=== PATIENT | female | born 1980 ===

== ENCOUNTER 2020-08-30 12:55 | Outpatient (REF) | payer OTHER, SELFPAY ==
[2020-09-05 17:38] LABS: HPV mRNA E6/E7 Detected (Not Detected)
[2020-09-11 10:18] LABS: HPV 16 RNA NOT DETECTED
== END 2020-08-30 12:56 | disposition home or self-care (01) ==
LOC: HO.LAB 12:55
PROVIDERS: Visit Provider Advanced Practice Midwife
DX: Z34.90 Encounter for supervision of normal pregnancy, unspecified, unspecified trimester (principal); R10.32 Left lower quadrant pain; Z20.2 Contact with and (suspected) exposure to infections with a predominantly sexual mode of transmission
CPT/HCPCS: 36415; 81025; 87491; 87591; 87624; 87625; 88141; 88142

== ENCOUNTER 2020-09-02 13:36 | Outpatient (REF) | payer OTHER, SELFPAY ==
--- NOTE | 2020-09-02 13:40 | US_ITS ---
EXAMINATION: LIMITED OB ULTRASOUND CLINICAL INFORMATION: Check size and dates COMPARISON: None TECHNIQUE: Transabdominal first trimester OB ultrasound FINDINGS: The uterus is normal in size and shape. There is an intrauterine gestational sac. [place]-rump length measures 5.9 cm suggesting gestational age of 12 weeks 3 days with estimated date of delivery of 03/14/2021. heart rate is 158 bpm. There is no yolk sac is seen. The right ovary is not seen. The left ovary is normal-appearing and measures 2.4 x 1.5 x 2.1 cm. There is no fluid in the pelvis. US/US OB limited IMPRESSION: Single viable intrauterine . From today's measurements, gestational age is estimated at 12 weeks 3 days with estimated date of delivery of 03/14/2021.
== END 2020-09-02 13:37 | disposition home or self-care (01) ==
LOC: HO.US 13:36
PROVIDERS: Visit Provider Advanced Practice Midwife
DX: Z34.90 Encounter for supervision of normal pregnancy, unspecified, unspecified trimester (principal)
CPT/HCPCS: 76815; 99212

== ENCOUNTER 2020-09-05 09:52 | Day surgery (SDC) | payer OTHER, SELFPAY ==
--- NOTE | 2020-09-04 09:25 | P.CONAN_ITS ---
Documented by User: Bianca Irizarry 09/04/20 09:28 HPI - Anesthesia Eval Consult details Narrative: 40yo F for D&C [facility] Past Medical History Medical History Gestational diabetes Family History Family History Mother Liver cancer Surgical History Surgical History Hx of appendectomy Hx of cholecystectomy Social History Social History Alcohol intake: never Smoking Status: Never smoker Use of substances other than those prescribed or required for medical reasons: No Advance Directives: No Advance Directives Information Provided: Yes Gender identity: female Meds Allergies Allergy/AdvReac Type Severity Reaction Status Date / Time No Known Allergies Allergy Verified 09/02/20 14:16 [No Known Allergies*] Exam Exam Date and Time: September 04, 2020 0925 Airway Adult Head Mouth w/Numbe Teeth: 1. Missing 2. Missing 3. Missing 4. Missing 5. Missing Assessment and Plan Assessment Anesthesia Assessment: Chart Reviewed Documented by User: José Batres MD 09/05/20 11:48 [facility] Past Medical History Medical History Gestational diabetes Family History Family History Mother Liver cancer Surgical History Surgical History Hx of appendectomy Hx of cholecystectomy Social History Social History Alcohol intake: never Smoking Status: Never smoker Use of substances other than those prescribed or required for medical reasons: No Advance Directives: No Advance Directives Information Provided: Yes Gender identity: female Meds Allergies Allergy/AdvReac Type Severity Reaction Status Date / Time No Known Allergies Allergy Verified 09/02/20 14:16 [No Known Allergies*] Exam Airway Mallampati Class: II TM Dist: >3cm Neck ROM: Full Adult Head Mouth w/Numbe Teeth: 1. Missing 2. Missing 3. Missing 4. Missing 5. Missing Loose/Missing/Broken Teeth: Yes Heart: RRR Lungs: nonlabored Assessment and Plan Assessment Anesthesia Assessment: Anesthesia Plan Discussed and Chart Reviewed Final Anesthetic Review NPO: Yes ASA Class: II Final Preanesthetic Review: No Changes in Pt Med Stat, Meds/Allgs Chart Reviewed, Consent Obtained/Reviewed and Anes Risks/Benef Reviewed Patient Risk: Low Procedure Risk: Low Anesthetic Plan Anesthetic Plan: GA Disposition: Standard PACU
[2020-09-05 10:05] VITALS: BP 123/64; PULSE 100; RESP 16; TEMP 37.2; O2SAT 98
[2020-09-05 10:14] VITALS: BMI 27.1
[2020-09-05] MEDS: Lactated Ringers 1,000 ML 100 ML IVCONT (10:35)
--- NOTE | 2020-09-05 11:38 | MHC.SHP ---
Pre-Procedural Eval Section A The patient is an INPATIENT: No Changes since office visit: No Cold of Flu in the past 2 weeks, No New Medical Problems, No Changes in Medication and No Patient answered all questions The History & Physical has been completed within 30 days and I have reviewed it.: Yes Section B Chief Complaint: unwanted Allergies: Allergies Allergy/AdvReac Type Severity Reaction Status Date / Time No Known Allergies Allergy Verified 09/02/20 14:16 [No Known Allergies*] Plan I have reviewed the history and physical and performed a pertinent physical examination on my patient. No changes have occurred unless specified.
--- NOTE | 2020-09-05 11:58 | HO.ANESPROP2 ---
[facility] Past Medical History Medical History Gestational diabetes Family History Family History Mother Liver cancer Surgical History Surgical History Hx of appendectomy Hx of cholecystectomy Social History Social History Alcohol intake: never Smoking Status: Never smoker Use of substances other than those prescribed or required for medical reasons: No Advance Directives: No Advance Directives Information Provided: Yes Gender identity: female Meds Allergies Allergy/AdvReac Type Severity Reaction Status Date / Time No Known Allergies Allergy Verified 09/02/20 14:16 [No Known Allergies*] Exam Exam Date and Time: September 05, 2020 1158 Height,Weight and Vital Signs: Height 5 ft 3 in Weight 69.4 kg Last Vital Signs Temp 98.9 F 09/05/20 10:05 Pulse 100 09/05/20 10:05 Resp 16 09/05/20 10:05 BP 123/64 09/05/20 10:05 Pulse Ox 98 09/05/20 10:05 Airway Mallampati Class: II TM Dist: >3cm Neck ROM: Full Assessment and Plan Assessment Anesthesia Assessment: Anesthesia Plan Discussed Final Anesthetic Review NPO: Yes ASA Class: II Final Preanesthetic Review: No Changes in Pt Med Stat, Meds/Allgs Chart Reviewed, Consent Obtained/Reviewed and Anes Risks/Benef Reviewed Patient Risk: Low Procedure Risk: Low Assessment/Block/Sedation in SS: Assess/Block/Sedation-SS Anesthetic Plan Anesthetic Plan: MAC: Disposition: Standard PACU
--- NOTE | 2020-09-05 12:24 | W.PM.OPN ---
Operative Note Operative Note Date of Service: 09/05/20 Narrative: Ms. Holliday is a 40 year old with SIUP at 12 6/7 weeks by wk . She presents today for suction dilation and curettage for termination. Surgical Risks: The patient was informed of the risks and benefits of suction dilation and curettage. Risks included but were not limited to bleeding, infection, injury to the vulva, vagina, or cervix, and uterine perforation with possible need for further surgery. The patient expressed understanding of the risks involved, all questions were answered, and the patient consented to the procedure. The patient was taken to the operating room where a time out was confirmed to confirm correct patient and correct procedure. Adequate IV sedation was established. The patient was then positioned on the operating table in the dorsal lithotomy position with her legs supported using stirrups. All pressure points were padded and a warm blanket was placed to maintain control of core body temperature. The patient was then prepped and draped in the usual sterile fashion. A bimanual exam was performed and the uterus was found to be approximately 13 cm size, anteverted. A bivalve speculum was then inserted into the vagina. The anterior lip of the cervix was visualized and grasped using a single tooth tenaculum. The cervix was adequately dilated using Carter dilators for the introduction of the size 14 suction curette. The suction curette was then introduced and advanced to the fundus and suction was applied. The suction curette was rotated in a clockwise fashion as it was slowly withdrawn. Suction was turned off before the curette was removed through the cervix. A second pass with the curette was made with no further tissue noted and minimal blood. Suction was turned off before the curette was removed. A size 8 suction curette was then advanced to the fundus and suction applied. The curette was rotated in a clockwise fashion as it was slowly withdrawn. No further return of tissue or blood was noted and suction was turned off before the curette was then removed. A sharp curette was then introduced and sharp curettinging was performed starting at the 12 o?clock position and rotating a total of 360 degrees in order to confirm the uterine crie was present on all surfaces. Following the curetting, good hemostasis was noted. The products of conception were then examined to confirm two uppers, two lowers, spinal cord, cranium, intestines, and placenta were all identified. POC were sent to pathology. The single-tooth tenaculum was removed from the anterior lip of the cervix and hemostasis was also noted at the tenaculum puncture sites. The speculum was then removed from the vagina. At the end of the procedure, all needle, sponge, and instrument counts were noted to be correct x2. The patient was transferred to the recovery room in stable condition.
[2020-09-05 12:30] VITALS: BP 107/65; PULSE 87; RESP 16; TEMP 36.6; O2SAT 98
[2020-09-05 12:35] VITALS: BP 111/70; PULSE 90; RESP 16; O2SAT 100
[2020-09-05 12:40] VITALS: BP 117/55; PULSE 81; RESP 16; O2SAT 100
[2020-09-05 12:45] VITALS: BP 117/51; PULSE 81; RESP 20; O2SAT 100
[2020-09-05 13:00] VITALS: BP 115/55; PULSE 82; RESP 20; O2SAT 100
--- NOTE | 2020-09-05 13:48 | HO.POSTANES ---
Post Anesthesia Evaluation Post Anesthesia Evaluation Vital Signs: Vital Signs Temp Pulse Resp BP Pulse Ox 09/05/20 13:00 97.9 F 82 20 115/55 L 100 09/05/20 12:45 81 20 117/51 L 100 09/05/20 12:40 81 16 117/55 L 100 09/05/20 12:35 90 16 111/70 100 09/05/20 12:30 97.9 F 87 16 107/65 98 09/05/20 10:05 98.9 F 100 16 123/64 98 Anesthesia: Monitored Mental Status: Awake Pain Control: Satisfactory Nausea/Vomiting: None Hydration: Adequate Anesthesia-Related Issues: No Anes. Related Issues
== END 2020-09-05 14:25 | disposition home or self-care (01) ==
LOC: HO.SSS 09:54
PROVIDERS: Visit Provider Obstetrics & Gynecology
PROC: (CPT 59841; principal; 2020-09-05 11:20)
DX: Z33.2 Encounter for elective termination of pregnancy (principal); Z64.0 Problems related to unwanted pregnancy; Z90.49 Acquired absence of other specified parts of digestive tract
CPT/HCPCS: 59841; 88305; J2250; J2405; J3010

== ENCOUNTER → 2020-09-18 11:44 | Outpatient (BNVA) | payer OTHER, SELFPAY | PROVIDERS: Visit Provider Obstetrics & Gynecology ==

== ENCOUNTER → 2020-10-07 13:13 | Outpatient (BNVA) | payer OTHER, SELFPAY | PROVIDERS: Visit Provider Advanced Practice Midwife | DX: Z30.42 Encounter for surveillance of injectable contraceptive (principal) | CPT/HCPCS: 96372 ==

== ENCOUNTER 2020-11-04 14:00 | Outpatient (REF) | payer OTHER, SELFPAY | END 2020-11-04 14:01 | disposition home or self-care (01) | LOC: HO.LAB 14:00 | PROVIDERS: Visit Provider Obstetrics & Gynecology | DX: N87.0 Mild cervical dysplasia (principal) | CPT/HCPCS: 57454; 81025; 88305 ==

== ENCOUNTER → 2020-11-26 13:48 | Outpatient (BNVA) | payer OTHER, SELFPAY | PROVIDERS: Visit Provider Obstetrics & Gynecology ==

== ENCOUNTER → 2021-02-19 14:55 | Outpatient (BNVA) | payer OTHER, SELFPAY | PROVIDERS: Visit Provider Advanced Practice Midwife | DX: Z30.42 Encounter for surveillance of injectable contraceptive (principal) | CPT/HCPCS: 81025; 96372; 99212 ==

== ENCOUNTER → 2021-03-20 15:12 | Outpatient (BNVA) | payer OTHER, SELFPAY | PROVIDERS: Visit Provider Advanced Practice Midwife ==

== ENCOUNTER → 2021-05-16 13:08 | Outpatient (BNVA) | payer OTHER, SELFPAY | PROVIDERS: Visit Provider Advanced Practice Midwife | DX: Z30.42 Encounter for surveillance of injectable contraceptive (principal) | CPT/HCPCS: 96372; 99211 ==

== ENCOUNTER → 2021-08-07 12:35 | Outpatient (BNVA) | payer OTHER, SELFPAY | PROVIDERS: Visit Provider Advanced Practice Midwife | DX: Z30.42 Encounter for surveillance of injectable contraceptive (principal) | CPT/HCPCS: 96372; 99211 ==

== ENCOUNTER → 2021-10-31 09:10 | Outpatient (BNVA) | payer OTHER, SELFPAY | PROVIDERS: Visit Provider Advanced Practice Midwife | DX: Z30.42 Encounter for surveillance of injectable contraceptive (principal) | CPT/HCPCS: 96372; 99211 ==

== ENCOUNTER 2021-11-07 10:08 | Outpatient (REF) | payer OTHER, SELFPAY ==
[2021-11-07 17:54] LABS: CT PCR NOT DETECTED (Not Detect.); NG PCR NOT DETECTED (Not Detect.)
[2021-11-14 07:22] LABS: HPV 16 RNA NOT DETECTED (NOT DETECTED); HPV mRNA E6/E7 rflx Detected (Not Detected)
== END 2021-11-07 10:09 | disposition home or self-care (01) ==
LOC: HO.LAB 10:08
PROVIDERS: Visit Provider Advanced Practice Midwife
DX: Z01.411 Encounter for gynecological examination (general) (routine) with abnormal findings (principal); Z11.51 Encounter for screening for human papillomavirus (HPV); Z11.3 Encounter for screening for infections with a predominantly sexual mode of transmission; N87.0 Mild cervical dysplasia
CPT/HCPCS: 87491; 87591; 87624; 87625; 88142

== ENCOUNTER → 2022-01-29 15:03 | Outpatient (BNVA) | payer OTHER, SELFPAY | PROVIDERS: Visit Provider Advanced Practice Midwife | DX: Z30.42 Encounter for surveillance of injectable contraceptive (principal) | CPT/HCPCS: 96372; 99211 ==

== ENCOUNTER 2022-02-17 15:28 | Outpatient (REF) | payer OTHER, SELFPAY | END 2022-02-17 15:29 | disposition home or self-care (01) | LOC: HO.LAB 15:28 | PROVIDERS: Visit Provider Obstetrics & Gynecology | DX: R87.610 Atypical squamous cells of undetermined significance on cytologic smear of cervix (ASC-US) (principal); R87.810 Cervical high risk human papillomavirus (HPV) DNA test positive | CPT/HCPCS: 57454; 88305; 88342; 88360 ==

== ENCOUNTER → 2022-04-27 12:51 | Outpatient (BNVA) | payer OTHER, SELFPAY | PROVIDERS: Visit Provider Advanced Practice Midwife | DX: Z30.42 Encounter for surveillance of injectable contraceptive (principal) | CPT/HCPCS: 96372; 99211 ==

== ENCOUNTER → 2022-06-15 13:40 | Outpatient (BNVA) | payer OTHER, SELFPAY | PROVIDERS: Visit Provider Obstetrics & Gynecology | DX: Z71.2 Person consulting for explanation of examination or test findings (principal) | CPT/HCPCS: 99212 ==

== ENCOUNTER 2022-07-10 11:39 | Day surgery (SDC) | payer OTHER, SELFPAY ==
[2022-07-07 10:11] VITALS: BMI 31.6
--- NOTE | 2022-07-10 12:32 | MHC.SHP ---
Pre-Procedural Eval Section A Date of Service: 07/10/22 The patient is an INPATIENT: No Changes since office visit: No Cold of Flu in the past 2 weeks, No New Medical Problems, No Changes in Medication and No Patient answered all questions The History & Physical has been completed within 30 days and I have reviewed it.: Yes Section B Chief Complaint: Persistent RIDDHI 1, no endocervical tissues on ECC Allergies: Allergies Allergy/AdvReac Type Severity Reaction Status Date / Time No Known Allergies Allergy Verified 07/07/22 10:11 [No Known Allergies*] Plan Diagnosis/Plan: Unchanged I have reviewed the history and physical and performed a pertinent physical examination on my patient. No changes have occurred unless specified.
--- NOTE | 2022-07-10 12:34 | P.CONAN_ITS ---
[facility] Active Problems Active Problems: All Active Problems (Updated 06/15/22 @ 14:16 by Seth Pagan MD) ASCUS with positive high risk HPV cervical (Acute) ASCUS of cervix with negative high risk HPV (Acute) RIDDHI I (cervical intraepithelial neoplasia I) (Acute) ASCUS with positive high risk HPV (Acute) Depot contraception (Acute) Family History Family History Mother Liver cancer Family history of problems with anesthesia: No Surgical History Surgical History Hx of appendectomy Hx of cholecystectomy History of Problems with Anesthesia: No Social History Social History (Updated 07/07/22 @ 10:17 by Jelly Hernandez RN) Household Members Other:: daughter Are you a primary acute care clinical nurse specialist to a significant other at home: No Do you presently have visiting nurse or other home services: No Alcohol intake: never Patient Tobacco Use Status: Never used Tobacco Use of substances other than those prescribed or required for medical reasons: No Have you been hit, kicked, punched, or otherwise hurt by someone within the past year? If so, by whom?: No Are you DNR?: No Advance Directives: No Advance Directives Information Provided: Yes Advance Directives on File: No Recently lost weight without trying: No Nutrition Risks: No Nutritional Risk Patient : No FDLMP: unknown : No Poor oral hygiene: No (partial upper) Gender identity: Female Meds Allergies Allergy/AdvReac Type Severity Reaction Status Date / Time No Known Allergies Allergy Verified 07/07/22 10:11 [No Known Allergies*] Active Medications: Current Medications Lactated Ringer's (Lr) 1,000 mls @ 100 mls/hr IVCONT .Q10H OLIVIER Exam Exam Date and Time: July 10, 2022 1234 Height,Weight and Vital Signs: Height 5 ft 3 in Weight 81 kg Airway Mallampati Class: II TM Dist: >3cm Neck ROM: Full Partial: Upper Heart: rrr Lungs: cta Assessment and Plan Assessment Anesthesia Assessment: Anesthesia Plan Discussed and Chart Reviewed Final Anesthetic Review Family History of Problems with Anesthesia: No History of Problems with Anesthesia: No NPO: Yes ASA Class: I Final Preanesthetic Review: No Changes in Pt Med Stat, Meds/Allgs Chart Reviewed and Consent Obtained/Reviewed Patient Risk: Intermediate Procedure Risk: Intermediate Anesthetic Plan Anesthetic Plan: GA Disposition: Standard PACU
[2022-07-10 12:40] VITALS: BP 115/69; PULSE 91; RESP 18; TEMP 37.1; O2SAT 98; BMI 27.9
[2022-07-10 12:58] VITALS: BMI 27.9
[2022-07-10 13:04] LABS: Amphetamine Screen Urine Not Detected (Not Detect); Barbiturates, Urine Not Detected (Not Detect); Benzodiazepines Screen Urine Not Detected (Not Detect); Cannabinoid Screen Urine Not Detected (Not Detect); Cocaine Screen Urine Not Detected (Not Detect); Fentanyl, urine Not Detected (Not Detect); Opiate Screen Urine Not Detected (Not Detect); Phencyclidine Screen Urine Not Detected (Not Detect)
[2022-07-10] MEDS: Lactated Ringers 1,000 ML 100 ML IVCONT (13:15)
[2022-07-10 13:55] LABS: UPreg QC Valid YES; Urine Pregnancy NEGATIVE (NEGATIVE)
--- NOTE | 2022-07-10 14:19 | PM.OP ---
Brief Operative Note Date of Service: 07/10/22 Pre-op diagnosis: Persistent RIDDHI 1 and no tissues on endocervical curettage Post-op diagnosis: same Procedure: LEEP cone with post cone endocervical curettage Surgeon: Seth Pagan MD Anesthesia: GLMA Was an Rubber Compounder Supervisor used for this Procedure?: No Estimated blood loss (mL): 0 Pathology: other (Cervical cone, top-hat, Post cone ECC) Condition: stable Disposition: other (Home)
--- NOTE | 2022-07-10 14:20 | P.OP_ITS ---
Operative Note Operative Note Date of Service: 07/10/22 Narrative: Pre op diagnosis: Persistent RIDDHI 1 with no endocervical tissues on ECCOperation: Colposcopy, Loop electrical excision procedure cone, top hat endocervical excision, post cone ECC Postop diagnosis: the same Quantitative blood loss: Minimal cc Surgeon: Seth Pagan MD, FACOG Opto Mechanical Engineer: None Pathology: Cervical cone, top-hat endo cervical excision, endo cervical curettage Complications: none Anesthesia: MAC and Para cervical block Procedure: The patient was put in a dorsal lithotomy position, scrubbed and draped in the usual sterile fashion. A speculum was inserted inside the patient's vagina. The cervix is assessed using the colposcope with acetic acid , the lesions were seen, and at least 1 cm of the squamocolumnar junction was observed. 20 x 5 mm size loop was selected based upon the diameter of the lesion. Lugol solution was used to outline the lesions and area of the transformation zone order to be removed 10 cc of xylocaine with epinephrine were injected submucosally into the surface of the cervix (ectocervix) at the 3, 6, 9, and 12 o'clock positions. The electrosurgical generator is set at 40 delgado on blend 1. The loop is carefully passed simultaneously around and under the transformation zone, in order to ensure excising it making sure the lesion is at least 5 mm far from the specimen margins . The loop was allowed to glide through the cervix from one side to the other, allowing the cutting current to divide the tissue. Since ECC did not contain any endocervical tissues endo cervical disease could be beyond the reach of the loop, additional tissue was excised from this area with a smaller-diameter loop , endo cervical top-hat excision was performed An endo cervical curettage is performed following completion of excision, and hemostasis is obtained with a Ball electrode or regular tip cautery. At the end, Monsel's solution was applied to the cone bed. The patient tolerated the procedure well and, all instruments were taken out of the patient vaginal cavity, and the patient was transferred to the PACU in stable condition.
[2022-07-10 14:31] VITALS: BP 106/74; PULSE 89; RESP 14; TEMP 37.1; O2SAT 98
[2022-07-10 14:36] VITALS: BP 129/84; PULSE 97; RESP 16; O2SAT 98
[2022-07-10 14:41] VITALS: BP 130/86; PULSE 81; RESP 16; O2SAT 96
[2022-07-10 14:46] VITALS: BP 141/84; PULSE 79; RESP 16; O2SAT 96
[2022-07-10 15:01] VITALS: BP 135/84; PULSE 80; RESP 16; TEMP 37.2; O2SAT 96
== END 2022-07-10 15:26 | disposition home or self-care (01) ==
PROVIDERS: Nurse Practitioner; PCP Obstetrics & Gynecology; Visit Provider Obstetrics & Gynecology
PROC: 0UBC7ZZ Excision of Cervix, Via Natural or Artificial Opening (ICD-10-PCS; CPT 57522; principal; 2022-07-10 13:10)
DX: N87.0 Mild cervical dysplasia (principal); Z90.49 Acquired absence of other specified parts of digestive tract; Z79.1 Long term (current) use of non-steroidal anti-inflammatories (NSAID); Z79.899 Other long term (current) drug therapy
CPT/HCPCS: 57461; 80307; 81025; 88305; 88307; J1100; J2405; J3010

== ENCOUNTER → 2022-07-21 15:23 | Outpatient (BNVA) | payer OTHER, SELFPAY | PROVIDERS: PCP Obstetrics & Gynecology; Visit Provider Advanced Practice Midwife | DX: Z30.42 Encounter for surveillance of injectable contraceptive (principal) | CPT/HCPCS: 96372; 99211 ==

== ENCOUNTER → 2022-10-07 13:02 | Outpatient (BNVA) | payer OTHER, SELFPAY | PROVIDERS: Visit Provider Obstetrics & Gynecology | DX: N87.0 Mild cervical dysplasia (principal) | CPT/HCPCS: 99212 ==

== ENCOUNTER → 2022-10-19 08:55 | Outpatient (BNVA) | payer OTHER, SELFPAY | PROVIDERS: Visit Provider Advanced Practice Midwife | DX: Z30.42 Encounter for surveillance of injectable contraceptive (principal) | CPT/HCPCS: 96372; 99211 ==

== ENCOUNTER → 2023-01-11 08:59 | Outpatient (BNVA) | payer BC, MEDICAID, SELFPAY | PROVIDERS: Visit Provider Advanced Practice Midwife | DX: Z30.42 Encounter for surveillance of injectable contraceptive (principal) | CPT/HCPCS: 96372 ==

== ENCOUNTER 2023-02-01 08:51 | Emergency (ER) | payer BC, MEDICAID, SELFPAY ==
--- NOTE | ~2023-02-01 | CT_ITS ---
EXAMINATION: CT HEAD WITHOUT CONTRAST CLINICAL INFORMATION: Fall, struck head, on blood thinners COMPARISON: None available. TECHNIQUE: Contiguous axial imaging was performed from the skull base to vertex without intravenous administration of contrast. This CT examination was performed using dose optimization techniques as appropriate, variously including the following: *Automated exposure control *Adjustment of mA and/or kV according to patient size (this includes techniques or standardized protocols for targeted exams where dose is matched to indication/reason for exam; i.e. extremities or head) *Use of iterative reconstruction technique DLP: 618 mGy-cm FINDINGS: No evidence for acute bleed or mass effect. Cisterns are unremarkable. No intraventricular blood seen. There is no evidence for extra-axial collection. [place]/white matter differentiation is maintained. The mastoids appear well aerated. Skull base unremarkable. No appreciable calvarial disruption. CT/CT head/brain wo IV con IMPRESSION: No evidence for acute process.
[2023-02-01 09:14] VITALS: BP 131/72; PULSE 78; TEMP 36.4; O2SAT 98; BMI 25.4
--- NOTE | 2023-02-01 09:30 | ED.GENADULT ---
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 She describes the pain as over her left eye and around her left ear. Also reports receiving news of 1-year-old nephew drowning on Wednesday, so increased stress since then. Reports headache was gradual onset, denies worst headache of life. Denies syncope. Denies any falls or other trauma. Denies blurred vision, double vision, or other visual changes. Reports left ear pain is exacerbated by loud noises. Denies chest pain or dyspnea. Denies any recent tick bites, reports pruritic rash to bilateral forearms. She states that her forearm rash is poison nolan which is activated every year by pollen in the air. Used Tylenol/ibuprofen without relief. MD complaint: headache, left arm tingling Onset (ago): day(s) Location: head and upper extremity Severity scale (1-10): 8 Quality: dull Pain Consistency: constant Relieving factors: none Exacerbating factors: none Associated symptoms: denies other symptoms Treatments prior to arrival: NSAID Related Data Previous Rx's Medication Instructions Recorded acetaminophen 325 mg capsule 650 mg PO Q8H #120 caps 09/04/20 ibuprofen 800 mg tablet 800 mg PO Q8H #60 tabs 09/04/20 medroxyprogesterone 150 mg/mL 150 mg IM Q12W #1 mL 01/05/23 intramuscular suspension doxycycline hyclate 100 mg capsule 100 mg PO BID #28 caps 02/01/23 prednisone 20 mg tablet 60 mg PO DAILY 7 days #21 tabs 02/01/23 valacyclovir 1 gram tablet 1,000 mg PO TID 7 days #21 tabs 02/01/23 Allergies Allergy/AdvReac Type Severity Reaction Status Date / Time No Known Allergies Allergy Verified 07/07/22 10:11 [No Known Allergies*] Review of Systems Review of Systems: As per HPI. Yes all other systems are reviewed and are negative ENT: Reports Normal hearing present Neurologic: Reports Normal hearing present and Denies Abnormal speech present [facility] Past Medical History Surgical History Hx of appendectomy Hx of cholecystectomy Family History Family History Mother Liver cancer Social History Social History Household Members Other:: daughter Are you a primary career manager to a significant other at home: No Do you presently have visiting nurse or other home services: No Alcohol intake: current Alcohol intake frequency: holidays/special occasions only Patient Tobacco Use Status: Never used Tobacco Smoked in Last 30 Days: No Use of substances other than those prescribed or required for medical reasons: No Advance Directives: No Advance Directives Information Provided: No Gender identity: Female Physical Exam ED Vital Signs: Vital Signs - 24 hr 02/01/23 09:14 02/01/23 09:42 02/01/23 12:21 Temperature 97.6 F 98.1 F Pulse Rate 78 78 81 Respiratory Rate 18 Blood Pressure 131/72 122/50 L 118/50 L Pulse Oximetry 98 97 100 Oxygen Delivery Method Room Air Room Air Room Air BMI result Body Mass Index 25.4 Vital signs have been reviewed and appear to be correct. Blood pressure normal. Heart rate normal. Respiratory rate normal. Temperature normal. Oxygen saturation normal. Const General: cooperative, healthy appearing, no acute distress, alert and awake Orientation/consciousness: patient oriented x3 Limitations: no limitations [facility] Head: Yes normal to inspection, Yes No palpable skull fracture present, Yes normocephalic, Yes atraumatic and No Temporal artery tenderness present Ears: hearing grossly normal bilaterally, TM's normal bilaterally, EAC's normal, external ear abnormal pain with movement of external ear on the left, mastoid abnormal (left mastoid tenderness) and no periauricular adenopathy General nose exam: Normal external nose present, Normal nares present and Normal septum present Face and sinus: Yes normal facial exam and Yes sinuses nontender Mouth: Normal oral and palatal mucosa present, tongue normal, oropharynx normal and moist mucous membranes Teeth and gingiva: dentition normal Throat: Yes posterior oropharynx normal, Yes tonsils normal and Yes uvula midline Eyes General: appearance normal, both eyes and all related structures Visual Cottrell: normal visual cottrell by confrontation Pupils: Equal, round and reactive pupils present EOM: EOMs intact bilaterally Neck Neck: Yes normal visual inspection, Yes full ROM and Yes supple Chest Chest palpation & inspection: normal inspection of the chest and normal palpation of entire chest wall Resp Effort & Inspection: normal respiratory effort and able to speak in complete sentences Auscultation: clear to auscultation bilaterally Cardio Rate: regular rate Rhythm: regular rhythm Heart sounds: S1 normal heart sound present and S2 normal heart sound present GI Inspection: Yes normal to inspection Palpation (GI): Soft to palpation and nontender Auscultation: normoactive bowel sounds General: Yes no CVA tenderness Back/Spine/Pelvis Back: no CVA tenderness Cervical Spine: No cervical muscular tenderness, No cervical spasm and No Cervical spine tenderness Skin Other: No erythema migrans noted General skin exam: elasticity normal and turgor normal Rashes: rashes noted papules bilateral mid forearm size (2-3mm) and color red; nontender Neuro General: patient oriented x3, tone normal, moves all extremities and Normal light touch and pain sensation Cranial nerves: Yes Facial sensation intact/muscles of mastication intact, Yes Intact sense of smell present, Yes Equal, round and reactive pupils present, Yes Normal accommodation reflex present, Yes Bilaterally intact EOM present, Yes Nystagmus not present, No Normal facial strength present (slight left facial droop with smile; unable to raise left eyebrow), Yes Midline tongue present, Yes Normal gag reflex present, Yes Symmetric palate elevation present, Yes Normal hearing present, Yes Ability to bilaterally rotate head present, Yes Ability to bilaterally elevate shoulders present and Yes Individual cranial nerve findings present VII: abnormal Cognition (Neuro): normal cognition Speech: No Abnormal speech present Motor exam (neuro): 5/5 motor strength present throughout, Pronator motor function not present, Normal motor muscle tone present throughout and Motor abnormalities not present Sensory Exam: Normal double simultaneous stimulation for sensation Extrem General: Yes normal to inspection, Yes full ROM and Yes capillary refill normal Psych Appearance: grossly normal and well kempt Mental Status: mental status grossly normal Speech and movement: Normal speech and movement present Affect: normal affect Attitude: cooperative NIH Stroke Scale Internal: Initial- Upon Arrival Time: 10:00 Level of Consciousness: Alert Level of Consciousness Questions: Answers both questions correctly Level of Consciousness Commands: Performs both tasks correctly Best Gaze: Normal Visual: No visual loss Facial Palsy: Minor paralyis Motor Arm (Right): No drift Motor Arm (Left): No drift Motor Leg (Right): No drift Motor Leg (Left): No drift Limb Ataxia: Absent Sensory: Normal Best Language: No aphasia Dysarthia: Normal Extinction and Inattention: No abnormality Score: 1 Course Course Course Narrative: 11:40 Patient denies relief of headache from medications administered. CT head negative for acute ICH, will order ketorolac. 12:29 Case discussed with and patient evaluated by Dr. Hannah, who feels symptoms are consistent with [place] Palsy. Patient stable for discharge home at this time. Will prescribe prednisone as well as doxycycline while tick panel is pending. Given recent onset of symptoms will also treat with valcyclovir. Instructed patient to follow up with her PCP this week. All results discussed and questions answered. Return precautions discussed at bedside. Patient verbalized understanding of and agreement with plan. Medications Administered Discontinued Medications Generic Name Dose Route Start Last Admin Trade Name Suryaq PRN Reason Stop Dose Admin Diphenhydramine HCl 25 mg 02/01/23 10:16 02/01/23 10:41 Diphenhydramine Hcl 50 Mg/Ml Vial IVPUSH 02/01/23 10:17 25 mg ONCE ONE Administration Sodium Chloride 1,000 mls @ 999 mls/hr 02/01/23 10:30 02/01/23 10:44 Ns IV 02/01/23 11:30 999 mls/hr .Q1H1M OLIVIER Administration Ketorolac Tromethamine 15 mg 02/01/23 11:34 02/01/23 11:46 Ketorolac Tromethamine 15 Mg/Ml Vial IVPUSH 02/01/23 11:35 15 mg ONCE ONE Administration Metoclopramide HCl 10 mg 02/01/23 10:16 02/01/23 10:42 Metoclopramide Hcl 10 Mg/2 Ml Vial IVPUSH 02/01/23 10:17 10 mg ONCE ONE Administration Medical Decision Making Medical Decision Making [facility] Narrative: Patient is a 42-year-old female with history of cervical neoplasia s/p LEEP in October of this year, cholecystectomy, appendectomy presenting to the emergency department with complaint of left sided headache, left ear pain, as well as tingling to left arm since Wednesday. On exam patient is awake, A+Ox3, VS WNL, NIHSS of 1, noted to have slight left facial droop with smile, tongue is midline, left mastoid tenderness, EACs and TMs normal bilaterally, PERRL, EOMs intact, normal shoulder shrug, no pronator drift, all extremities 5/5 equal strength. Concern for CVA/ICH, complex migraine, [place] palsy, mastoiditis. Less likely temporal arteritis. Will obtain EKG and troponin given left arm tingling. Unlikely acute glaucoma, carotid artery dissection, encephalitis, meningitis, pseudotumor cerebrii, giant cell arteritis. Plan: EKG, labs including troponin, ESR/CRP, tick borne panels, CT head. Please refer to course for remaining clinical decision making. Differential Diagnosis Differential Diagnoses: The differential diagnosis associated with the presentation includes As above. Admission/Observation Consideration of admission/observation: Escalation of care including admission/observation considered With left facial paralysis and headache considered admission on initial assessment. Consult Healthcare Provider Management of the patient was discussed with: Mental Health Unit Lead Psychologist (Dr. Hannah) Lab Data MDM Lab Attestation statement: I reviewed the patient's lab results. 02/01/23 10:09 02/01/23 10:09 Labs: Lab Results 02/01/23 02/01/23 02/01/23 Range/Units 10:09 10:09 10:09 WBC 6.7 (4.8-10.8) X10*3/uL RBC 4.51 (4.20-5.50) X10*6/uL Hgb 12.5 (12.0-16.0) g/dl Hct 39.1 (37.0-47.0) % MCV 86.7 (80.0-98.0) fL MCH 27.7 (27.0-33.0) pg MCHC 32.0 (31.0-35.0) g/dl RDW 13.9 (11.0-16.0) % Plt Count 396 (160-400) X10*3/uL MPV 9.1 L (9.4-12.3) fL Immature Gran % (Auto) 0.4 (0.0-0.4) % Neut % (Auto) 57.3 (45-73) % Lymph % (Auto) 33.1 (20-40) % Crosby % (Auto) 6.1 (2-11) % Eos % (Auto) 2.4 (0-4) % Baso % (Auto) 0.7 (0-2) % Lymph # (Auto) 2.2 (1.2-4.9) X10*3/uL Crosby # (Auto) 0.4 (0.1-1.2) X10*3/uL Eos # (Auto) 0.2 (0.0-0.4) X10*3/uL Baso # (Auto) 0.1 (0.0-0.2) X10*3/uL Abs Immat Gran (auto) 0.03 (0.00-0.03) X10*3/uL Absolute Neuts (auto) 3.9 (2.0-8.3) x10*3/uL Absolute Nucleated RBC 0.000 (0.0-0.012) X10*3/uL Nucleated RBC % (auto) 0.0 (0.0-0.2) /100WBC ESR 19 (0-20) MM/HR Sodium 139 (135-145) mmol/L Potassium 4.1 (3.3-5.1) mmol/L Chloride 108 (96-108) mmol/L Carbon Dioxide 23 (22-29) mmol/L Anion Gap 12 (12-20) BUN 9 (9-16) mg/dL Creatinine 0.74 (0.5-1.4) mg/dL Estim Creat Clear Calc 80.3 Estimated GFR > 60 Random Glucose 101 (60-115) mg/dL Calcium 9.4 (8.4-10.2) mg/dL Total Bilirubin 0.6 (0.0-1.0) mg/dL AST 21 (5-31) U/L ALT 19 (0-31) U/L Alkaline Phosphatase 59 (39-117) U/L Troponin I High Sens (<3.5-17.0) ng/L C-Reactive Protein 0.45 (< or = 0.50) mg/dL Total Protein 8.0 (6.5-8.0) g/dL Albumin 4.2 (3.5-5.0) g/dL Beta HCG, Quant mIU/mL 02/01/23 02/01/23 Range/Units 10:09 10:09 WBC (4.8-10.8) X10*3/uL RBC (4.20-5.50) X10*6/uL Hgb (12.0-16.0) g/dl Hct (37.0-47.0) % MCV (80.0-98.0) fL MCH (27.0-33.0) pg MCHC (31.0-35.0) g/dl RDW (11.0-16.0) % Plt Count (160-400) X10*3/uL MPV (9.4-12.3) fL Immature Gran % (Auto) (0.0-0.4) % Neut % (Auto) (45-73) % Lymph % (Auto) (20-40) % Crosby % (Auto) (2-11) % Eos % (Auto) (0-4) % Baso % (Auto) (0-2) % Lymph # (Auto) (1.2-4.9) X10*3/uL Crosby # (Auto) (0.1-1.2) X10*3/uL Eos # (Auto) (0.0-0.4) X10*3/uL Baso # (Auto) (0.0-0.2) X10*3/uL Abs Immat Gran (auto) (0.00-0.03) X10*3/uL Absolute Neuts (auto) (2.0-8.3) x10*3/uL Absolute Nucleated RBC (0.0-0.012) X10*3/uL Nucleated RBC % (auto) (0.0-0.2) /100WBC ESR (0-20) MM/HR Sodium (135-145) mmol/L Potassium (3.3-5.1) mmol/L Chloride (96-108) mmol/L Carbon Dioxide (22-29) mmol/L Anion Gap (12-20) BUN (9-16) mg/dL Creatinine (0.5-1.4) mg/dL Estim Creat Clear Calc Estimated GFR Random Glucose (60-115) mg/dL Calcium (8.4-10.2) mg/dL Total Bilirubin (0.0-1.0) mg/dL AST (5-31) U/L ALT (0-31) U/L Alkaline Phosphatase (39-117) U/L Troponin I High Sens < 2.7 (<3.5-17.0) ng/L C-Reactive Protein (< or = 0.50) mg/dL Total Protein (6.5-8.0) g/dL Albumin (3.5-5.0) g/dL Beta HCG, Quant < 2 mIU/mL Independent Interpretation I performed an independent interpretation of an: EKG and CT Scan Interpretation: EKG: normal sinus rhythm, rate 70bpm, normal SD and QT intervals, no evidence of STEMI I independently reviewed the CT scan and agree with the radiologist's interpretation. Radiology Impression Discussion of test interpretation with radiology: I have reviewed the radiologist's reading. Radiologist Impression: FINDINGS: No evidence for acute bleed or mass effect. Cisterns are unremarkable. No intraventricular blood seen. There is no evidence for extra-axial collection. [place]/white matter differentiation is maintained. The mastoids appear well aerated. Skull base unremarkable. No appreciable calvarial disruption. ? CT/CT head/brain wo IV con IMPRESSION: No evidence for acute process. External Record Review External record reviewed: Inpatient record, Office record and Outpatient record Prescription Management I considered prescription management with: Antiviral, Antibiotic and Other Discharge Plan Discharge Clinical Impression: Facial paralysis/[place] palsy Patient Disposition: Home, Self-Care Instructions: [place] Palsy (ED) Additional Instructions: Hoy lo evaluaron en el departamento de emergencias por dolor de lalitha, par?lisis facial y hormigueo en el brazo rai. [place] evaluaci?n, incluida la tomograf?a computarizada de [place] cerebro, no mostr? ariel?n hallazgo sheba. Est? pendiente el an?lisis de rubens que eval?a stacie posible infecci?n transmitida por garrapatas. Le est?n recetando doxiciclina, que es un antibi?enedina que trata las enfermedades transmitidas por garrapatas. Tambi?n le est?n recetando prednisona, que es un esteroide, y valciclovir, que es un antiviral para tratar [place] par?lisis de [place]. Por favor, payal un seguimiento con [place] proveedor de atenci?n primaria dentro de dos d?as. Regrese a la mateo de emergencias si empeora el dolor de lalitha, debilidad nueva o empeoramiento del entumecimiento u hormigueo en el brazo, confusi?n nueva, cambios en el habla o cualquier otro s?ntoma preocupante. No tome PADMAJA (ibuprofeno, naproxeno) mientras franci prednisona. Prescriptions: New prednisone 20 mg tablet 60 mg PO DAILY 7 Days Qty: 21 0RF doxycycline hyclate 100 mg capsule 100 mg PO BID Qty: 28 0RF valacyclovir 1 gram tablet 1,000 mg PO TID 7 Days Qty: 21 0RF No Action medroxyprogesterone 150 mg/mL suspension 150 mg IM Q12W Qty: 1 0RF ibuprofen 800 mg tablet 800 mg PO Q8H Qty: 60 1RF acetaminophen 325 mg capsule 650 mg PO Q8H Qty: 120 1RF Rx Instructions: Take four hours after ibuprofen and continue alternating
[2023-02-01 09:42] VITALS: BP 122/50; PULSE 78; RESP 18; TEMP 36.7; O2SAT 97
--- NOTE | 2023-02-01 09:52 | ECG_ITS ---
Test Reason : chest pressure Blood Pressure : / mmHG Vent. Rate : 070 BPM Atrial Rate : 070 BPM P-R Int : 170 ms QRS Dur : 072 ms QT Int : 374 ms P-R-T Axes : 018 005 013 degrees QTc Int : 403 ms Normal sinus rhythm Normal ECG No previous ECGs available Referred By: Connie Pardo Electronically Signed By:JEAN DONNELLY
[2023-02-01 10:14] LABS: MANUAL DIFF FLAG NO
[2023-02-01 10:18] LABS: Basophils Absolute Auto 0.1 X10*3/uL (0.0-0.2); Basophils Percent Auto 0.7 % (0-2); Eosinophils Absolute Auto 0.2 X10*3/uL (0.0-0.4); Eosinophils Percent Auto 2.4 % (0-4); Hematocrit 39.1 % (37.0-47.0); Hemoglobin 12.5 g/dl (12.0-16.0); Imm Gran Abs Auto 0.03 X10*3/uL (0.00-0.03); Imm Gran Pct Auto 0.4 % (0.0-0.4); Lymphocytes Absolute Auto 2.2 X10*3/uL (1.2-4.9); Lymphocytes Percent Auto 33.1 % (20-40); Mean Corpuscular Hemoglobin 27.7 pg (27.0-33.0); Mean Corpuscular Volume 86.7 fL (80.0-98.0); Mean Platelet Volume 9.1 fL (9.4-12.3); Monocytes Absolute Auto 0.4 X10*3/uL (0.1-1.2); Monocytes Percent Auto 6.1 % (2-11); Neutrophils Absolute Auto 3.9 x10*3/uL (2.0-8.3); Neutrophils Percent Auto 57.3 % (45-73); Platelet Count 396 X10*3/uL (160-400); Red Blood Count 4.51 X10*6/uL (4.20-5.50); Red Cell Distribution Width 13.9 % (11.0-16.0); White Blood Count 6.7 X10*3/uL (4.8-10.8)
[2023-02-01 10:37] LABS: Alanine Aminotransferase 19 U/L (0-31); Albumin Level 4.2 g/dL (3.5-5.0); Alkaline Phosphatase 59 U/L (39-117); Anion Gap 12 (12-20); Aspartate Amino Transferase 21 U/L (5-31); Bilirubin Total 0.6 mg/dL (0.0-1.0); Blood Urea Nitrogen 9 mg/dL (9-16); C Reactive Protein 0.45 mg/dL (< or = 0.50); Calcium 9.4 mg/dL (8.4-10.2); Carbon Dioxide 23 mmol/L (22-29); Chloride 108 mmol/L (96-108); Creatinine Clr Calc Pharmacy 80.3; Estimated Glomerular Filt Rate > 60; Glucose Random 101 mg/dL (60-115); Potassium 4.1 mmol/L (3.3-5.1); Sodium 139 mmol/L (135-145)
[2023-02-01] MEDS: diphenhydrAMINE HCL 50 MG/ML VIAL 25 MG IVPUSH (10:41)
[2023-02-01] MEDS: Metoclopramide HCl 10 MG/2 ML VIAL IVPUSH (10:42)
[2023-02-01] MEDS: 0.9 % Sodium Chloride 1,000 ML 999 ML IV (10:44)
[2023-02-01 10:55] LABS: HCG Quantitative < 2 mIU/mL; Troponin-I High Sensitivity < 2.7 ng/L (<3.5-17.0)
[2023-02-01 11:00] LABS: Erythrocyte Sedimentation Rate 19 MM/HR (0-20)
[2023-02-01] MEDS: Ketorolac Tromethamine 15 MG/ML VIAL IVPUSH (11:46)
[2023-02-01 12:21] VITALS: BP 118/50; PULSE 81; O2SAT 100
[2023-02-01 12:45] LABS: Appearance Urine Clear; Color Urine Yellow; Glucose Urine UA Negative (Negative); Leukocyte Esterase Urine Trace (Negative); Nitrite Urine Negative (Negative); Specific Gravity - Urine <= 1.005 (1.005-1.025); UMIC TRIGGER UACC YES; Urine Blood Trace (Negative); Urine Ketones Negative (Negative); Urine Protein Negative (Neg-Trace)
[2023-02-01 12:47] LABS: Bacteria Urine None Seen (None Seen); Hyaline Casts Urine 0-2 /LPF (0-2); RBC Urine 0-2 /HPF (0-2); Squamous Epithelial Cell Urine 0-2 /HPF (0-2); WBC Urine 0-5 /HPF (0-5)
--- NOTE | 2023-02-01 13:14 | PC.NURSE ---
Alert and oriented. Reviewed discharge instructions with patent who verbalized understanding
[2023-02-03 02:14] LABS: Lyme Abs Screen <0.90 index
[2023-02-05 22:09] LABS: Babesia IgG <1:64 titer (<1:64); Babesia IgM <1:20 titer (<1:20)
[2023-02-05 23:09] LABS: Rocky Mtn. Spot. Fever IgG Ab Not Detected (Not Detected); Rocky Mtn.Spot. Fever IgM Ab Not Detected (Not Detected)
[2023-02-11 09:44] LABS: A. Phagocytophilum Ab IgG <1:64 (<1:64); A. Phagocytophilum Ab IgM <1:20 (<1:20); E. Chaffeensis Ab IgG <1:64 (<1:64); E. Chaffeensis Ab IgM <1:20 (<1:20)
== END 2023-02-01 13:14 | disposition home or self-care (01) ==
PROVIDERS: Registered Nurse Emergency; Emergency Provider Emergency Medicine; PCP Nurse Practitioner Family
DX: G51.0 Bell's palsy (principal); R51.9 Headache, unspecified; R29.701 NIHSS score 1
CPT/HCPCS: 36415; 70450; 80053; 81001; 84484; 84702; 85025; 85652; 86140; 86617; 86618; 86666; 86753; 86757; 93005; 96374; 96375; 99284; 99285; J1200; J1885; J2765

== ENCOUNTER 2023-04-05 13:02 | Outpatient (AMB) | payer BC, MEDICAID, SELFPAY ==
--- NOTE | 2023-04-05 13:05 | MHC.PC.OV ---
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 Pt have 5 years without seeing a PCP. Pt is requesting a PE. Cable Tender Required: Yes Cable Tender Language: Power Distributor Name: [id number] Information Interpreted: non-clinical & clinical Accompanied by: Son Allergies No Known Allergies [No Known Allergies*] Allergy (Verified 04/05/23 13:28) Medication List - Last Reconciled 04/05/23 by ANTOINE Calvillo No Known Home Meds Tobacco use date assessed: 04/05/23 Dental Screening Dental Screen Date: 04/05/23 Did you have a dental visit in the last 12 months?: Yes Did you have a dental problem in the last 6 months where you did not have access to dental care?: No Was dental information given to patient?: Patient has dentist HPI HPI Comments History of Present Illness Details 42-year-old female new patient presents today for physical exam.PMH significant for RIDDHI 1 s/p LEEP procedure. Denies CP,palpitations,sob and syncope. At the End of this appointment patient reported was in ER for tick bite, treated with doxy and prednisone. Patient advised to follow up in 2 weeks for ER follow up. Follows with OBGYN. Mamogram: Ordered Eye exam: Recommended every couple of years UTD on TDAP, flu shot recommended in May. PFSH Surgical History Hx of appendectomy Hx of cholecystectomy Family History Mother Liver cancer Social History (Updated 04/05/23 @ 13:31 by ANTOINE Calvillo) Household Members Other:: daughter Housing: House Are you a primary manager home healthcare to a significant other at home: No Do you presently have visiting nurse or other home services: No Alcohol intake: current Alcohol intake frequency: holidays/special occasions only Patient Tobacco Use Status: Never used Tobacco e-Cigarette/Vaping Use: Never Used service: No Current occupational status: employed Current occupation: [employer] Gender identity: Female Cognitive needs: No Hearing needs: No Vision needs: No Female Reproductive History Menstrual Age of Menarche: 12 Questionnaire PHQ-9 Over the last 2 weeks, how often have you been bothered by any of the following problems? 1. Little interest or pleasure in doing things: not at all 2. Feeling down, depressed, or hopeless: not at all 3. Trouble falling or staying asleep, or sleeping too much: not at all 4. Feeling tired or having little energy: not at all 5. Poor appetite or overeating: not at all 6. Feeling bad about yourself - or that you are a failure or have let yourself or your family down: not at all 7. Trouble concentrating on things, such as reading the newspaper or watching television: not at all 8. Moving or speaking so slowly that other people could have noticed. Or the opposite - being so fidgety or restless that you have been moving around a lot more than usual: not at all 9. Thoughts that you would be better off or of hurting yourself in some way: not at all Total score: 0 Depression Screening Interpretation: Negative 57460 - PHQ-9 Billing: Yes Source: Developed by Drs. Juan Lomeli, Justine Plasencia, Oziel Mason and colleagues, with an educational gadiel from [employer]. Thrive Questionnaire Date Thrive assessed: 04/05/23 I am a: Patient What is your living situation today?: I have a steady place to live Within the past 12 months, did the food you bought not last and you didn't have the money to get more?: Never true Within the past 12 months, did you worry whether your food would run out before you got money to buy more?: Never true Do you have trouble paying for medicines?: No Do you have trouble getting transportation to medical appointments?: No Do you have trouble paying your heating and electricity bill?: No Do you have trouble taking care of your child, family member or friend?: No Do you have trouble with day-to-day activities such as bathing, preparing meals, shopping, managing finances, etc.?: No Are you currently unemployed and looking for a job?: No Are you interested in more education?: No Please select the resources that you would like help with: None Currently or been in a relationship where the following occur: no concerns reported AUDIT C Alcohol Use Questionnaire (AUDIT-C) 1. How often do you have a drink containing alcohol?: Monthly or less 2. How many drinks containing alcohol do you have on a typical day when you are drinking?: 1 or 2 3. How often do you have six or more drinks on one occasion?: Never Total Score: 1 REJI-7 AMB Questionnaire REJI-7 Date REJI - 7 assessed: 04/05/23 Feeling nervous, anxious, or on edge: 0 = Not at all Not being able to stop or control worryin = Not at all Worrying too much about different things: 0 = Not at all Trouble relaxin = Not at all Being so restless that it is hard to sit still: 0 = Not at all Becoming easily annoyed or irritable: 0 = Not at all Feeling afraid as if something awful might happen: 0 = Not at all Total REJI-7 score (0-4 normal; 5-9 mild; 10-14 moderate; 15-21 severe): 0 Source: Developed by Drs. Juan Lomeli, Justine Plasencia, Oziel Mason and colleagues, with an educational gadiel from [employer]. REJI-7 Assessment Billing REJI-7 Assessment Tool: REJI-7 Assessment [id number] Review of Systems Const Denies chills, Denies fatigue, Denies fever(s) and Denies poor appetite Eyes Denies no additional complaints ENT Reports Normal hearing present Card Denies chest pain, Denies syncope, Denies rapid heart rate and Denies dyspnea Resp Denies cough and Denies dyspnea GI Denies change in stool character, Denies constipation, Denies diarrhea, Denies nausea and Denies vomiting Denies urinary frequency, Denies dysuria and Denies urinary urgency Neuro Reports Normal hearing present, Denies confusion and Denies syncope Psych Denies confusion Endo Denies fatigue Physical exam (Primary Care) Vital Signs: Last Vital Signs Pulse 93 04/05/23 13:14 BP 100/64 04/05/23 13:14 Pulse Ox 9 L 04/05/23 13:14 Oxygen Delivery Method Room Air 04/05/23 13:14 BMI result Body Mass Index 37.9 Tobacco/Smoking Status: Tobacco use Status Tobacco use date assessed 04/05/23 04/05/23 13:24 Patient Tobacco Use Status Never used Tobacco 04/05/23 13:31 e-Cigarette/Vaping Use Never Used 04/05/23 13:31 PHQ-9: PHQ-9 Score PHQ-9: Total score 0 04/05/23 13:41 Depression Screening Interpretation: Negative Thrive Assessment: Date of Thrive Assessment Date Thrive assessed 04/05/23 04/05/23 13:24 Currently or been in a relationship where the following occur: no concerns reported Const General: No confusion Orientation/consciousness: No confusion HENMT Head: Yes normocephalic and Yes atraumatic Ears: external ears normal and TM's normal bilaterally General nose exam: Normal external nose present and Normal nasal mucous membranes and turbinates present Face and sinus: Yes normal facial exam and Yes sinuses nontender Mouth: moist mucous membranes Throat: Yes tonsils normal Eyes Conjunctivae: conjunctivae normal Sclerae: sclerae normal Pupils: Equal, round and reactive pupils present and Pupils normal by confrontation EOM: EOMs intact bilaterally Direct Ophthalmoscopy: normal light reflex Neck Neck: Yes no lymphadenopathy and Yes supple Thyroid: Thyroid normal Chest Chest palpation & inspection: normal inspection of the chest Resp Effort & Inspection: normal respiratory effort Auscultation: clear to auscultation bilaterally, no crackles, no rhonchi and no wheezes Cardio Rate: regular rate Rhythm: regular rhythm Peripheral pulses: radial pulses present and dorsalis pedis present GI Inspection: Yes normal to inspection Palpation (GI): Soft to palpation, nontender and No hepatosplenomegaly present Auscultation: normoactive bowel sounds Skin General skin exam: no rashes or lesions noted Neuro General: No confusion Cranial nerves: Yes Equal, round and reactive pupils present and Yes Normal hearing present Cognition (Neuro): normal cognition Gait exam (Neuro): Normal gait present Motor exam (neuro): 5/5 motor strength present throughout Deep tendon reflexes (DTR's): Right brachioradialis reflex intensity grade: 2+, Left brachioradialis reflex intensity grade: 2+, Right patellar reflex intensity grade: 2+ and Left patellar reflex intensity grade: 2+ Extrem General: No edema Assessment and Plan Assessment & Plan (1) RIDDHI I (cervical intraepithelial neoplasia I): Comment: Persistent status post LEEP cone with post cone ECC Code(s): N87.0 - Mild cervical dysplasia Plan: Continue to follow with OBGYN (2) Physical exam, annual: Code(s): Z00.00 - Encounter for general adult medical examination without abnormal findings Plan: Follow up in 1 year. Fasting labs ordered. Plan Follow up in 2 weeks for ER follow up. Orders: Orders Comprehensive [place]. Panel Fast Today Z13.1 - Encounter for screening for diabetes mellitus Lipid Panel Today Z13.220 - Encounter for screening for lipoid disorders TSH reflex Free T4 Today Z13.29 - Encounter for screening for other suspected endocrine disorder Complete Blood Count Auto Diff Today Z13.0 - Encounter for screening for diseases of the blood and blood-forming organs and certain disorders involving the immune mechanism MM screening mammo BI Today Z12.31 - Encounter for screening mammogram for malignant neoplasm of breast Coding Level of Care Code New Pt Prev Care 40-64y(42160) Diagnoses RIDDHI I (cervical intraepithelial neoplasia I) N87.0 Physical exam, annual Z00.00 Additional Codes REJI-7 Assessment Billing - REJI-7 Assessment Tool: REJI-7 Assessment 38706 ([id number])
[2023-04-05 13:14] VITALS: BP 100/64; PULSE 93; O2SAT 9; BMI 37.9
== END 2023-04-05 13:45 | disposition home or self-care (01) ==
PROVIDERS: PCP Nurse Practitioner Family; Visit Provider Nurse Practitioner Family
DX: N87.0 Mild cervical dysplasia (principal); Z00.00 Encounter for general adult medical examination without abnormal findings
CPT/HCPCS: 99386

== ENCOUNTER 2023-04-07 15:50 | Outpatient (AMB) | payer BC, MEDICAID, SELFPAY ==
[2023-04-07 16:02] VITALS: BP 112/72; BMI 38.2
--- NOTE | 2023-04-07 16:02 | A.OFFVIS_ITS ---
Intake Vital Signs 04/07/23 16:02 Height 4 ft 10 in Weight 183 lb BMI 38.2 BP 112/72 Intake Visit Reasons: Med review/30 min Intake Note: The patient agreed to use of a medical laboratory technical officer during this encounter. Scribed for SHOAIB Vasquez by Merry New medical laboratory technical officer, on 04/07/2023. Police Investigator Required: Yes Police Investigator Language: Head Of Mobile Name: Nathan [id number] Allergies No Known Allergies [No Known Allergies*] Allergy (Verified 04/07/23 16:03) Is last menstrual period known: No (depo) Post menopausal: No HPI HPI Comments History of Present Illness Details She is presenting for Depo medication review who is over due for care. Currently sexually active. Last pap/annual 11/10/21. Never had a mammogram. She denies any contraindications to control such as: migraines with aura, history of DVT or pulmonary emboli, high blood pressure, liver disease, thrombolic disorders, Lupus, +ARIAN, or smoking. PFSH Surgical History Hx of appendectomy Hx of cholecystectomy Family History Mother Liver cancer Social History Household Members Other:: daughter Housing: House Are you a primary home care nurse to a significant other at home: No Do you presently have visiting nurse or other home services: No Alcohol intake: current Alcohol intake frequency: holidays/special occasions only Patient Tobacco Use Status: Never used Tobacco e-Cigarette/Vaping Use: Never Used service: No Current occupational status: employed Current occupation: [employer] Gender identity: Female Cognitive needs: No Hearing needs: No Vision needs: No Female Reproductive History Menstrual Age of Menarche: 12 control method: progesterone injection Date of last pap smear: 11/10/21 (ASCUS +HPV) History of abnormal pap smear: Yes Physical Exam Vital Signs: Last Vital Signs BP 112/72 04/07/23 16:02 BMI result Body Mass Index 38.2 Const General: cooperative, healthy appearing, comfortable, no acute distress, well developed, alert and awake Other: Assessment & Plan Assessment & Plan (1) control counseling: Code(s): Z30.09 - Encounter for other general counseling and advice on contraception Plan: Discussed: Reviewed use, side effects incl: low bone density, and warnings of Depo Provera. Use of Depo and potential relationship with breast cancer development, and concerns if cancer is hormonal-reactive it can grow aggressively, and the cancer can spread to other organs being difficult to treat and life threatening. Importance of regular mammogram reviewed. Mammogram ordered per PCP-not booked. Our staff to facilitate the booking of this for her today. Breast awareness and periodic self breast exams. Discussed the importance of breast health and surveillance while using Depo. After mammogram results are reviewed, reorder Depo. Use of condoms- and length of time needed for BUM-now and for 7 days after Depo is given. Advised to stop Depo before menopause due to effects to bones. Advised calcium and Vit D along with weight bearing exercise. With Depo use: she was instructed to go to ER if she develops loss of vision, severe headache that does not resolve, chest pain, difficulty breathing, abdominal pain, or pain or tenderness in extremity or new breast lumps. Call the office with any concerns. All of her questions and concerns were addressed to the best of my ability and shared decision making. She is agreeable to plan of care. (2) Surveillance for Depo-Provera contraception: Code(s): Z30.42 - Encounter for surveillance of injectable contraceptive Coding Level of Care Code Est Pt Level 3 (86843) Diagnoses control counseling Z30. Surveillance for Depo-Provera contraception Z30.42
== END 2023-04-07 16:28 | disposition home or self-care (01) ==
PROVIDERS: PCP Nurse Practitioner Family; Visit Provider Advanced Practice Midwife
DX: Z30.09 Encounter for other general counseling and advice on contraception (principal); Z30.42 Encounter for surveillance of injectable contraceptive
CPT/HCPCS: 99213

== ENCOUNTER → 2023-04-07 15:50 | Outpatient (BNVA) | payer BC, MEDICAID, SELFPAY | PROVIDERS: PCP Nurse Practitioner Family; Visit Provider Advanced Practice Midwife ==

== ENCOUNTER 2023-04-19 07:57 | Outpatient (AMB) | payer BC, MEDICAID, SELFPAY ==
[2023-04-19 08:14] VITALS: BP 114/78; PULSE 103; O2SAT 98; BMI 37.8
--- NOTE | 2023-04-19 08:14 | A.OFFPC_ITS ---
Vital Signs 04/19/23 08:14 Height 4 ft 10 in Weight 181 lb BMI 37.8 BP 114/78 Blood Pressure Location Lt brachial Position Sitting Pulse 103 H Pulse Source Pulse Oximeter Pulse Oximetry (%) 98 Oxygen Delivery Method Room Air Intake Visit Reasons: ER follow up Oil Well Directional Surveyor Required: Yes Oil Well Directional Surveyor Name: [id number] Information Interpreted: non-clinical & clinical Allergies No Known Allergies [No Known Allergies*] Allergy (Verified 04/19/23 08:29) Medication List - Last Reconciled 04/19/23 by ANTOINE Calvillo No Known Home Meds Tobacco use date assessed: 04/05/23 Dental Screening Dental Screen Date: 04/19/23 Did you have a dental visit in the last 12 months?: Yes Did you have a dental problem in the last 6 months where you did not have access to dental care?: No Was dental information given to patient?: Patient has dentist HPI HPI Comments History of Present Illness Details 32-year-old female past medical history significant for RIDDHI 1. Patient presents today for ER follow up. Patient presented to [facility] Emergency Room for left-sided headache and left ear pain with tingling on left forearm. Patient also reported forearm rash related to poison nolan that she gets every year. CT head negative. Symptoms most consistent with Harvey's palsy patient was treated with prednisone, and doxycycline while to panel was pending and valacyclovir. Lyme workup negative. EKG NSR. Patient reports symptoms have resolved completely.CN 2-12 intact in office. Patient reports has completed all her prescribed medications. [facility] Medical History (Updated 04/19/23 @ 08:41 by ANTOINE Calvillo) Facial paralysis/Saint Johns palsy Surgical History Hx of cholecystectomy Hx of appendectomy Family History (Updated 04/19/23 @ 08:15 by Vianey Mancera CMA) Mother Liver cancer Social History Household Members Other:: daughter Housing: House Are you a primary home care manager to a significant other at home: No Do you presently have visiting nurse or other home services: No Alcohol intake: current Alcohol intake frequency: holidays/special occasions only Patient Tobacco Use Status: Never used Tobacco e-Cigarette/Vaping Use: Never Used service: No Current occupational status: employed Current occupation: [employer] Gender identity: Female Cognitive needs: No Hearing needs: No Vision needs: No Female Reproductive History Menstrual Age of Menarche: 12 Questionnaire PHQ-9 Over the last 2 weeks, how often have you been bothered by any of the following problems? 1. Little interest or pleasure in doing things: not at all 2. Feeling down, depressed, or hopeless: not at all 3. Trouble falling or staying asleep, or sleeping too much: not at all 4. Feeling tired or having little energy: not at all 5. Poor appetite or overeating: not at all 6. Feeling bad about yourself - or that you are a failure or have let yourself or your family down: not at all 7. Trouble concentrating on things, such as reading the newspaper or watching television: not at all 8. Moving or speaking so slowly that other people could have noticed. Or the opposite - being so fidgety or restless that you have been moving around a lot more than usual: not at all 9. Thoughts that you would be better off or of hurting yourself in some way: not at all Total score: 0 Depression Screening Interpretation: Negative 63005 - PHQ-9 Billing: Yes Source: Developed by Drs. Juan Lomeli, Oziel Hinson and colleagues, with an educational gadiel from [employer]. Thrive Questionnaire Date Thrive assessed: 04/05/23 AUDIT C Alcohol Use Questionnaire (AUDIT-C) 1. How often do you have a drink containing alcohol?: Monthly or less 2. How many drinks containing alcohol do you have on a typical day when you are drinking?: 1 or 2 3. How often do you have six or more drinks on one occasion?: Never Total Score: 1 REJI-7 AMB Questionnaire REJI-7 Date REJI - 7 assessed: 04/05/23 Source: Developed by Drs. Juan Lomeli, Oziel Hinson and colleagues, with an educational gadiel from [employer]. Review of Systems Const Denies chills, Denies fatigue, Denies fever(s) and Denies poor appetite Eyes Denies no additional complaints ENT Reports Normal hearing present Card Denies chest pain, Denies syncope, Denies rapid heart rate and Denies dyspnea Resp Denies cough and Denies dyspnea GI Denies change in stool character, Denies constipation, Denies diarrhea, Denies nausea and Denies vomiting Denies urinary frequency, Denies dysuria and Denies urinary urgency Neuro Reports Normal hearing present, Denies confusion and Denies syncope Psych Denies confusion Endo Denies fatigue Physical exam (Primary Care) Vital Signs: Last Vital Signs Pulse 103 H 04/19/23 08:14 BP 114/78 04/19/23 08:14 Pulse Ox 98 04/19/23 08:14 Oxygen Delivery Method Room Air 04/19/23 08:14 BMI result Body Mass Index 37.8 Tobacco/Smoking Status: Tobacco use Status Tobacco use date assessed 04/05/23 04/19/23 08:20 Patient Tobacco Use Status Never used Tobacco 04/19/23 08:20 e-Cigarette/Vaping Use Never Used 04/19/23 08:20 PHQ-9: PHQ-9 Score PHQ-9: Total score 0 04/19/23 08:20 Depression Screening Interpretation: Negative Thrive Assessment: Date of Thrive Assessment Date Thrive assessed 04/05/23 04/19/23 08:20 Const General: No confusion Orientation/consciousness: No confusion HENMT Head: Yes normocephalic and Yes atraumatic Eyes Conjunctivae: conjunctivae normal Sclerae: sclerae normal Pupils: Equal, round and reactive pupils present and Pupils normal by confrontation EOM: EOMs intact bilaterally Direct Ophthalmoscopy: normal light reflex Chest Chest palpation & inspection: normal inspection of the chest Resp Effort & Inspection: normal respiratory effort Auscultation: clear to auscultation bilaterally, no crackles, no rhonchi and no wheezes Cardio Rate: regular rate Rhythm: regular rhythm Heart sounds: S1 normal heart sound present and S2 normal heart sound present GI Inspection: Yes normal to inspection Neuro General: No confusion Cranial nerves: Yes CN's II-XII intact bilaterally, Yes Equal, round and reactive pupils present and Yes Normal hearing present Cognition (Neuro): normal cognition Gait exam (Neuro): Normal gait present Motor exam (neuro): 5/5 motor strength present throughout Deep tendon reflexes (DTR's): Right brachioradialis reflex intensity grade: 2+, Left brachioradialis reflex intensity grade: 2+, Right patellar reflex intensity grade: 2+ and Left patellar reflex intensity grade: 2+ Extrem General: No edema Assessment and Plan Assessment & Plan (1) 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 Patient was also covered with valcylovir. Symptoms Resolved, CN 2-12 intact. Plan Keeps scheduled physical exam or follow up sooner if needed. Coding Level of Care Code Est Pt Level 3 (71512) Diagnoses Facial paralysis/Saint Johns palsy G51.0
== END 2023-04-19 09:03 | disposition home or self-care (01) ==
PROVIDERS: PCP Nurse Practitioner Family; Visit Provider Nurse Practitioner Family
DX: G51.0 Bell's palsy (principal)
CPT/HCPCS: 99213

== ENCOUNTER 2023-04-29 16:18 | Outpatient (REF) | payer BC, MEDICAID, SELFPAY ==
--- NOTE | ~2023-04-29 | MM_ITS ---
EXAMINATION: MM SCREENING DIGITAL BREAST TOMOSYNTHESIS, BILATERAL CLINICAL INFORMATION: Screening. Asymptomatic. COMPARISON: Mammography: This is a baseline study. TECHNIQUE: Digital breast tomosynthesis is performed in both the craniocaudal and mediolateral oblique views along with computer-aided detection (CAD). Synthesized 2D images are generated from the tomosynthesis. FINDINGS: There are scattered areas of fibroglandular density (ACR BI-RADS breast composition Category b). There are no significant masses, abnormal calcifications, or other abnormalities. MM/MM tomosynthesis screening BI IMPRESSION: No mammographic evidence of malignancy. ASSESSMENT: BI-RADS BI-RADS 1 - Negative RECOMMENDATION: Routine annual mammography screening. 1 year F/U This examination should not preclude the clinical evaluation of a suspicious palpable abnormality. This patient's information was entered into a reminder system with a target due date for their next mammogram.
== END 2023-04-29 16:19 | disposition home or self-care (01) ==
LOC: HO.MAMMO 16:18
PROVIDERS: PCP Nurse Practitioner Family; Visit Provider Nurse Practitioner Family
DX: Z12.31 Encounter for screening mammogram for malignant neoplasm of breast (principal)
CPT/HCPCS: 77063; 77067

== ENCOUNTER → 2023-04-29 16:30 | Outpatient (BNV) | payer BC, MEDICAID, SELFPAY | PROVIDERS: PCP Nurse Practitioner Family; Visit Provider Radiology Diagnostic Radiology | DX: Z12.31 Encounter for screening mammogram for malignant neoplasm of breast (principal) | CPT/HCPCS: 77063; 77067 ==

== ENCOUNTER 2023-05-08 04:12 | Emergency (ER) | payer BC, MEDICAID, SELFPAY ==
[2023-05-08 04:28] VITALS: BP 133/79; PULSE 129; RESP 20; TEMP 37.9; O2SAT 97; BMI 68.6
[2023-05-08] MEDS: Ondansetron ODT 4 MG TAB.RAPDIS TRANSLINGU (04:49)
[2023-05-08 05:07] LABS: COVID-19 Test Negative (Negative); IDNOW Serial# BCCEAD1C
--- NOTE | 2023-05-08 05:20 | ED_ITS ---
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 She ate at the buffet a with her son who is also being evaluated here today but did not eat the same food items but he has similar symptoms. 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 Surgical History Hx of cholecystectomy Hx of appendectomy Family History Family History Mother Liver cancer Social History Social History Household Members Other:: daughter Housing: House Are you a primary child care worker to a significant other at home: No Do you presently have visiting nurse or other home services: No Alcohol intake: current Alcohol intake frequency: holidays/special occasions only Patient Tobacco Use Status: Never used Tobacco Smoked in Last 30 Days: No e-Cigarette/Vaping Use: Never Used Use of substances other than those prescribed or required for medical reasons: No Advance Directives: No Advance Directives Information Provided: Yes Patient : No service: No Current occupational status: employed Current occupation: [employer] Gender identity: Female Cognitive needs: No Hearing needs: No Vision needs: No Physical Exam Vital Signs: Vital Signs: Last Vital Signs Temp 100.2 F 05/08/23 04:28 Pulse 129 H 05/08/23 04:28 Resp 20 05/08/23 04:28 BP 133/79 05/08/23 04:28 Pulse Ox 97 05/08/23 04:28 O2 Del Method Room Air 05/08/23 04:28 BMI result Body Mass Index 68.6 VITAL SIGNS: Reviewed. GENERAL: Well developed, well nourished, in no acute distress. HEAD: Normocephalic/atraumatic EYES: PERRLA, EOMI EARS: Ext canals without abnormality, TMs non-bulging and non-erythematous NOSE: Nares patent bilateral OROPHARYNX: no oral lesions noted, posterior pharynx clear and non-erythematous without noted tonsillar enlargement/erythema/exudates NECK: Supple, no adenopathy LUNGS: Normal breath sounds. No adventitious sounds or accessory muscle use. SpO2<97> CARDIOVASCULAR: Regular rate and rhythm without noted murmurs ABDOMEN: Soft, non-tender, non-distended with bowel sounds. MUSCULOSKELETAL: No tenderness, deformities, or effusions noted on gross inspection. EXTREMITIES: No cyanosis, clubbing or edema. SKIN: Inspection of the skin reveals no rashes NEUROLOGIC: Alert and oriented x 4. Strength and sensation to light touch were grossly intact x 4. Medications Administered Discontinued Medications Generic Name Dose Route Start Last Admin Trade Name Freq PRN Reason Stop Dose Admin Ondansetron HCl 4 mg 05/08/23 04:30 05/08/23 04:49 Ondansetron Odt 4 Mg Tab.Rapdis TRANSLINGU 05/08/23 04:31 4 mg ONCE ONE Administration Medical Decision Making Medical Decision Making [facility] Narrative: 42-year-old female with history and clinical presentation, DDX: Food poison, viral gastroenteritis, COVID-19, urinalysis, . COVID-19 testing is negative, patient received Zofran for the nausea and vomiting and on re-evaluation was able to tolerate oral intake. Urinalysis is negative for UTI and urine is negative. Differential Diagnosis Differential Diagnoses: The differential diagnosis associated with the presentation includes Please see the discussion above Lab Data [facility] Lab Attestation statement: I reviewed the patient's lab results. Please see the discussion above Labs: Lab Results 05/08/23 05/08/23 Range/Units 04:45 05:19 Urine Color Dark Yellow Urine Appearance Cloudy Urine pH 6.0 (5.0-9.0) Ur Specific [place] 1.025 (1.005-1.025) Urine Protein 100 (2+) H (Neg-Trace) mg/dL Urine Glucose (UA) Negative (Negative) mg/dL Urine Ketones 40 (Negative) mg/dL Urine Blood Moderate (2+) H (Negative) Urine Nitrite Negative (Negative) Ur Leukocyte Esterase Trace H (Negative) Urine Test NEGATIVE (NEGATIVE) COVID-19 (LAURYN) Negative (Negative) COVID-19 Clin Com See Note Discharge Plan Discharge Clinical Impression: Viral gastroenteritis Patient Disposition: Home, Self-Care Instructions: Gastroenteritis (ED), Nutrition Tips for Relief of Diarrhea (ED) Additional Instructions: 1. Recomiende Tylenol/ibuprofeno de venta rekha seg?n sea necesario para los yarelis corporales y temperaturas superiores a 100,4. Siga bebiendo tanta agua eric sea posible. 2. Est? recibiendo stacie receta para prevenir las n?useas. 3. Recomiendo volver a hacerse la prueba de COVID-19 el oumar por la noche. Regrese a la mateo de emergencias si los s?ntomas empeoran. 1. Recommend [id number] Tylenol/ibuprofen as needed for body aches, temperatures greater than 100.4 continue to drink as much water as possible. 2. You are receiving a prescription to prevent nausea. 3. I recommend retesting for COVID-19 on Wednesday evening. Return to the ER for any worsening symptoms. Prescriptions: New ondansetron 4 mg tablet,disintegrating 4 mg PO Q8H PRN (Reason: nausea and vomiting) Qty: 10 0RF Referrals: Marly Dan FNP [Primary Care Provider] - Print Language: Norwegian
--- NOTE | 2023-05-08 05:20 | PC.NURSE ---
Pt A&Ox4, reports 9/10 intermittent ABD pain x yesterday with N/V and dizziness. Pt reports last BM was last night normal for self. Pt ambulated to BR independently with steady gait. Urine collected and sent to lab.
[2023-05-08 05:27] LABS: UPreg QC Valid YES; Urine Pregnancy NEGATIVE (NEGATIVE)
[2023-05-08 05:29] LABS: Appearance Urine Cloudy; Color Urine Dark Yellow; Glucose Urine UA Negative (Negative); Leukocyte Esterase Urine Trace (Negative); Nitrite Urine Negative (Negative); Specific Gravity - Urine 1.025 (1.005-1.025); UMIC TRIGGER UACC YES; Urine Blood Moderate (2+) (Negative); Urine Ketones 40 mg/dL (Negative); Urine Protein 100 (2+) mg/dL (Neg-Trace)
--- NOTE | 2023-05-08 05:38 | PC.NURSE ---
PO fluids given with saltine crackers, Pt tolerated well.
[2023-05-08 05:40] LABS: Bacteria Urine Trace (None Seen); Granular Casts Urine Present; Hyaline Casts Urine >20 /LPF (0-2); RBC Urine >20 /HPF (0-2); WBC Urine 0-5 /HPF (0-5)
== END 2023-05-08 05:44 | disposition home or self-care (01) ==
PROVIDERS: Emergency Provider Student in an Organized Health Care Education/Training Program; PCP Nurse Practitioner Family
DX: K52.9 Noninfective gastroenteritis and colitis, unspecified (principal); R11.2 Nausea with vomiting, unspecified; Z20.822 Contact with and (suspected) exposure to COVID-19
CPT/HCPCS: 81001; 81025; 87635; 99283; 99284

== ENCOUNTER 2023-05-12 15:12 | Outpatient (AMB) | payer BC, MEDICAID, SELFPAY ==
[2023-05-12 15:26] VITALS: BMI 44.9
--- NOTE | 2023-05-12 15:26 | AM.OFFVISNUR ---
Intake Vital Signs 05/12/23 15:26 Height 4 ft 6 in Weight 84.425 kg BMI 44.9 Intake Visit Reasons: DEPO Allergies No Known Allergies [No Known Allergies*] Allergy (Verified 05/08/23 05:30) Nursing Note Noemi is here for her DEpo-Provera inj. last inj 01/10/23. Pt denies any unprotected IC and salazar d a negative test in office today. INJ was ok'd by ERICKA Leal. Pt aware to use Back up method x 7 days. Return in 12 weeks for next inj. Office Procedures Depo Questionnaire If YES to any of the following questions, please consult a provider. Date of last injection: 01/11/23 Date of last gynecology exam: 11/09/22 Menstrual pattern since last injection has been: Not Applicable test in office results: Negative Irregular bleeding?: No Breast lumps or other breast changes?: No Changes in weight or appetite?: No Depression or changes in mood?: No Abnormal hair growth or loss?: No Skin problems (rash, acne, discoloration)?: No Pain at the injection site?: No Headaches?: No Nervousness?: No Abdominal pain or cramping?: No Dizziness or nausea?: No Fatigue or weakness?: No Decrease in sexual drive?: No Chest pain or shortness of breath?: No Swelling in arms or legs?: No Form completed by?: Giuseppe Cramer LPN Office Meds Depo-Provera 150 mg/mL intramuscular syringe Performing Provider: Tammie Leal CNM Performing Location: [facility] Administered by: Paty Cramer LPN on 05/12/23 15:31 Dose Route Admin Location Dispensed Lot Number Expiration Date [facility] Managed Services Consultant 150 mg IM Lt. deltoid 1 mL [id number] 06/08/25 48073-947-22 [facility] Results AMB Test Urine AMB Test Urine Negative Last Edit by Paty Cramer LPN on 05/12/23 15:36 Coding Level of Care Code Established Pt Est Pt Level 1 (09885) Patient Type Established History Problem Focused Exam Problem Focused Medical Decision Making Straight Forward Time Spent (min) 20 Assessment & Plan Assessment & Plan Orders: Orders AMB Medroxyprogesterone Injection Patient Supplied Today Z30.42 - Encounter for surveillance of injectable contraceptive
== END 2023-05-12 15:25 | disposition home or self-care (01) ==
LOC: HO.HWS 15:12
PROVIDERS: PCP Nurse Practitioner Family; Visit Provider Advanced Practice Midwife
DX: Z30.42 Encounter for surveillance of injectable contraceptive (principal)

== ENCOUNTER → 2023-05-12 15:12 | Outpatient (BNVA) | payer BC, MEDICAID, SELFPAY | PROVIDERS: PCP Nurse Practitioner Family; Visit Provider Advanced Practice Midwife | DX: Z30.42 Encounter for surveillance of injectable contraceptive (principal) | CPT/HCPCS: 96372; 99211; J1050 ==

== ENCOUNTER 2023-08-10 15:03 | Outpatient (AMB) | payer BC, MEDICAID, SELFPAY ==
[2023-08-10 15:19] VITALS: BMI 43.2
--- NOTE | 2023-08-10 15:19 | AM.OFFVISNUR ---
Intake Vital Signs 08/10/23 15:19 Height 4 ft 6 in Weight 81.363 kg BMI 43.2 Intake Visit Reasons: DEPO Allergies No Known Allergies [No Known Allergies*] Allergy (Verified 05/08/23 05:30) Nursing Note Sravanthi is here today for her scheduled Depo-Provera inj, with medication in sealed bag. Pt denied any problems. Reminded of AG on 08/30/23@14:30. Pt verbs understanding. Office Procedures Depo Questionnaire If YES to any of the following questions, please consult a provider. Date of last injection: 05/12/23 Date of last gynecology exam: 11/07/21 Menstrual pattern since last injection has been: Not Applicable Irregular bleeding?: No Breast lumps or other breast changes?: No Changes in weight or appetite?: No Depression or changes in mood?: No Abnormal hair growth or loss?: No Skin problems (rash, acne, discoloration)?: No Pain at the injection site?: No Headaches?: No Nervousness?: No Abdominal pain or cramping?: No Dizziness or nausea?: No Fatigue or weakness?: No Decrease in sexual drive?: No Chest pain or shortness of breath?: No Swelling in arms or legs?: No Form completed by?: Giuseppe Cramer LPN Office Meds Depo-Provera 150 mg/mL intramuscular syringe Performing Provider: Tammie Leal CNM Performing Location: [facility] Administered by: Paty Cramer LPN on 08/10/23 15:20 Dose Route Admin Location Dispensed Lot Number Expiration Date [facility] Facilities Mechanical Design Engineer 150 mg IM rt. deltoid 1 mL [id number] 09/07/25 43864-842-89 [facility] Coding Level of Care Code Established Pt Est Pt Level 1 (47804) Patient Type Established History Problem Focused Exam Problem Focused Medical Decision Making Straight Forward Time Spent (min) 15 Assessment & Plan Assessment & Plan Orders: Orders AMB Medroxyprogesterone Injection Patient Supplied Today Z30.42 - Encounter for surveillance of injectable contraceptive
== END 2023-08-10 15:17 | disposition home or self-care (01) ==
LOC: HO.HWS 15:03
PROVIDERS: PCP Nurse Practitioner Family; Visit Provider Advanced Practice Midwife
DX: Z30.42 Encounter for surveillance of injectable contraceptive (principal)

== ENCOUNTER → 2023-08-10 15:03 | Outpatient (BNVA) | payer BC, MEDICAID, SELFPAY | PROVIDERS: PCP Nurse Practitioner Family; Visit Provider Advanced Practice Midwife | DX: Z30.42 Encounter for surveillance of injectable contraceptive (principal) | CPT/HCPCS: 96372; 99211; J1050 ==

== ENCOUNTER 2023-08-30 14:23 | Outpatient (REF) | payer BC, MEDICAID, SELFPAY ==
[2023-08-31 02:17] LABS: CT PCR NOT DETECTED (Not Detect.); NG PCR NOT DETECTED (Not Detect.)
[2023-08-31 12:31] LABS: BV Int Neg Control Negative (Negative); BV Int Pos Control Positive (Positive)
[2023-09-03 06:06] LABS: HPV mRNA E6/E7 rflx Not Detected (Not Detected)
== END 2023-08-30 14:24 | disposition home or self-care (01) ==
LOC: HO.LNP 14:23
PROVIDERS: PCP Nurse Practitioner Family; Visit Provider Advanced Practice Midwife
DX: Z01.419 Encounter for gynecological examination (general) (routine) without abnormal findings (principal); Z11.51 Encounter for screening for human papillomavirus (HPV); N87.0 Mild cervical dysplasia; Z20.2 Contact with and (suspected) exposure to infections with a predominantly sexual mode of transmission
CPT/HCPCS: 0353U; 87480; 87510; 87624; 87660; 88142

== ENCOUNTER 2023-08-30 14:23 | Outpatient (AMB) | payer BC, MEDICAID, SELFPAY ==
[2023-08-30 14:33] VITALS: BP 126/80; BMI 35.9
--- NOTE | 2023-08-30 14:33 | MHC.OFFVIS ---
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 She has not having any complaints or anything she is on Depo-Provera and has been so for a couple of years now. She likes it she does think she has gained a little weight with it and also with the Nexplanon she had before but overall she likes it very much and I did discuss with her the possibility of changing and not staying on it for very long period of time because of the concern that it could contribute to non buildup of bone. However she wants to stay on it and she promised she would think about switching in the next year so. She says her next Depo shot is due in October and she gets it up the hospital with the RNs. She has a history of abnormal Pap smears and she had a LEEP in 2021. She has not really worried about STIs but accepts cultures with the exam but declined blood work. 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 Surgical History Hx of cholecystectomy Hx of appendectomy Family History Mother Liver cancer Social History Household Members Other:: daughter Housing: House Are you a primary assurance services manager health care to a significant other at home: No Do you presently have visiting nurse or other home services: No Alcohol intake: current Alcohol intake frequency: holidays/special occasions only Patient Tobacco Use Status: Never used Tobacco e-Cigarette/Vaping Use: Never Used service: No Current occupational status: employed 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 Gender identity: Female Cognitive needs: No Hearing needs: No Vision needs: No Female Reproductive History Menstrual Age of Menarche: 12 Duration of menses: 3-5 days control method: progesterone injection Total pregnancies: 5 Full term: 4 Number of Living Children: 4 Date of last pap smear: 11/10/21 (ASCUS +HPV) History of abnormal pap smear: Yes (2020 ASCUS +HPV, 2014 RIDDHI 1) Date of Mammogram: 04/29/23 Physical Exam Vital Signs: Last Vital Signs BP 126/80 08/30/23 14:33 BMI result Body Mass Index 35.9 Const General: healthy appearing, comfortable, no acute distress, well developed and alert Nutritional Appearance: average body habitus Orientation/consciousness: patient oriented x3 Limitations: no limitations HEENT Head: Yes normocephalic Neck Neck: Yes normal visual inspection Chest Chest palpation & inspection: normal inspection of the chest Breast/axilla inspection: normal inspection of the breasts and normal inspection of the axillae Breast/axilla palpation: normal palpation of the breasts and normal palpation of the axillae Resp Effort & Inspection: normal respiratory effort GI Inspection: Yes normal to inspection, No Abdominal wall edema and No distended Palpation (GI): Soft to palpation and nontender Other: External exam has no lesions tiny cut at vaginal introitus/mucosa patient says she Vagina pink and moist cervix multiparous with appearance of status post LEEP very well healed. Cervix feels short is mobile nontender unable to palpate uterus completely secondary to adipose adnexa nontender patient has somewhat weak tone with Kegel encouraged to do Kegel exercises that she was able to reproduce, several times a day up to a count of 5 or 10 per Kegel. General: Yes bladder normal to palpation External Female Exam: normal external appearance and normal appearance of the urethra Speculum Exam - Vagina: normal appearance of the vagina, normal palpation and normal vaginal discharge Speculum Exam - Cervix: normal appearance of the cervix, normal palpation and nontender Bimanual exam- vagina & uterus: normal bimanual exam, normal palpation, uterine size normal, bladder normal to palpation, consistency normal, normal palpation, uterine mobility normal, uterine shape normal, No Cervical tenderness present, non-tender and no cervical motion tenderness Bimanual Exam- Adnexa, other: normal adnexae, no masses, normal and No adnexal tenderness Neuro General: patient oriented x3 Results Reviewed Results Reviewed: Patient: Sravanthi Holliday MR#: [id number] : 1980 Acct:[id number] Age/Sex: 42 / F ADM Date: 04/29/23 Loc: [facility] Attending Dr: Marly SCHULTZ Ordering Physician: Marly Dan Results: 1Negative Date of Service: 04/29/23 Follow Up: 1 Year From Original Mammogram Procedure(s): MM tomosynthesis screening BI Accession Number(s): [id number] cc: Marly Dan~ EXAMINATION: MM SCREENING DIGITAL BREAST TOMOSYNTHESIS, BILATERAL CLINICAL INFORMATION: Screening. Asymptomatic. COMPARISON: Mammography: This is a baseline study. TECHNIQUE: Digital breast tomosynthesis is performed in both the craniocaudal and mediolateral oblique views along with computer-aided detection (CAD). Synthesized 2D images are generated from the tomosynthesis. FINDINGS: There are scattered areas of fibroglandular density (ACR BI-RADS breast composition Category b). There are no significant masses, abnormal calcifications, or other abnormalities. MM/MM tomosynthesis screening BI IMPRESSION: No mammographic evidence of malignancy. ASSESSMENT: BI-RADS BI-RADS 1 - Negative RECOMMENDATION: Routine annual mammography screening. 1 year F/U This examination should not preclude the clinical evaluation of a suspicious palpable abnormality. This patient's information was entered into a reminder system with a target due date for their next mammogram. Dictated By: Leigh Ann Gottlieb MD Signed By: <Electronically signed by Leigh Ann Gottlieb MD in OV> 05/09/23 2239 DD/ 1645 Name: Sravanthi Christie Age/Sex: 41/F Attending: Seth Pagan MD : 1980 Submitted by: Seth Pagan MD Copies to: MR #: [id number] Status: DEP REF Collected: 02/17/22 Location: [facility] Received: 02/18/22 Diagnosis A. Endocervix, curettage: No tissue present. B. Cervix, 4 o'clock, biopsy: - Mildly inflamed squamous mucosa with reactive changes. - No endocervical epithelium identified. C. Cervix, 7 o'clock, biopsy: - Low-grade squamous intraepithelial lesion (RIDDHI 1). - Endocervical epithelium within normal limits. D. Cervix, 12 o'clock, biopsy: - Low-grade squamous intraepithelial lesion (RIDDHI 1). - Endocervical epithelium within normal limits. COMMENT: The findings are concordant with the patient's recent Pap/cytology specimen ([id number]; ASCUS with positive HPV) - slide reviewed. Clinical History ASCUS with positive risk of HPV Microscopic Description A-D. Microscopic sections reviewed. Immunostains for p16 and Ki-67 support the diagnosis in C. Material Received A: Ecc B: Cx bx at 4 o'clock C: Cx bx at 7 o'clock D: Cx bx at 12 o'clock Gross Description Received in four parts. Part A: Received in formalin labeled ECC are less than 5 cc. of jauregui formalin. Following filtration, no blood, mucus or tissue is retained. Gross description only. Part B: Received in formalin labeled Cx bx 4 o'clock is a 0.6 cm. in greatest dimension, glistening, semitranslucent, rubbery, white-jauregui, wedge-shaped fragment of mucosa, which is submitted in toto in a Patient: Sravanthi Christie Age/Sex: 41/F MR#: [id number] Page 1 of 2 Name: Sravanthi Christie Age/Sex: 41/F Attending: Seth Pagan MD : 1980 Submitted by: Seth Pagan MD Copies to: MR #: [id number] Status: [facility] Collected: 07/10/22 Location: [facility] Received: 07/10/22 Diagnosis A. Cervix, cone excision: - Low-grade squamous intraepithelial lesion (RIDDHI 1). - No endocervical epithelium identified. B. Cervix, top hat, excision: - Low-grade squamous intraepithelial lesion (RIDDHI 1). - Background inflamed cervical transformation zone mucosa. C. Endocervix, post-cone curettage: Superficial strips of endocervical epithelium within normal limits. 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 Microscopic sections reviewed. Material Received A: Cervical cone B: Top hat C: Post cone ECC Gross Description Received in three parts. Part A: Received in formalin labeled Cervical cone is a 1.8 cm. in diameter and up to 0.9 cm. in length, previously incised, C-shaped cervical LEEP biopsy specimen excised to a thickness ranging from 0.3 to 0.6 cm. As stated on the specimen requisition slip and specimen container, a stitch denotes 12 o'clock. A squamocolumnar junction is not identified, rather a glistening, smooth, curry-white exocervical. The margins are inked and the specimen is serially sectioned to reveal slightly gritty, rubbery, curry-white fibrous cut surfaces. The specimen is entirely submitted in a clockwise fashion, beginning at 12 o'clock, in cassettes A1 - A3. Part B: Received in formalin labeled Top hat is a diffusely cauterized, previously incised, C-shaped portion of cervical LEEP biopsy specimen, measuring 1.5 cm. in diameter, up to 0.8 cm. in length and ranging from 0.3 to 0.5 cm. in thickness. No sutures are present to orient the specimen. The convex margin is inked. The mucosa is velvety, jauregui-pink with tenacious clear and cloudy, curry-white mucus. The specimen is serially sectioned to reveal slightly gritty, dense, curry-white fibrous cut surfaces. The Patient: Sravanthi Christie Age/Sex: 41/F MR#: [id number] Page 1 of 2 Assessment & Plan Assessment & Plan (1) ASCUS with positive high risk HPV: (2) RIDDHI I (cervical intraepithelial neoplasia I): Comment: Persistent status post LEEP cone with post cone ECC Code(s): N87.0 - Mild cervical dysplasia (3) ASCUS of cervix with negative high risk HPV: Code(s): R87.610 - Atypical squamous cells of undetermined significance on cytologic smear of cervix (ASC-US) (4) ASCUS with positive high risk HPV cervical: Comment: History of RIDDHI 1 Code(s): R87.610 - Atypical squamous cells of undetermined significance on cytologic smear of cervix (ASC-US); R87.810 - Cervical high risk human papillomavirus (HPV) DNA test positive (5) Depot contraception: Code(s): Z30.42 - Encounter for surveillance of injectable contraceptive (6) Well woman exam with routine gynecological exam: Code(s): Z01.419 - Encounter for gynecological examination (general) (routine) without abnormal findings Plan -----Discussed in this visit the following: healthy balanced diet, regular and consistent exercise, getting recommended health screens, doing the best she can for her particular health concerns, kegel exercises, pap smear screening and followup recommendations, mammography screening and SBE, normal changes in cycles in her life stage--- .----I reviewed available options for Control Methods and their associated side effect profiles. In particular, we discussed the method most of interest to her. She is happy on the Depo and says she has been on it for couple of years, before that she had the Nexplanon. I discussed that these are important years preserving bone and it is probably jaramillo to not be on Depo-Provera for very long period of time and she said she would think about it but for right now she has not interested in IUD. She is happy on the Depo-Provera she does think it is contributing little bit to weight gain as well but she overall likes it she says her next injection is in October. She says she gets lots of exercise walking in her job she in a neighbor can you together to their job in [employer]. Medications: Changed From medroxyprogesterone (Depo-Provera) 150 mg IM [id number] 1 mL 0RF To medroxyprogesterone (Depo-Provera) 150 mg IM Q12W 1 mL 5RF Coding Level of Care Code Est Pt Prev Care 40-64y(77912) Diagnoses ASCUS with positive high risk HPV RIDDHI I (cervical intraepithelial neoplasia I) N87.0 ASCUS of cervix with negative high risk HPV R87.610 ASCUS with positive high risk HPV cervical R87.610; R87.810 Depot contraception Z30.42 Well woman exam with routine gynecological exam Z01.419
== END 2023-08-30 15:16 | disposition home or self-care (01) ==
LOC: HO.HWSM 14:23
PROVIDERS: PCP Nurse Practitioner Family; Visit Provider Advanced Practice Midwife
DX: Z01.419 Encounter for gynecological examination (general) (routine) without abnormal findings (principal); N87.0 Mild cervical dysplasia; R87.610 Atypical squamous cells of undetermined significance on cytologic smear of cervix (ASC-US); R87.810 Cervical high risk human papillomavirus (HPV) DNA test positive; Z30.42 Encounter for surveillance of injectable contraceptive
CPT/HCPCS: 99396

== ENCOUNTER 2023-11-01 10:51 | Outpatient (AMB) | payer BC, MEDICAID, SELFPAY ==
--- NOTE | 2023-11-01 11:16 | AM.OFFVISNUR ---
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 No c/o. Pt tolerated injection well. She will schedule her next injection in 12 weeks. Pt verbalizes understanding and agrees with plan. No further questions. Office Procedures Depo Questionnaire If YES to any of the following questions, please consult a provider. Date of last injection: 08/10/23 Date of last gynecology exam: 08/30/23 Menstrual pattern since last injection has been: Not Applicable Irregular bleeding?: No Breast lumps or other breast changes?: No Changes in weight or appetite?: No Depression or changes in mood?: No Abnormal hair growth or loss?: No Skin problems (rash, acne, discoloration)?: No Pain at the injection site?: No Headaches?: No Nervousness?: No Abdominal pain or cramping?: No Dizziness or nausea?: No Fatigue or weakness?: No Decrease in sexual drive?: No Chest pain or shortness of breath?: No Swelling in arms or legs?: No Form completed by?: Lia Vila RN Office Meds Depo-Provera 150 mg/mL intramuscular syringe Performing Provider: Tammie Leal CNM Performing Location: [facility] – [place] [facility] Administered by: Lia Vila on 11/01/23 11:22 Dose Route Admin Location Dispensed Lot Number Expiration Date [facility] Order Clerk 150 mg IM right deltoid 1 mL [id number] 11/06/25 82945-953-72 [facility] Coding Level of Care Code Established Pt Est Pt Level 1 (21044) Patient Type Established History Problem Focused Medical Decision Making Straight Forward Time Spent (min) 12 Assessment & Plan Assessment & Plan Orders: Orders AMB Medroxyprogesterone Injection Patient Supplied Today Z30.42 - Encounter for surveillance of injectable contraceptive
[2023-11-01 11:17] VITALS: BMI 43.6
== END 2023-11-01 11:07 | disposition home or self-care (01) ==
LOC: HO.HWS 10:51
PROVIDERS: PCP Nurse Practitioner Family; Visit Provider Advanced Practice Midwife
DX: Z30.42 Encounter for surveillance of injectable contraceptive (principal)

== ENCOUNTER → 2023-11-01 10:51 | Outpatient (BNVA) | payer BC, MEDICAID, SELFPAY | PROVIDERS: PCP Nurse Practitioner Family; Visit Provider Advanced Practice Midwife | DX: Z30.42 Encounter for surveillance of injectable contraceptive (principal) | CPT/HCPCS: 96372; 99211; J1050 ==

== ENCOUNTER 2023-12-22 12:15 | Emergency (ER) | payer BC, MEDICAID, SELFPAY ==
--- NOTE | ~2023-12-22 | CT_ITS ---
EXAMINATION: CT HEAD WITHOUT CONTRAST CLINICAL INFORMATION: Headache. COMPARISON: None available. TECHNIQUE: Contiguous axial imaging was performed from the skull base to vertex without intravenous administration of contrast. This CT examination was performed using dose optimization techniques as appropriate, variously including the following: *Automated exposure control *Adjustment of mA and/or kV according to patient size (this includes techniques or standardized protocols for targeted exams where dose is matched to indication/reason for exam; i.e. extremities or head) *Use of iterative reconstruction technique DLP: 624 mGy-cm FINDINGS: The lateral, third and fourth ventricles are normally outlined. The cortical sulci and basal cisterns are normally outlined as well. There is no acute territorial defect, hemorrhage or midline shift. The extra-axial spaces are unremarkable. Calvarium: Intact. Maxillofacial sinuses and mastoids: Clear as visualized. CT/CT head/brain wo IV con IMPRESSION: No acute intracranial pathology.
[2023-12-22 13:03] VITALS: BP 150/79; PULSE 84; RESP 16; TEMP 36.6; O2SAT 97; BMI 38.5
--- NOTE | 2023-12-22 13:03 | ED.GENADULT ---
HPI - General Adult General Chief complaint: Headache Stated complaint: Numbness L side of body Time Seen by Provider: 12/22/23 21:53 Source: patient, RN notes reviewed, old records reviewed and fabrication lead Mode of arrival: ambulatory Limitations: language barrier History of Present Illness HPI narrative: 43-year-old female presents for evaluation of ?headache, dizziness and chest pain. ? Patient reports her symptoms started last night. She states that she 1st started with ?a weird sound my left ear. ? She then developed left-sided headache and chest pain that radiated to her left arm. She states that her symptoms persistent all morning today and she still has a 7/10 headache Patient does endorse a history of anxiety and similar episodes of this in the past Denies any abdominal pain but does endorse nausea without vomiting Denies any cough, shortness of breath No other complaints or concerns at this time Related Data Previous Rx's ?Medication ?Instructions ?Recorded medroxyprogesterone 150 mg/mL 150 mg IM Q12W #1 mL 08/30/23 intramuscular suspension (Depo-Provera) Allergies Allergy/AdvReac Type Severity Reaction Status Date / Time No Known Allergies Allergy Verified 12/22/23 13:04 [No Known Allergies*] Review of Systems Constitutional: Constitutional: Denies body ache(s), Denies chills, Denies fever(s) and Reports headache(s) Eyes: Eyes: Denies blurry vision and Denies exophthalmos ENT: Reports dizziness, Reports otalgia, Reports headache(s) and Denies sore throat Cardiovascular: Cardiovascular: Reports chest pain and Denies dyspnea Respiratory: Respiratory: Denies cough and Denies dyspnea Gastrointestinal: Gastrointestinal: Denies abdominal pain, Reports nausea and Denies vomiting Musculoskeletal: Musculoskeletal: Denies back pain Integumentary/Breasts: Skin/Breast: Denies rash Neurologic: Reports dizziness and Reports headache(s) Psychiatric: Psychiatric: Denies suicidal ideation [facility] Past Medical History 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 Surgical History Hx of cholecystectomy Hx of appendectomy Family History Family History Mother Liver cancer Social History Social History Household Members Other:: daughter Housing: House Are you a primary wound care coordinator to a significant other at home: No Do you presently have visiting nurse or other home services: No Alcohol intake: current Alcohol intake frequency: holidays/special occasions only Patient Tobacco Use Status: Never used Tobacco e-Cigarette/Vaping Use: Never Used Advance Directives: No Advance Directives Information Provided: No service: No Current occupational status: employed Current occupation: [employer] Gender identity: Female Cognitive needs: No Hearing needs: No Vision needs: No Physical Exam ED Vital Signs: Vital Signs - 24 hr 12/22/23 13:03 12/22/23 18:31 Temperature 97.9 F 98.0 F Pulse Rate 84 96 Respiratory Rate 16 18 Blood Pressure 150/79 H 125/71 Pulse Oximetry 97 98 Oxygen Delivery Method Room Air Room Air BMI result Body Mass Index 38.5 Const General: healthy appearing, comfortable, no acute distress, alert and awake Nutritional Appearance: well nourished Orientation/consciousness: patient oriented x3 HENMT Head: Yes normocephalic and Yes atraumatic Ears: TM's normal bilaterally and EAC's normal Eyes Eyelids: Yes eyelids normal Conjunctivae: conjunctivae normal Sclerae: sclerae normal Corneas: corneas normal Pupils: Equal, round and reactive pupils present EOM: EOMs intact bilaterally Neck Neck: Yes full ROM Resp Effort & Inspection: normal respiratory effort, able to speak in complete sentences, no audible wheezes and not labored Auscultation: clear to auscultation bilaterally Cardio Rate: regular rate Rhythm: regular rhythm GI Inspection: No distended Palpation (GI): Soft to palpation, not firm, nontender, no guarding and not rigid Skin General skin exam: elasticity normal Neuro General: patient oriented x3 Cranial nerves: Yes CN's II-XII intact bilaterally, Yes Equal, round and reactive pupils present and Yes Bilaterally intact EOM present Cognition (Neuro): normal cognition Extrem Other: Moving all extremities well without any obvious deformities NIH Stroke Scale Internal: Initial- Upon Arrival Time: 13:11 Level of Consciousness: Alert Level of Consciousness Questions: Answers both questions correctly Level of Consciousness Commands: Performs both tasks correctly Best Gaze: Normal Visual: No visual loss Facial Palsy: Normal Motor Arm (Right): No drift Motor Arm (Left): No drift Motor Leg (Right): No drift Motor Leg (Left): No drift Limb Ataxia: Absent Sensory: Normal Best Language: No aphasia Dysarthia: Normal Extinction and Inattention: No abnormality Score: 0 Course Course Course Narrative: This is a rapid medical exam performed by Mahendra Pardo NP: Additional HPI, ROS, PE not included below will be deferred to primary provider. 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 Also reports dizziness worse with head movement and nausea, hx same in the past. NIHSS 0. PLan: EKG, labs Medications Administered Discontinued Medications Generic Name Dose Route Start Last Admin Trade Name Freq PRN Reason Stop Dose Admin Acetaminophen/Butalbital/Caffeine 1 tab 12/22/23 22:35 12/22/23 22:54 Butalb/Acetamin/Caff 50/325/40 Tablet PO 12/22/23 22:36 1 tab ONCE ONE Administration Medical Decision Making Medical Decision Making [facility] Narrative: 43-year-old female presents for evaluation of left ear pain, headache, chest pain that radiates to her left arm. Her physical exam is reassuring without acute findings. No evidence of otitis media or otitis externa. Neuro exam is reassuring without focal deficits. EKG is normal sinus rhythm without ischemic changes. Patient's labs are reassuring, no leukocytosis or anemia. Platelet count is just above normal limits. There is no left shift. No electrolyte abnormalities. Troponin is less than 2.7. Symptoms are most likely related to anxiety. Her will get a CT scan to rule out other pathology Differential Diagnosis Differential Diagnoses: The differential diagnosis associated with the presentation includes Anxiety Chest pain Chest pressure Intracranial hemorrhage Intracranial mass Otitis media Otitis externa Lab Data [facility] Lab Attestation statement: I reviewed the patient's lab results. See above 12/22/23 13:33 12/22/23 13:35 Labs: Lab Results 12/22/23 12/22/23 Range/Units 13:33 13:35 WBC 9.1 (4.8-10.8) X10*3/uL RBC 4.54 (4.20-5.50) X10*6/uL Hgb 13.1 (12.0-16.0) g/dl Hct 39.3 (37.0-47.0) % MCV 86.6 (80.0-98.0) fL MCH 28.9 (27.0-33.0) pg MCHC 33.3 (31.0-35.0) g/dl RDW 13.5 (11.0-16.0) % Plt Count 418 H (160-400) X10*3/uL MPV 8.9 L (9.4-12.3) fL Immature Gran % (Auto) 0.4 (0.0-0.4) % Neut % (Auto) 57.3 (45-73) % Lymph % (Auto) 31.9 (20-40) % [place] % (Auto) 7.9 (2-11) % Eos % (Auto) 1.9 (0-4) % Baso % (Auto) 0.6 (0-2) % Lymph # (Auto) 2.9 (1.2-4.9) X10*3/uL [place] # (Auto) 0.7 (0.1-1.2) X10*3/uL Eos # (Auto) 0.2 (0.0-0.4) X10*3/uL Baso # (Auto) 0.1 (0.0-0.2) X10*3/uL Abs Immat Gran (auto) 0.04 H (0.00-0.03) X10*3/uL Absolute Neuts (auto) 5.2 (2.0-8.3) x10*3/uL Absolute Nucleated RBC 0.000 (0.0-0.012) X10*3/uL Nucleated RBC % (auto) 0.0 (0.0-0.2) /100WBC Sodium 140 (135-145) mmol/L Potassium 3.8 (3.3-5.1) mmol/L Chloride 107 (96-108) mmol/L Carbon Dioxide 23 (22-29) mmol/L Anion Gap 14 (12-20) BUN 8 L (9-16) mg/dL Creatinine 0.68 (0.5-1.4) mg/dL Estim Creat Clear Calc 98.6 Estimated GFR > 60 Random Glucose 113 (60-115) mg/dL Calcium 9.5 (8.4-10.2) mg/dL Total Bilirubin 0.3 (0.0-1.0) mg/dL AST 21 (5-31) U/L ALT 23 (0-31) U/L Alkaline Phosphatase 64 (39-117) U/L Troponin I High Sens < 2.7 (<3.5-17.0) ng/L Total Protein 8.2 H (6.5-8.0) g/dL Albumin 4.5 (3.5-5.0) g/dL Independent Interpretation I performed an independent interpretation of an: EKG Interpretation: See above, normal sinus rhythm Discharge Plan Discharge Clinical Impression: Headache, Left-sided chest pain Patient Disposition: Home, Self-Care Instructions: Chest Pain (ED), Acute Headache (ED) Additional Instructions: Your workup in the ER today was reassuring. Use ibuprofen/Tylenol as needed for any further headaches or pain Follow-up with your primary doctor Prescriptions: No Action medroxyprogesterone [Depo-Provera] 150 mg/mL suspension 150 mg IM Q12W Qty: 1 5RF Print Language: Welsh
--- NOTE | 2023-12-22 13:06 | ECG_ITS ---
Test Reason : CHEST PAIN Blood Pressure : / mmHG Vent. Rate : 080 BPM Atrial Rate : 080 BPM P-R Int : 152 ms QRS Dur : 076 ms QT Int : 366 ms P-R-T Axes : 000 000 013 degrees QTc Int : 422 ms Normal sinus rhythm Normal ECG When compared with ECG of 01-FEB-2023 10:03, No significant change was found Referred By: Connie Pardo Electronically Signed By:HOMAR MEZA MD
[2023-12-22 13:40] LABS: MANUAL DIFF FLAG NO
[2023-12-22 13:42] LABS: Basophils Absolute Auto 0.1 X10*3/uL (0.0-0.2); Basophils Percent Auto 0.6 % (0-2); Eosinophils Absolute Auto 0.2 X10*3/uL (0.0-0.4); Eosinophils Percent Auto 1.9 % (0-4); Hematocrit 39.3 % (37.0-47.0); Hemoglobin 13.1 g/dl (12.0-16.0); Imm Gran Abs Auto 0.04 X10*3/uL (0.00-0.03); Imm Gran Pct Auto 0.4 % (0.0-0.4); Lymphocytes Absolute Auto 2.9 X10*3/uL (1.2-4.9); Lymphocytes Percent Auto 31.9 % (20-40); Mean Corpuscular HGB Conc 33.3 g/dl (31.0-35.0); Mean Corpuscular Hemoglobin 28.9 pg (27.0-33.0); Mean Corpuscular Volume 86.6 fL (80.0-98.0); Mean Platelet Volume 8.9 fL (9.4-12.3); Monocytes Absolute Auto 0.7 X10*3/uL (0.1-1.2); Monocytes Percent Auto 7.9 % (2-11); Neutrophils Absolute Auto 5.2 x10*3/uL (2.0-8.3); Neutrophils Percent Auto 57.3 % (45-73); Platelet Count 418 X10*3/uL (160-400); Red Blood Count 4.54 X10*6/uL (4.20-5.50); Red Cell Distribution Width 13.5 % (11.0-16.0); White Blood Count 9.1 X10*3/uL (4.8-10.8)
[2023-12-22 13:55] LABS: Alanine Aminotransferase 23 U/L (0-31); Albumin Level 4.5 g/dL (3.5-5.0); Alkaline Phosphatase 64 U/L (39-117); Anion Gap 14 (12-20); Aspartate Amino Transferase 21 U/L (5-31); Bilirubin Total 0.3 mg/dL (0.0-1.0); Blood Urea Nitrogen 8 mg/dL (9-16); Calcium 9.5 mg/dL (8.4-10.2); Carbon Dioxide 23 mmol/L (22-29); Chloride 107 mmol/L (96-108); Creatinine Clr Calc Pharmacy 98.6; Estimated Glomerular Filt Rate > 60; Glucose Random 113 mg/dL (60-115); Potassium 3.8 mmol/L (3.3-5.1); Sodium 140 mmol/L (135-145); Total Protein 8.2 g/dL (6.5-8.0)
[2023-12-22 14:02] LABS: Troponin-I High Sensitivity < 2.7 ng/L (<3.5-17.0)
[2023-12-22 18:31] VITALS: BP 125/71; PULSE 96; RESP 18; TEMP 36.7; O2SAT 98
[2023-12-22] MEDS: Butalb/Acetamin/Caff 50/325/40 TABLET 1 TAB PO (22:54)
--- NOTE | 2023-12-22 23:26 | PC.NURSE ---
this rn assumed care of pt, pt resting in stretcher, no acute distress noted. pt at this time reports small relief of migraine.
[2023-12-22 23:36] VITALS: BP 113/57; PULSE 77; RESP 16; TEMP 36.8; O2SAT 98
[2023-12-23 00:09] VITALS: BP 113/57; PULSE 77; RESP 16; TEMP 36.8; O2SAT 98
== END 2023-12-23 00:10 | disposition home or self-care (01) ==
PROVIDERS: Registered Nurse Emergency; Emergency Provider Internal Medicine
DX: R51.9 Headache, unspecified (principal); R07.9 Chest pain, unspecified; R42 Dizziness and giddiness; H92.02 Otalgia, left ear
CPT/HCPCS: 36415; 70450; 80053; 84484; 85025; 93005; 99284; 99285

== ENCOUNTER → 2023-12-22 13:06 | Outpatient (BNV) | payer BC, MEDICAID, SELFPAY | PROVIDERS: Emergency Provider Internal Medicine; Visit Provider Internal Medicine Cardiovascular Disease | DX: R07.9 Chest pain, unspecified (principal) | CPT/HCPCS: 93010 ==

== ENCOUNTER 2024-01-17 10:50 | Outpatient (AMB) | payer BC, MEDICAID, SELFPAY ==
--- NOTE | 2024-01-17 11:50 | AM.OFFVISNUR ---
Intake Vital Signs 01/17/24 11:51 Height 4 ft 10 in Weight 83.518 kg BMI 38.5 BP 112/64 Blood Pressure Location Rt brachial Position Sitting Intake Visit Reasons: Depo Allergies No Known Allergies [No Known Allergies*] Allergy (Verified 12/22/23 13:04) Nursing Note Sravanthi is here today for her scheduled Depo-Provera inj. She is c/o headaches and had some ''tingling in her arms''. Pt was seen in ED and was told to follow up with her PCP. Pts BP today was 112/64. Pt denies any chest pain or left arm pain. Pt voiced to me and Mel that she wanted her injection today, she is really not sure if headaches are from the Depo-Provera or stress or anxiety. Pt will schedule appt with Tammie Leal to discuss other options of control. Office Procedures Depo Questionnaire If YES to any of the following questions, please consult a provider. Date of last injection: 11/01/23 Date of last gynecology exam: 08/30/23 Menstrual pattern since last injection has been: Not Applicable Irregular bleeding?: No Breast lumps or other breast changes?: No Changes in weight or appetite?: No Depression or changes in mood?: No Abnormal hair growth or loss?: No Skin problems (rash, acne, discoloration)?: No Pain at the injection site?: No Headaches?: Yes Nervousness?: No Abdominal pain or cramping?: No Dizziness or nausea?: No Fatigue or weakness?: No Decrease in sexual drive?: No Chest pain or shortness of breath?: No Swelling in arms or legs?: No Any other problems or concerns?: c/o headaches, was seen in ED, going to foolw up with her PCP. Form completed by?: Giuseppe Cramer LPN Office Meds Depo-Provera 150 mg/mL intramuscular syringe Performing Provider: Tammie Leal CNM Performing Location: [facility] [place] [facility] Administered by: Paty Cramer LPN on 01/17/24 11:52 Dose Route Admin Location Dispensed Lot Number Expiration Date [facility] [employer] 150 mg IM left deltoid 1 mL [id number] 03/07/26 28962-454-87 [facility] Coding Level of Care Code Established Pt Est Pt Level 1 (99092) Patient Type Established History Problem Focused Exam Problem Focused Medical Decision Making Straight Forward Time Spent (min) 25 Assessment & Plan Assessment & Plan Orders: Orders AMB Medroxyprogesterone Injection Patient Supplied Today Z30.42 - Encounter for surveillance of injectable contraceptive Medications: New Depo-Provera (medroxyprogesterone) 150 mg IM ONCE 1 mL 0RF NS Z30.42 - Encounter for surveillance of injectable contraceptive
[2024-01-17 11:51] VITALS: BP 112/64; BMI 38.5
== END 2024-01-17 12:04 | disposition home or self-care (01) ==
LOC: HO.HWS 10:50
PROVIDERS: Visit Provider Advanced Practice Midwife
DX: Z30.42 Encounter for surveillance of injectable contraceptive (principal)

== ENCOUNTER → 2024-01-17 10:50 | Outpatient (BNVA) | payer BC, MEDICAID, SELFPAY | PROVIDERS: Visit Provider Advanced Practice Midwife | DX: Z30.42 Encounter for surveillance of injectable contraceptive (principal) | CPT/HCPCS: 96372; 99211; J1050 ==

== ENCOUNTER 2024-04-17 14:40 | Outpatient (AMB) | payer BC, MEDICAID, SELFPAY ==
[2024-04-17 15:00] VITALS: BMI 39.3
--- NOTE | 2024-04-17 15:00 | AM.OFFVISNUR ---
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 No c/o, no new medical problems, no new medications. Pt tolerated injection well. She will schedule her next injection in 12 weeks. Pt verbalizes understanding and agrees with plan. No further questions. Office Procedures Depo Questionnaire If YES to any of the following questions, please consult a provider. Date of last injection: 01/17/24 Date of last gynecology exam: 08/30/23 Menstrual pattern since last injection has been: Not Applicable Irregular bleeding?: No Breast lumps or other breast changes?: No Changes in weight or appetite?: No Depression or changes in mood?: No Abnormal hair growth or loss?: No Skin problems (rash, acne, discoloration)?: No Pain at the injection site?: No Headaches?: No Nervousness?: No Abdominal pain or cramping?: No Dizziness or nausea?: No Fatigue or weakness?: No Decrease in sexual drive?: No Chest pain or shortness of breath?: No Swelling in arms or legs?: No Form completed by?: Lia Vila RN Office Meds Depo-Provera 150 mg/mL intramuscular syringe Performing Provider: Tammie Leal CNM Performing Location: [facility] [place] [place] [facility] Administered by: Lia Vila on 04/17/24 15:03 Dose Route Admin Location Dispensed Lot Number Expiration Date [facility] [employer] 150 mg IM LGM 1 mL [id number] 08/08/26 74799-673-43 [facility] Assessment & Plan Assessment & Plan (1) Depot contraception: Code(s): Z30.42 - Encounter for surveillance of injectable contraceptive Category: Medical Orders: Orders AMB Medroxyprogesterone Injection Patient Supplied Today Z30.42 - Encounter for surveillance of injectable contraceptive Medications: New Depo-Provera (medroxyprogesterone) 150 mg IM ONCE 1 mL 0RF NS Z30.42 - Encounter for surveillance of injectable contraceptive Patient Instructions: Schedule next Depo injection in 12 weeks.
== END 2024-04-17 16:23 | disposition home or self-care (01) ==
LOC: HO.HWS 14:40
PROVIDERS: Visit Provider Advanced Practice Midwife
DX: Z30.42 Encounter for surveillance of injectable contraceptive (principal)

== ENCOUNTER → 2024-04-17 14:40 | Outpatient (BNVA) | payer BC, MEDICAID, SELFPAY | PROVIDERS: Visit Provider Advanced Practice Midwife | DX: Z30.42 Encounter for surveillance of injectable contraceptive (principal) | CPT/HCPCS: 96372; 99211; J1050 ==

== ENCOUNTER 2024-04-21 13:41 | Outpatient (AMB) | payer BC, MEDICAID, SELFPAY ==
--- NOTE | 2024-04-21 13:48 | MHC.PC.OV ---
Vital Signs 04/21/24 13:51 Height 4 ft 10 in Weight 185 lb 4 oz BMI 38.7 BP 110/72 Blood Pressure Location Lt brachial Position Sitting Pulse 83 Pulse Source Pulse Oximeter Pulse Oximetry (%) 100 Oxygen Delivery Method Room Air Intake Visit Reasons: piedad/ ED follow up March bad head pain Intake Note: Patient is here to follow up on headaches with blurry vision and rash. Vocational Coordinator Required: Yes Vocational Coordinator Language: Coil Former Name: Marysol ([id number]) Information Interpreted: non-clinical & clinical Drawer In Hand: Not Required per policy Accompanied by: Self / Same As Patient Allergies No Known Allergies [No Known Allergies*] Allergy (Verified 04/21/24 14:12) Medication List - Last Reconciled 04/21/24 by Velma Cardenas PA-C medroxyprogesterone (Depo-Provera) 150 mg IM Q12W Tobacco use date assessed: 04/21/24 Dental Screening Dental Screen Date: 04/21/24 Did you have a dental visit in the last 12 months?: Yes Did you have a dental problem in the last 6 months where you did not have access to dental care?: No Was dental information given to patient?: Patient has dentist HPI piedad/ ED follow up March bad head pain HPI Details 43-year-old female with past medical history 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 In review of the notes, patient was seen [place] [facility] [place] 2023 for headache and chest pain. Head CT, EKG, and labs were within normal limits patient was discharged home to use ibuprofen/Tylenol as needed for headaches. sectionizer was used for the duration of this appointment. Patient states she has been dealing with anxiety about her kids as well as being alone and has not been treated with medications in the past. She was previously treated with counseling which she found beneficial but due to her work schedule she was unable to continue. She does also complain of occasional headaches that cause vision changes and nausea that start in the morning and resolve with Tylenol and ibuprofen. The headaches occur every 2-3 weeks and consistently. She also complains of a itchy erythematous rash on the upper extremities in patches and she follows with Dermatology and was given a cream for this. She also mentioned she has occasional heartburn after breakfast. 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 Surgical History Hx of cholecystectomy Hx of appendectomy Family History Mother Liver cancer Social History Household Members Other:: daughter Housing: House Are you a primary long term care social worker to a significant other at home: No Do you presently have visiting nurse or other home services: No Alcohol intake: current Alcohol intake frequency: holidays/special occasions only Patient Tobacco Use Status: Never used Tobacco e-Cigarette/Vaping Use: Never Used Second Hand Smoke Exposure: No service: No Current occupational status: employed Current occupation: [employer] Gender identity: Female Cognitive needs: No Hearing needs: No Vision needs: No Female Reproductive History Menstrual Age of Menarche: 12 Questionnaire PHQ-9 Over the last 2 weeks, how often have you been bothered by any of the following problems? 1. Little interest or pleasure in doing things: not at all 2. Feeling down, depressed, or hopeless: not at all 3. Trouble falling or staying asleep, or sleeping too much: not at all 4. Feeling tired or having little energy: not at all 5. Poor appetite or overeating: not at all 6. Feeling bad about yourself - or that you are a failure or have let yourself or your family down: not at all 7. Trouble concentrating on things, such as reading the newspaper or watching television: not at all 8. Moving or speaking so slowly that other people could have noticed. Or the opposite - being so fidgety or restless that you have been moving around a lot more than usual: not at all 9. Thoughts that you would be better off or of hurting yourself in some way: not at all Total score: 0 Depression Screening Interpretation: Negative Depression Screening Done: Yes Source: Developed by Drs. Juan Lomeli, Justine Plasencia, Oziel Mason and colleagues, with an educational gadiel from [employer]. Thrive Questionnaire Date Thrive assessed: 04/21/24 I am a: Patient What is your living situation today?: I have a steady place to live Within the past 12 months, did the food you bought not last and you didn't have the money to get more?: Never true Within the past 12 months, did you worry whether your food would run out before you got money to buy more?: Never true Do you have trouble paying for medicines?: No Do you have trouble getting transportation to medical appointments?: No Do you have trouble paying your heating and electricity bill?: No Do you have trouble taking care of your child, family member or friend?: No Do you have trouble with day-to-day activities such as bathing, preparing meals, shopping, managing finances, etc.?: No Are you currently unemployed and looking for a job?: No Are you interested in more education?: No Currently or been in a relationship where the following occur: No concerns reported THRIVE Score: 0 AUDIT C Alcohol Use Questionnaire (AUDIT-C) 1. How often do you have a drink containing alcohol?: Monthly or less 2. How many drinks containing alcohol do you have on a typical day when you are drinking?: 1 or 2 Total Score: 1 REJI-7 AMB Questionnaire REJI-7 Date REJI - 7 assessed: 04/21/24 Feeling nervous, anxious, or on edge: 2 = More than half the days Not being able to stop or control worryin = Several days Worrying too much about different things: 1 = Several days Trouble relaxin = Not at all Being so restless that it is hard to sit still: 0 = Not at all Becoming easily annoyed or irritable: 0 = Not at all Feeling afraid as if something awful might happen: 0 = Not at all Total REJI-7 score (0-4 normal; 5-9 mild; 10-14 moderate; 15-21 severe): 4 Source: Developed by Drs. Juan Lomeli, Justine Plasencia, Oziel Mason and colleagues, with an educational gadiel from [employer]. REJI-7 Assessment Billing REJI-7 Assessment Tool: REIJ-7 Assessment 55340 Review of Systems Const Denies body aches, Denies fatigue, Denies fever(s), Denies frequent falls, Reports headache(s) (occasional) and Denies weakness Eyes Reports no additional complaints, Reports blurry vision (with migraines) and Denies change in vision ENT Denies dysphagia, Denies dizziness, Denies facial pain, Reports headache(s) (occasional), Denies nasal congestion and Denies odynophagia Card Denies chest pain, Denies syncope, Denies irregular heart rhythm, Denies leg edema, Denies lightheadedness and Denies dyspnea Resp Denies cough and Denies dyspnea GI Denies constipation, Denies dysphagia, Denies dyspepsia, Denies diarrhea, Reports nausea (with migraine), Denies odynophagia and Denies vomiting Denies urinary frequency, Denies dysuria, Denies urinary hesitancy and Denies urinary urgency Musc Denies back pain and Denies myalgias Skin/Breast Reports system reviewed and no additional complaints, except as documented Neuro Denies dizziness, Denies syncope, Denies frequent falls, Reports headache(s) (occasional) and Denies weakness Psych Reports as per HPI Endo Denies fatigue Physical exam (Primary Care) Vital Signs: Last Vital Signs Pulse 83 04/21/24 13:51 BP 110/72 04/21/24 13:51 Pulse Ox 100 04/21/24 13:51 Oxygen Delivery Method Room Air 04/21/24 13:51 BMI result Body Mass Index 38.7 Tobacco/Smoking Status: Tobacco use Status Tobacco use date assessed 04/21/24 04/21/24 13:55 Patient Tobacco Use Status Never used Tobacco 04/21/24 13:50 e-Cigarette/Vaping Use Never Used 04/21/24 13:50 PHQ-9: PHQ-9 Score PHQ-9: Total score 0 04/21/24 15:09 Depression Screening Interpretation: Negative Thrive Assessment: Date of Thrive Assessment Date Thrive assessed 04/21/24 04/21/24 13:50 Currently or been in a relationship where the following occur: No concerns reported Const General: cooperative, healthy appearing, comfortable and no acute distress Orientation/consciousness: patient oriented x3 HENMT Head: Yes normocephalic Ears: hearing grossly normal bilaterally General nose exam: Normal external nose present Eyes General: appearance normal, both eyes and all related structures Conjunctivae: conjunctivae normal Neck Neck: Yes full ROM and Yes no lymphadenopathy Resp Effort & Inspection: normal respiratory effort Auscultation: clear to auscultation bilaterally, no crackles, no rales, no rhonchi and no wheezes Cardio Rate: regular rate Rhythm: regular rhythm Skin Other: patchy, erythematous, flaky rash on bilateral upper extremities General skin exam: no rashes or lesions noted Neuro General: patient oriented x3 Gait exam (Neuro): Normal gait present Extrem General: Yes normal to inspection, Yes full ROM and No edema Psych Affect: normal affect Attitude: cooperative Insight: Good insight present (Psych) Judgement: Good judgement present (Psych) Assessment and Plan Assessment & Plan (1) Anxiety: Code(s): F41.9 - Anxiety disorder, unspecified Plan: Patient wants something for intermittent anxiety and not submitted take every day. Recommend taking hydroxyzine as needed for increased anxiety. Discussed side effects of this medication with the patient. Will follow up in 2 months to evaluate efficacy. (2) Rash: Code(s): R21 - Rash and other nonspecific skin eruption Plan: Patient has rash on bilateral upper extremities that is being managed by Dermatology and she uses a cream but is unsure of which 1. She is looking for a systems lead that is closer to her home and new referral placed today. (3) RIDDHI I (cervical intraepithelial neoplasia I): Comment: Persistent status post LEEP cone with post cone ECC, 08/30/2023 Pap is negative with negative HPV. Code(s): N87.0 - Mild cervical dysplasia Plan: Continue to follow with gynecology. (4) GERD (gastroesophageal reflux disease): Code(s): K21.9 - Gastro-esophageal reflux disease without esophagitis Plan: Patient complains of occasional reflux and does not identify any triggers. We will try famotidine as needed for symptoms. Avoid trigger foods such as citrus, tomato products, soda, caffeine, spicy foods and other foods that may be irritating to your stomach. Avoid laying flat 3-4 hours after eating and elevate the head of the bed 30 degrees to prevent acid from moving into the esophagus. Follow up in 2 months. Plan This note was constructed using voice recognition software. While every effort has been made to ensure accuracy and community service patrol officer, still areas may have been included sometimes these areas may affect the content or meeting of the given symptoms. Total time spent caring for the patient today was 30 minutes. This includes time spent before the visit reviewing the chart, time spent during the visit, and time spent after the visit and documentation. Orders: Referrals Dermatology Referral R21 - Rash and other nonspecific skin eruption Medications: New hydroxyzine HCl 25 mg PO BID PRN 30 tabs 1RF anxiety famotidine (Acid Supervisor Type Disk Quality Control (famotidine)) 10 mg PO BID PRN 30 tabs 1RF reflux Coding Level of Care Code Est Pt Level 4 (73747) Diagnoses Anxiety F41.9 Rash R21 RIDDHI I (cervical intraepithelial neoplasia I) N87.0 GERD (gastroesophageal reflux disease) K21.9 Additional Codes REJI-7 Assessment Billing - REJI-7 Assessment Tool: REJI-7 Assessment 73716 ([id number])
[2024-04-21 13:51] VITALS: BP 110/72; PULSE 83; O2SAT 100; BMI 38.7
== END 2024-04-21 14:42 | disposition home or self-care (01) ==
DX: F41.9 Anxiety disorder, unspecified (principal); R21 Rash and other nonspecific skin eruption; N87.0 Mild cervical dysplasia; K21.9 Gastro-esophageal reflux disease without esophagitis
CPT/HCPCS: 96127; 99214

== ENCOUNTER 2024-05-29 09:50 | Outpatient (AMB) | payer BC, MEDICAID, SELFPAY ==
[2024-05-29 10:02] VITALS: BP 108/76; PULSE 85; O2SAT 97; BMI 39.9
--- NOTE | 2024-05-29 10:02 | A.OFFPC_ITS ---
Vital Signs 05/29/24 10:02 Height 4 ft 10 in Weight 191 lb 0.2 oz BMI 39.9 BP 108/76 Blood Pressure Location Lt brachial Position Sitting Pulse 85 Pulse Source Pulse Oximeter Pulse Oximetry (%) 97 Oxygen Delivery Method Room Air Intake Visit Reasons: f/u medication/ headaches Allergies hydroxyzine Allergy (Mild, Verified 05/29/24 10:50) Rash Medication List - Last Reconciled 05/29/24 by Velma Cardenas PA-C famotidine (Acid Waste Machine Operator (famotidine)) 10 mg PO BID PRN hydroxyzine HCl 25 mg PO BID PRN medroxyprogesterone (Depo-Provera) 150 mg IM Q12W Tobacco use date assessed: 04/21/24 Dental Screening Dental Screen Date: 04/21/24 HPI f/u medication/ headaches HPI Details 43-year-old Belarusian-speaking female with past medical history of cervical intraepithelial neoplasia and history of Harvey's palsy last seen April 2024 coming in for acute problem. Dredge Mechanic was used for the duration of this appointment. Patient states 2 nights ago she began having nasal congestion, throat itchiness, and intermittent cough. Denies any sick contacts, fevers, sore throat or painful swallowing. She was previously on hydroxyzine for anxiety but had a skin rash from this medication and discontinued at that time. She feels her anxiety is well controlled in denies the need for medication at this time. She continues to have patches of itchy skin and has been using [id number] lotions and has a dermatology appointment in December. 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 Surgical History Hx of cholecystectomy Hx of appendectomy Family History Mother Liver cancer Social History Household Members Other:: daughter Housing: House Are you a primary home health aide caregiver to a significant other at home: No Do you presently have visiting nurse or other home services: No Alcohol intake: current Alcohol intake frequency: holidays/special occasions o nly Patient Tobacco Use Status: Never used Tobacco e-Cigarette/Vaping Use: Never Used Second Hand Smoke Exposure: No service: No Current occupational status: employed Current occupation: [employer] Gender identity: Female Cognitive needs: No Hearing needs: No Vision needs: No Female Reproductive History Menstrual Age of Menarche: 12 Questionnaire Thrive Questionnaire Date Thrive assessed: 04/21/24 REJI-7 AMB Questionnaire REJI-7 Date REJI - 7 assessed: 04/21/24 Source: Developed by Drs. Juan Lomeli, Justine Plasencia, Oziel Mason and colleagues, with an educational gadiel from [employer]. Review of Systems Const Denies body aches, Denies chills, Denies fever(s), Denies headache(s) and Denies poor appetite Eyes Reports no additional complaints ENT Denies dysphagia, Denies dizziness, Denies headache(s), Reports nasal congestion, Reports nasal discharge, Denies odynophagia, Denies sinus pain, Denies sore throat and Denies throat swelling Card Denies chest pain, Denies syncope, Denies edema, Denies irregular heart rhythm, Denies lightheadedness and Denies dyspnea Resp Reports cough, Denies excessive phlegm production and Denies dyspnea GI Denies abdominal pain, Denies constipation, Denies dysphagia, Denies diarrhea, Denies nausea, Denies odynophagia and Denies vomiting Reports no additional complaints Musc Reports no additional complaints and Denies abnormal gait Skin/Breast Reports system reviewed and no additional complaints, except as documented Neuro Denies abnormal gait, Denies dizziness, Denies syncope and Denies headache(s) Psych Reports no additional complaints Aller/Immun Denies throat swelling Physical exam (Primary Care) Vital Signs: Last Vital Signs Pulse 85 05/29/24 10:02 BP 108/76 05/29/24 10:02 Pulse Ox 97 05/29/24 10:02 Oxygen Delivery Method Room Air 05/29/24 10:02 BMI result Body Mass Index 39.9 Tobacco/Smoking Status: Tobacco use Status Tobacco use date assessed 04/21/24 05/29/24 10:04 Patient Tobacco Use Status Never used Tobacco 05/29/24 10:04 e-Cigarette/Vaping Use Never Used 05/29/24 10:04 Thrive Assessment: Date of Thrive Assessment Date Thrive assessed 04/21/24 05/29/24 10:04 Const General: cooperative, healthy appearing, comfortable and no acute distress Orientation/consciousness: patient oriented x3 HENMT Head: Yes normocephalic Ears: hearing grossly normal bilaterally, TM's normal bilaterally and EAC's normal General nose exam: Normal external nose present Face and sinus: Yes normal facial exam and Yes sinuses nontender Mouth: oropharynx normal and moist mucous membranes Throat: Yes posterior oropharynx normal, Yes tonsils normal and Yes uvula midline Eyes General: appearance normal, both eyes and all related structures Conjunctivae: conjunctivae normal Neck Neck: Yes full ROM and Yes no lymphadenopathy Resp Effort & Inspection: normal respiratory effort Auscultation: clear to auscultation bilaterally, no crackles, no rales, no rhonchi and no wheezes Cardio Rate: regular rate Rhythm: regular rhythm Skin Other: Patchy, dry eczematous lesions scattered on the extremities Neuro General: patient oriented x3 Gait exam (Neuro): Normal gait present Extrem General: Yes normal to inspection, Yes full ROM and No edema Psych Affect: normal affect Attitude: cooperative Insight: Good insight present (Psych) Judgement: Good judgement present (Psych) Coding Level of Care Code Est Pt Level 3 (61229) Diagnoses Anxiety F41.9 GERD (gastroesophageal reflux disease) K21.9 Sinus congestion R09.81 Eczema L30.9 Assessment & Plan Assessment & Plan (1) Anxiety: Code(s): F41.9 - Anxiety disorder, unspecified Category: Medical Plan: Patient feels anxiety is well managed at this time and declines any additional medication or counseling referral. (2) GERD (gastroesophageal reflux disease): Code(s): K21.9 - Gastro-esophageal reflux disease without esophagitis Category: Medical Plan: Avoid trigger foods such as citrus, tomato products, soda, caffeine, spicy foods and other foods that may be irritating to your stomach. Avoid laying flat 3-4 hours after eating and elevate the head of the bed 30 degrees to prevent acid from moving into the esophagus. (3) Sinus congestion: Code(s): R09.81 - Nasal congestion Category: Medical Plan: Ordered for viral panel advised patient to use llmo-bdb-okqqkca antihistamines along with cough medicine as needed. (4) Eczema: Code(s): L30.9 - Dermatitis, unspecified Category: Medical Plan: Advised patient to use qyar-[id number] emollients for maintenance therapy and given triamcinolone lotion for severe patches of eczema. Plan This note was constructed using voice recognition software. While every effort has been made to ensure accuracy and director of business systems, still areas may have been included sometimes these areas may affect the content or meeting of the given symptoms. Total time spent caring for the patient today was 30 minutes. This includes time spent before the visit reviewing the chart, time spent during the visit, and time spent after the visit and documentation. Orders: Orders SARS-CoV2/FLU/RSV Today R09.81 - Nasal congestion Medications: New triamcinolone acetonide 0.1% 1 appl topical DAILY 60 mL 0RF Discontinued hydroxyzine HCl Discontinued Reason: Patient no longer taking 25 mg PO BID PRN 30 tabs 1RF anxiety
== END 2024-05-29 10:34 | disposition home or self-care (01) ==
DX: F41.9 Anxiety disorder, unspecified (principal); K21.9 Gastro-esophageal reflux disease without esophagitis; R09.81 Nasal congestion; L30.9 Dermatitis, unspecified

== ENCOUNTER 2024-05-29 09:50 | Outpatient (REF) | payer BC, MEDICAID, SELFPAY ==
[2024-05-29 11:51] LABS: Influenza A PCR NEGATIVE (Negative); Influenza B PCR NEGATIVE (Negative); Resp Syncy Virus RNA Qual PCR NEGATIVE (Negative); SARS COV2 PCR INHOUSE NEGATIVE (Negative)
== END 2024-05-29 09:51 | disposition home or self-care (01) ==
LOC: HO.LAB 09:50
DX: R09.81 Nasal congestion (principal); F41.9 Anxiety disorder, unspecified; K21.9 Gastro-esophageal reflux disease without esophagitis; L30.9 Dermatitis, unspecified
CPT/HCPCS: 0241U

== ENCOUNTER 2024-06-05 14:23 | Outpatient (REF) | payer BC, MEDICAID, SELFPAY ==
--- NOTE | ~2024-06-05 | MM_ITS ---
EXAMINATION: MM SCREENING DIGITAL BREAST TOMOSYNTHESIS, BILATERAL CLINICAL INFORMATION: Screening. Asymptomatic. COMPARISON: Mammography: Comparison is made with available priors TECHNIQUE: Digital breast mammography with tomosynthesis is performed in both the craniocaudal and mediolateral oblique views along with computer-aided detection (CAD). FINDINGS: There are scattered areas of fibroglandular density (ACR BI-RADS breast composition Category b). There are no significant masses, abnormal calcifications, or other abnormalities. MM/MM tomosynthesis screening BI IMPRESSION: No mammographic evidence of malignancy. ASSESSMENT: BI-RADS BI-RADS 1 - Negative RECOMMENDATION: Routine annual mammography screening. 1 year F/U This examination should not preclude the clinical evaluation of a suspicious palpable abnormality. This patient's information was entered into a reminder system with a target due date for their next mammogram. Electronically signed by: Ade Ni DO 06/14/2024 10:28 AM MIKE
== END 2024-06-05 14:24 | disposition home or self-care (01) ==
LOC: HO.MAMMO 14:23
PROVIDERS: Visit Provider Advanced Practice Midwife
DX: Z12.31 Encounter for screening mammogram for malignant neoplasm of breast (principal)
CPT/HCPCS: 77063; 77067

== ENCOUNTER → 2024-06-05 14:30 | Outpatient (BNV) | payer BC, MEDICAID, SELFPAY | PROVIDERS: Visit Provider Internal Medicine | DX: Z12.31 Encounter for screening mammogram for malignant neoplasm of breast (principal) | CPT/HCPCS: 77063; 77067 ==

== ENCOUNTER 2024-06-27 04:42 | Inpatient (IN) | payer BC, MEDICAID, SELFPAY ==
[2024-06-27] VITALS (27 sets, daily range): BP systolic 88–125; BP diastolic 40–73; PULSE 18–140; RESP 15–32; TEMP 36.5–39.7; O2SAT 94–99; BMI 38.5; BMI 42.1; BMI 40.0; BMI 40.5
--- NOTE | 2024-06-27 | ECG_ITS ---
Test Reason : HYPOTENSION Blood Pressure : / mmHG Vent. Rate : 111 BPM Atrial Rate : 111 BPM P-R Int : 180 ms QRS Dur : 068 ms QT Int : 310 ms P-R-T Axes : 025 004 023 degrees QTc Int : 421 ms Sinus tachycardia Otherwise normal ECG When compared with ECG of 22-DEC-2023 13:28, No significant change was found Referred By: Cuco Moreno Electronically Signed By:HOMAR MEZA MD
--- NOTE | ~2024-06-27 | CT_ITS ---
EXAMINATION: CT ABDOMEN AND PELVIS WITH CONTRAST CLINICAL INFORMATION: Abdominal pain. COMPARISON: None available. TECHNIQUE: Multidetector volumetric images were obtained from the superior aspect of the liver through the pubic symphysis following administration 85 mL of Omnipaque 350 intravenous contrast without reported immediate complications. Sagittal and coronal reformatted images were obtained on the technologist's workstation. Oral contrast: No This CT examination was performed using dose optimization techniques as appropriate, variously including the following: *Automated exposure control *Adjustment of mA and/or kV according to patient size (this includes techniques or standardized protocols for targeted exams where dose is matched to indication/reason for exam; i.e. extremities or head) *Use of iterative reconstruction technique DLP: 807 mGy-cm FINDINGS: Limited by patient's breathing motion artifact. LUNG BASES: Pulmonary patchy groundglass, lung bases. LIVER, GALLBLADDER, AND BILIARY TREE: Liver measures 16 cm with decreased enhancement pattern. Main portal vein, hepatic veins and intrahepatic portion of the IVC are patent. No intrahepatic biliary ductal dilatation.. Gallbladder is absent. Common bile duct measures 4 mm. PANCREAS: No focal pancreatic mass. No peripancreatic fluid collection. No main pancreatic ductal dilatation. SPLEEN: 7 cm. No focal mass. ADRENAL GLANDS: No nodular lesions. KIDNEYS AND URETERS: No gross renal mass or hydronephrosis. BLADDER: Fluid-filled. GASTROINTESTINAL TRACT: Abundant stool. No intestinal obstruction pattern. No ascites. No pneumoperitoneum. No pneumatosis intestinalis. No pericecal edema pattern. ABDOMINAL WALL: Small fat-containing umbilical hernia. Diastases in the periumbilical region of the abdominal rectus muscles and protrusion of the intra-abdominal contents. LYMPH NODES: No gross lymphadenopathy. VASCULAR: No aneurysm or dissection, abdominal aorta. PELVIC VISCERA: No gross masses in the adnexa. OSSEOUS STRUCTURES: No acute fracture or gross listhesis in the axial skeleton. No lytic or blastic lesions. Bony pelvis and coxofemoral joints are intact. CT/CT abdomen pelvis w IV con IMPRESSION: Small fat-containing umbilical hernia and diastases abdominal rectus muscles with protrusion of the intra-abdominal contents. Hepatic steatosis. Fleischner guidelines were followed. Electronically signed by: Greg Rothman MD 06/27/2024 09:56 AM [facility]
--- NOTE | ~2024-06-27 | XR_ITS ---
EXAMINATION: XR CHEST CLINICAL INFORMATION: dizziness, sob COMPARISON: None available. TECHNIQUE: 2 views of the chest were obtained. FINDINGS: No significant abnormality is noted involving the heart, lungs, mediastinum, bony thorax or soft tissues. XR/XR chest 2V IMPRESSION: No acute cardiopulmonary disease. Electronically signed by: Wilian Meyer MD 06/27/2024 08:34 AM [facility] [place]
[2024-06-27 05:05] LABS: IDNOW Serial# 6674DD1D; Strep A Nucleic Acid Negative (Negative)
[2024-06-27 05:59] LABS: Influenza A PCR NEGATIVE (Negative); Influenza B PCR NEGATIVE (Negative); Resp Syncy Virus RNA Qual PCR NEGATIVE (Negative); SARS COV2 PCR INHOUSE NEGATIVE (Negative)
[2024-06-27] MEDS: cefTRIAXone sodium 1 GM VIAL IVPUSH (06:30)
[2024-06-27] MEDS: Acetaminophen 325 MG TABLET 650 MG PO ×2 (06:30→22:08)
[2024-06-27] MEDS: 0.9 % Sodium Chloride 2,600 ML 2600 ML IV (06:30)
[2024-06-27 06:34] LABS: Basophils Percent Auto 0.2 % (0-2); Eosinophils Percent Auto 0.1 % (0-4); Hematocrit 37.4 % (37.0-47.0); Hemoglobin 12.7 g/dl (12.0-16.0); Imm Gran Abs Auto 0.08 X10*3/uL (0.00-0.03); Imm Gran Pct Auto 0.4 % (0.0-0.4); Lymphocytes Absolute Auto 1.2 X10*3/uL (1.2-4.9); Lymphocytes Percent Auto 6.4 % (20-40); Mean Corpuscular Hemoglobin 29.1 pg (27.0-33.0); Mean Corpuscular Volume 85.6 fL (80.0-98.0); Monocytes Absolute Auto 0.8 X10*3/uL (0.1-1.2); Monocytes Percent Auto 4.2 % (2-11); Neutrophils Absolute Auto 16.1 x10*3/uL (2.0-8.3); Neutrophils Percent Auto 88.7 % (45-73); Platelet Count 369 X10*3/uL (160-400); Red Blood Count 4.37 X10*6/uL (4.20-5.50); Red Cell Distribution Width 13.4 % (11.0-16.0); White Blood Count 18.2 X10*3/uL (4.8-10.8)
[2024-06-27 06:35] LABS: MANUAL DIFF FLAG NO
--- NOTE | 2024-06-27 06:48 | ED_ITS ---
HPI - General Adult General Chief complaint: Upper Respiratory Symptoms Stated complaint: abd pain, fever Time Seen by Provider: 06/27/24 06:40 Source: patient and brake adjuster (all interactions with this patient were facilitated with an [facility] bear keeper) Mode of arrival: ambulatory Limitations: language barrier (all interactions with this patient were facilitated with an [facility] bear keeper) History of Present Illness ED Provider: Aida Boswell PA-C HPI narrative: Patient is a 43 year old assigned female at with a history of GERD and anxiety presenting to the emergency department today with body aches, a sore throat, and abdominal pain. Patient states that over the last day she has had a sore throat, body aches, and abdominal pain. Patient denies any dizziness, lightheadedness, nausea, vomiting, fever, chills, blurry vision, double vision, loss of vision, chest pain, difficulty breathing, shortness of breath, back pain, night sweats, pain with urination, increased urinary frequency, increased urinary urgency, blood in her urine or stool, syncope or a near syncopal episode, recent trauma or falls, bowel incontinence, bladder incontinence, or any other complaints at this time. Relieving factors: none Exacerbating factors: none Associated symptoms: denies other symptoms Treatments prior to arrival: NSAID and other (Tylenol) Related Data Home Medications ?Medication ?Instructions ?Recorded ?Confirmed triamcinolone acetonide 0.1 % 1 appl topical DAILY PRN Rash 06/27/24 06/27/24 lotion Previous Rx's ?Medication ?Instructions ?Recorded medroxyprogesterone 150 mg/mL 150 mg IM Q12W #1 mL 01/14/24 intramuscular suspension (Depo-Provera) Allergies Allergy/AdvReac Type Severity Reaction Status Date / Time hydroxyzine Allergy Mild Rash Verified 06/27/24 04:45 Review of Systems 2 Constitutional: Constitutional: Reports no additional constitutional complaints, Reports body ache(s), Denies chills, Denies fever(s) and Denies night sweats Eyes: Eyes: Reports no additional eye complaints, Denies blurry vision, Denies change in vision, Denies diplopia, Denies eye discharge, Denies loss of vision and Denies eye pain ENT: Denies dizziness and Reports sore throat Cardiovascular: Cardiovascular: Reports no additional cardiovascular complaints, Denies chest pain, Denies lightheadedness, Denies Loss of Consciousness and Denies dyspnea Respiratory: Respiratory: Reports no additional respiratory complaints and Denies dyspnea Gastrointestinal: Gastrointestinal: Reports no additional gastrointestinal complaints, Reports abdominal pain, Denies melena, Denies hematochezia, Denies change in bowel habits and Denies change in stool character Genitourinary: Genitourinary: Denies hematuria, Denies urinary frequency, Denies dysuria, Denies urinary incontinence, Denies urinary hesitancy and Denies urinary urgency Musculoskeletal: Musculoskeletal: Reports no additional musculoskeletal complaints, Denies numbness and Denies tingling Neurologic: Denies dizziness, Denies loss of vision, Denies numbness and Denies tingling Psychiatric: Psychiatric: Reports no additional psychiatric complaints Endocrine: Endocrine: Reports no additional endocrine complaints Hematologic/Lymphatic: Hematologic/Lymphatic: Reports no additional hematologic/lymphatic complaints Allergic/Immunologic: Allergic/Immunologic: Reports no additional allergic/immunologic complaints PMFSH Past Medical History Attestation statement: The following information was validated with the patient. Source: old records reviewed and nursing notes reviewed Medical History Facial paralysis/Ona palsy Surgical History Hx of cholecystectomy Hx of appendectomy Family History Family History Mother Liver cancer Social History Social History Household Members Other:: daughter Housing: House Are you a primary medical care evaluation specialist to a significant other at home: No Do you presently have visiting nurse or other home services: No Alcohol intake: current Alcohol intake frequency: holidays/special occasions only Patient Tobacco Use Status: Never used Tobacco Smoked in Last 30 Days: No e-Cigarette/Vaping Use: Never Used Second Hand Smoke Exposure: No Use of substances other than those prescribed or required for medical reasons: No Advance Directives: No Advance Directives Information Provided: No Patient : No service: No Current occupational status: employed Current occupation: [employer] Gender identity: Female Cognitive needs: No Hearing needs: No Vision needs: No Physical Exam ED Vital Signs: Vital Signs - 24 hr 06/27/24 04:45 06/27/24 05:50 06/27/24 05:50 Temperature 99.1 F 103.5 F H Pulse Rate 18 L 138 H Respiratory Rate 18 32 H Blood Pressure 122/73 120/63 Pulse Oximetry 96 94 98 Oxygen Delivery Method Room Air Room Air Room Air 06/27/24 06:35 06/27/24 06:43 06/27/24 07:02 Temperature Pulse Rate 124 H 119 H 113 H Respiratory Rate 19 20 32 H Blood Pressure 101/51 L 99/53 L 99/48 L Pulse Oximetry 98 94 94 Oxygen Delivery Method Room Air Room Air Room Air 06/27/24 07:19 06/27/24 07:55 06/27/24 08:27 Temperature 98.7 F Pulse Rate 112 H 111 H 109 H Respiratory Rate 29 H 30 H 18 Blood Pressure 90/40 L 103/59 L 98/53 L Pulse Oximetry 95 95 98 Oxygen Delivery Method Room Air Room Air Room Air 06/27/24 08:51 06/27/24 09:17 06/27/24 09:35 Temperature 98.3 F Pulse Rate 109 H 110 H 114 H Respiratory Rate 15 30 H Blood Pressure 88/48 L 100/53 L 120/62 Pulse Oximetry 96 98 Oxygen Delivery Method Room Air Room Air 06/27/24 09:50 06/27/24 09:50 06/27/24 10:38 Temperature Pulse Rate 103 H 103 H 117 H Respiratory Rate 30 H Blood Pressure 119/72 119/72 89/57 L Pulse Oximetry 99 Oxygen Delivery Method Room Air 06/27/24 10:44 06/27/24 11:58 06/27/24 12:02 Temperature Pulse Rate 108 H 109 H 111 H Respiratory Rate 18 Blood Pressure 89/57 L 118/57 L 118/57 L Pulse Oximetry 98 Oxygen Delivery Method Room Air 06/27/24 12:09 06/27/24 13:41 06/27/24 13:54 Temperature Pulse Rate 113 H 121 H 125 H Respiratory Rate 26 H 21 H 18 Blood Pressure 125/70 94/63 94/63 Pulse Oximetry 97 97 Oxygen Delivery Method Room Air Room Air 06/27/24 14:21 06/27/24 14:27 Temperature 99.9 F Pulse Rate 112 H 120 H Respiratory Rate 22 H Blood Pressure 106/54 L 121/63 Pulse Oximetry 95 Oxygen Delivery Method Room Air BMI result Body Mass Index 40.0 Const General: cooperative, no acute distress, alert and awake Nutritional Appearance: well nourished Orientation/consciousness: patient oriented x3 Limitations: no limitations HENMT Head: Yes normal to inspection and Yes atraumatic Ears: hearing grossly normal bilaterally and external ears normal General nose exam: Normal external nose present, no nasal discharge noted and no epistaxis Face and sinus: Yes normal facial exam, No abrasion and No laceration Mouth: Normal oral and palatal mucosa present, no drooling and no muffled voice Eyes General: appearance normal, both eyes and all related structures Periorbital: periorbital findings normal Eyelids: Yes eyelids normal Conjunctivae: conjunctivae normal Pupils: Equal, round and reactive pupils present EOM: EOMs intact bilaterally Neck Neck: Yes normal visual inspection, Yes full ROM and Yes no lymphadenopathy Chest Chest palpation & inspection: normal inspection of the chest Resp Effort & Inspection: normal respiratory effort and able to speak in complete sentences Cardio Rate: tachycardic Rhythm: regular rhythm GI Inspection: Yes normal to inspection Neuro General: patient oriented x3 and moves all extremities Cranial nerves: Yes Equal, round and reactive pupils present Cognition (Neuro): normal cognition Extrem General: Yes normal to inspection, Yes full ROM and Yes capillary refill normal Psych Appearance: grossly normal Mental Status: mental status grossly normal Affect: normal affect Attitude: cooperative Thought process: Normal thought process present Thought content: Normal thought content present Insight: Good insight present (Psych) Medications Administered Generic Name Dose Route Start Last Admin Trade Name Freq PRN Reason Stop Dose Admin Norepinephrine Bitartrate 8 mg in 250 mls @ 0 mls/hr 06/27/24 09:15 06/27/24 12:02 Levophed IVCONT 0 mcg/kg/min .Q0M OLIVIER 0 mls/hr Titration Protocol Per Protocol Discontinued Medications Generic Name Dose Route Start Last Admin Trade Name Freq PRN Reason Stop Dose Admin Acetaminophen 650 mg 06/27/24 06:18 06/27/24 06:30 Acetaminophen 325 Mg Tablet PO 06/27/24 06:19 650 mg ONCE ONE Administration Ceftriaxone Sodium 1 gm 06/27/24 06:17 06/27/24 06:30 Ceftriaxone Sodium 1 Gm Vial IVPUSH 06/27/24 06:18 1 gm ONCE ONE Administration Sodium Chloride 2,600 mls @ 2,600 mls/hr 06/27/24 06:17 06/27/24 08:26 Ns IV 06/27/24 07:16 Infused .Q1H STA Infusion Lactated Ringer's 1,000 mls @ 999 mls/hr 06/27/24 09:00 06/27/24 09:06 Lr IV 06/27/24 10:00 999 mls/hr .Q1H1M OLIVIER Administration Sodium Chloride 1,000 mls @ 999 mls/hr 06/27/24 12:15 06/27/24 12:12 Ns IV 06/27/24 13:15 999 mls/hr .Q1H1M OLIVIER Administration Iohexol 85 ml 06/27/24 09:30 06/27/24 09:31 Iohexol 350 Mg/Ml 100 Ml Infus..Btl IV 06/27/24 09:31 85 ml ONCE ONE Administration Medical Decision Making Medical Decision Making [facility] Narrative: Patient is a 43 year old assigned female at with a history of GERD and anxiety presenting to the emergency department today with body aches, a sore throat, and abdominal pain. Patient's physical exam showed a tachycardic individual but otherwise unremarkable / non toxic appearing. Patient's blood work showed an elevated WBC count of 18.2 and an initial lactic acid of 2.1 with a repeat of 1.8. Patient's urine showed no acute process. Patient's chest x-ray and abdomen/pelvis CT showed no acute process. Patient's clinical presentation and work up is concerning for sepsis (@0856). Patient was given an IV fluid bolus of 30mg/kg of NS for a total of 2,600ml and a gram of ceftriaxone. Patient had multiple episodes of hypotension while in the department. Patient was started on levophed and given 1 liter of LR. Patient's blood pressure improved and the levophed was stopped. Patient was off the levophed for a few minutes while she finished her liter of LR and she became hypotensive again - requiring the levophed to be restarted. I spoke to the ICU attending who recommended giving another liter of NS and stopping the levophed. Patient was given another liter of NS and the levophed was stopped. Patient's blood pressures have stablized. Pilot Control Operator recommended admission to the hospitalist service. Spoke to the hospitalist team who agreed to admission. I explained my physical exam findings as well as all test results to the patient. I answered all questions asked by the patient. Patient verbalized agreement and understanding with this treatment plan and admission. Differential Diagnosis Differential Diagnoses: The differential diagnosis associated with the presentation includes Sepsis of unknown origin Viral illness Abdominal pain Leukocytosis PNA Hypotension Admission/Observation Consideration of admission/observation: Escalation of care including admission/observation considered Patient admitted to the ICU Consult Healthcare Provider Management of the patient was discussed with: Van Owner Operator (spoke to the can carrier as noted in the MDM Rationale portion of this note) Lab Data [facility] Lab Attestation statement: I reviewed the patient's lab results. My interpretation of these results are in the MDM Rationale portion of this note. 06/27/24 06:27 06/27/24 06:27 Labs: Lab Results 06/27/24 06/27/24 06/27/24 Range/Units 04:53 06:27 08:50 WBC 18.2 H (4.8-10.8) X10*3/uL RBC 4.37 (4.20-5.50) X10*6/uL Hgb 12.7 (12.0-16.0) g/dl Hct 37.4 (37.0-47.0) % MCV 85.6 (80.0-98.0) fL MCH 29.1 (27.0-33.0) pg MCHC 34.0 (31.0-35.0) g/dl RDW 13.4 (11.0-16.0) % Plt Count 369 (160-400) X10*3/uL MPV 9.0 L (9.4-12.3) fL Immature Gran % (Auto) 0.4 (0.0-0.4) % Neut % (Auto) 88.7 H (45-73) % Lymph % (Auto) 6.4 L (20-40) % [place] % (Auto) 4.2 (2-11) % Eos % (Auto) 0.1 (0-4) % Baso % (Auto) 0.2 (0-2) % Lymph # (Auto) 1.2 (1.2-4.9) X10*3/uL [place] # (Auto) 0.8 (0.1-1.2) X10*3/uL Eos # (Auto) 0.0 (0.0-0.4) X10*3/uL Baso # (Auto) 0.0 (0.0-0.2) X10*3/uL Abs Immat Gran (auto) 0.08 H (0.00-0.03) X10*3/uL Absolute Neuts (auto) 16.1 H (2.0-8.3) x10*3/uL Absolute Nucleated RBC 0.000 (0.0-0.012) X10*3/uL Nucleated RBC % (auto) 0.0 (0.0-0.2) /100WBC Sodium 136 (135-145) mmol/L Potassium 3.8 (3.3-5.1) mmol/L Chloride 105 (96-108) mmol/L Carbon Dioxide 20 L (22-29) mmol/L Anion Gap 15 (12-20) BUN 8 L (9-16) mg/dL Creatinine 0.69 (0.5-1.4) mg/dL Estim Creat Clear Calc 101.5 Estimated GFR > 60 Random Glucose 127 H (60-115) mg/dL Lactic Acid 2.1 H* (0.5-2.0) mmol/L Lactic Acid F/U @ 2Hr 1.8 (0.5-2.0) mmol/L Calcium 9.3 (8.4-10.2) mg/dL Total Bilirubin 0.5 (0.0-1.0) mg/dL AST 28 (5-31) U/L ALT 42 H (0-31) U/L Alkaline Phosphatase 60 (39-117) U/L Total Protein 7.6 (6.5-8.0) g/dL Albumin 4.2 (3.5-5.0) g/dL Lipase 13 (8-78) U/L Urine Color Urine Appearance Urine pH (5.0-9.0) Ur Specific Gepp (1.005-1.025) Urine Protein (Neg-Trace) mg/dL Urine Glucose (UA) (Negative) mg/dL Urine Ketones (Negative) mg/dL Urine Blood (Negative) Urine Nitrite (Negative) Ur Leukocyte Esterase (Negative) Urine RBC (0-2) /HPF Urine WBC (0-5) /HPF Ur Squamous Epith Cells (0-2) /HPF Urine Bacteria (None Seen) Hyaline Casts (0-2) /LPF Respiratory Panel [place]uin Adenovirus (Rapid PCR) (Not Detect.) B.pert (TEM-PCR) (Not Detect.) B.parapertussis DNA PCR (Not Detect.) C. pneumoniae DNA (PCR) (Not Detect.) Coronavirus OC43 (PCR) (Not Detect.) Coronavirus HKU1 (PCR) (Not Detect.) Coronavirus 229E (PCR) (Not Detect.) Coronavirus NL63 (PCR) (Not Detect.) Human Metapneumovir PCR (Not Detect.) Influenza A (RT-PCR) (Not Detect.) Influenza Type A (PCR) NEGATIVE (Negative) Influenza B (RT-PCR) (Not Detect.) Influenza Type B (PCR) NEGATIVE (Negative) M. pneumoniae (PCR) (Not Detect.) Parainfluenza 1 (PCR) (Not Detect.) Parainfluenza 2 (PCR) (Not Detect.) Parainfluenza 3 (PCR) (Not Detect.) Parainfluenza 4 (PCR) (Not Detect.) RSV (PCR) (Not Detect.) RSV RNA Qual (PCR) NEGATIVE (Negative) Entero/Rhino (PCR) (Not Detect.) SARS-CoV-2 RNA (RT-PCR) NEGATIVE (Negative) S. pyogenes GrpA BENNY Negative (Negative) 06/27/24 06/27/24 Range/Units 09:21 10:34 WBC (4.8-10.8) X10*3/uL RBC (4.20-5.50) X10*6/uL Hgb (12.0-16.0) g/dl Hct (37.0-47.0) % MCV (80.0-98.0) fL MCH (27.0-33.0) pg MCHC (31.0-35.0) g/dl RDW (11.0-16.0) % Plt Count (160-400) X10*3/uL MPV (9.4-12.3) fL Immature Gran % (Auto) (0.0-0.4) % Neut % (Auto) (45-73) % Lymph % (Auto) (20-40) % [place] % (Auto) (2-11) % Eos % (Auto) (0-4) % Baso % (Auto) (0-2) % Lymph # (Auto) (1.2-4.9) X10*3/uL [place] # (Auto) (0.1-1.2) X10*3/uL Eos # (Auto) (0.0-0.4) X10*3/uL Baso # (Auto) (0.0-0.2) X10*3/uL Abs Immat Gran (auto) (0.00-0.03) X10*3/uL Absolute Neuts (auto) (2.0-8.3) x10*3/uL Absolute Nucleated RBC (0.0-0.012) X10*3/uL Nucleated RBC % (auto) (0.0-0.2) /100WBC Sodium (135-145) mmol/L Potassium (3.3-5.1) mmol/L Chloride (96-108) mmol/L Carbon Dioxide (22-29) mmol/L Anion Gap (12-20) BUN (9-16) mg/dL Creatinine (0.5-1.4) mg/dL Estim Creat Clear Calc Estimated GFR Random Glucose (60-115) mg/dL Lactic Acid (0.5-2.0) mmol/L Lactic Acid F/U @ 2Hr (0.5-2.0) mmol/L Calcium (8.4-10.2) mg/dL Total Bilirubin (0.0-1.0) mg/dL AST (5-31) U/L ALT (0-31) U/L Alkaline Phosphatase (39-117) U/L Total Protein (6.5-8.0) g/dL Albumin (3.5-5.0) g/dL Lipase (8-78) U/L Urine Color Yellow Urine Appearance Clear Urine pH 6.0 (5.0-9.0) Ur Specific Gepp 1.010 (1.005-1.025) Urine Protein Negative (Neg-Trace) mg/dL Urine Glucose (UA) Negative (Negative) mg/dL Urine Ketones Negative (Negative) mg/dL Urine Blood Small (1+) H (Negative) Urine Nitrite Negative (Negative) Ur Leukocyte Esterase Negative (Negative) Urine RBC 3-5 H (0-2) /HPF Urine WBC 0-5 (0-5) /HPF Ur Squamous Epith Cells 3-5 (0-2) /HPF Urine Bacteria None Seen (None Seen) Hyaline Casts 0-2 (0-2) /LPF Respiratory Panel [place] See Note Adenovirus (Rapid PCR) Not Detected (Not Detect.) B.pert (TEM-PCR) Not Detected (Not Detect.) B.parapertussis DNA PCR Not Detected (Not Detect.) C. pneumoniae DNA (PCR) Not Detected (Not Detect.) Coronavirus OC43 (PCR) Not Detected (Not Detect.) Coronavirus HKU1 (PCR) Not Detected (Not Detect.) Coronavirus 229E (PCR) Not Detected (Not Detect.) Coronavirus NL63 (PCR) Not Detected (Not Detect.) Human Metapneumovir PCR Not Detected (Not Detect.) Influenza A (RT-PCR) Not Detected (Not Detect.) Influenza Type A (PCR) (Negative) Influenza B (RT-PCR) Not Detected (Not Detect.) Influenza Type B (PCR) (Negative) M. pneumoniae (PCR) Not Detected (Not Detect.) Parainfluenza 1 (PCR) Not Detected (Not Detect.) Parainfluenza 2 (PCR) Not Detected (Not Detect.) Parainfluenza 3 (PCR) Not Detected (Not Detect.) Parainfluenza 4 (PCR) Not Detected (Not Detect.) RSV (PCR) Not Detected (Not Detect.) RSV RNA Qual (PCR) (Negative) Entero/Rhino (PCR) Detected A (Not Detect.) SARS-CoV-2 RNA (RT-PCR) Not Detected (Negative) S. pyogenes GrpA BENNY (Negative) Independent Interpretation I performed an independent interpretation of an: Plain X-Ray and CT Scan Interpretation: My interpretation is in agreement with the radiologist's impression of these imaging studies. L EXAMINATION: XR CHEST CLINICAL INFORMATION: dizziness, sob COMPARISON: None available. TECHNIQUE: 2 views of the chest were obtained. FINDINGS: No significant abnormality is noted involving the heart, lungs, mediastinum, bony thorax or soft tissues. XR/XR chest 2V IMPRESSION: No acute cardiopulmonary disease. Electronically signed by: Wilian Meyer MD 06/27/2024 08:34 AM EST Dictated By: Wilian Meyer MD Signed By: Electronically signed by Wilian Meyer MD 06/27/24 0834 EXAMINATION: CT ABDOMEN AND PELVIS WITH CONTRAST CLINICAL INFORMATION: Abdominal pain. COMPARISON: None available. TECHNIQUE: Multidetector volumetric images were obtained from the superior aspect of the liver through the pubic symphysis following administration 85 mL of Omnipaque 350 intravenous contrast without reported immediate complications. Sagittal and coronal reformatted images were obtained on the technologist's workstation. Oral contrast: No This CT examination was performed using dose optimization techniques as appropriate, variously including the following: *Automated exposure control *Adjustment of mA and/or kV according to patient size (this includes techniques or standardized protocols for targeted exams where dose is matched to indication/reason for exam; i.e. extremities or head) *Use of iterative reconstruction technique DLP: 807 mGy-cm FINDINGS: Limited by patient's breathing motion artifact. LUNG BASES: Pulmonary patchy groundglass, lung bases. LIVER, GALLBLADDER, AND BILIARY TREE: Liver measures 16 cm with decreased enhancement pattern. Main portal vein, hepatic veins and intrahepatic portion of the IVC are patent. No intrahepatic biliary ductal dilatation.. Gallbladder is absent. Common bile duct measures 4 mm. PANCREAS: No focal pancreatic mass. No peripancreatic fluid collection. No main pancreatic ductal dilatation. SPLEEN: 7 cm. No focal mass. ADRENAL GLANDS: No nodular lesions. KIDNEYS AND URETERS: No gross renal mass or hydronephrosis. BLADDER: Fluid-filled. GASTROINTESTINAL TRACT: Abundant stool. No intestinal obstruction pattern. No ascites. No pneumoperitoneum. No pneumatosis intestinalis. No pericecal edema pattern. ABDOMINAL WALL: Small fat-containing umbilical hernia. Diastases in the periumbilical region of the abdominal rectus muscles and protrusion of the intra-abdominal contents. LYMPH NODES: No gross lymphadenopathy. VASCULAR: No aneurysm or dissection, abdominal aorta. PELVIC VISCERA: No gross masses in the adnexa. OSSEOUS STRUCTURES: No acute fracture or gross listhesis in the axial skeleton. No lytic or blastic lesions. Bony pelvis and coxofemoral joints are intact. CT/CT abdomen pelvis w IV con IMPRESSION: Small fat-containing umbilical hernia and diastases abdominal rectus muscles with protrusion of the intra-abdominal contents. Hepatic steatosis. Fleischner guidelines were followed. Electronically signed by: Greg oRthman MD 06/27/2024 09:56 AM EST Dictated By: Greg Calderon MD Signed By: Electronically signed by Greg Krishna MD 06/27/24 0956 Radiology Impression Discussion of test interpretation with radiology: I have reviewed the radiologist's reading. Critical Care Time Critical Care Time Critical Care Time: Yes Total Critical Care Time: 58 Attestation: I spent 58 minutes of Critical Care Time with this patient. This does not include time spent on separately reported billable procedures. Discharge Plan Discharge Clinical Impression: Abdominal pain, Leukocytosis, Sepsis Patient Disposition: Admitted As Inpatient
[2024-06-27 06:50] LABS: Lactic Acid 2.1 mmol/L (0.5-2.0)
[2024-06-27 06:57] LABS: Alanine Aminotransferase 42 U/L (0-31); Albumin Level 4.2 g/dL (3.5-5.0); Alkaline Phosphatase 60 U/L (39-117); Anion Gap 15 (12-20); Aspartate Amino Transferase 28 U/L (5-31); Bilirubin Total 0.5 mg/dL (0.0-1.0); Blood Urea Nitrogen 8 mg/dL (9-16); Calcium 9.3 mg/dL (8.4-10.2); Carbon Dioxide 20 mmol/L (22-29); Chloride 105 mmol/L (96-108); Creatinine Clr Calc Pharmacy 101.5; Estimated Glomerular Filt Rate > 60; Glucose Random 127 mg/dL (60-115); Lipase 13 U/L (8-78); Potassium 3.8 mmol/L (3.3-5.1); Sodium 136 mmol/L (135-145); Total Protein 7.6 g/dL (6.5-8.0)
--- NOTE | 2024-06-27 07:54 | PC.NURSE ---
placed IVF on pressure bags to complete Sepsis infusion bolus
--- NOTE | 2024-06-27 08:05 | PC.NURSE ---
pt at xray at this time.
[2024-06-27 08:33] LABS: Reflex Lactate? Lactic Acid Added
[2024-06-27] MEDS: Lactated Ringers 1,000 ML 999 ML IV (09:06)
[2024-06-27 09:09] LABS: ~Lactic Acid-LAB USE ONLY 1.8 mmol/L (0.5-2.0)
[2024-06-27] MEDS: Norepinephrine Bitartrate/D5W 8 MG/250 ML PLAST..BAG 8.43 MG IVCONT (09:17)
[2024-06-27 09:27] LABS: Appearance Urine Clear; Color Urine Yellow; Glucose Urine UA Negative (Negative); Leukocyte Esterase Urine Negative (Negative); Nitrite Urine Negative (Negative); UMIC TRIGGER UACC YES; Urine Blood Small (1+) (Negative); Urine Ketones Negative (Negative); Urine Protein Negative (Neg-Trace)
[2024-06-27] MEDS: iohexoL 350 MG/ML 100 ML INFUS..BTL 85 ML IV (09:31)
--- NOTE | 2024-06-27 09:35 | PC.NURSE ---
per Aida mott for Levophed to infuse through a peripheral 18G at this time
[2024-06-27 09:43] LABS: Bacteria Urine None Seen (None Seen); Hyaline Casts Urine 0-2 /LPF (0-2); WBC Urine 0-5 /HPF (0-5)
--- NOTE | 2024-06-27 10:46 | PC.NURSE ---
pt BP low 87/57 - informed Aida CRUMP and plan to restart Levo
--- NOTE | 2024-06-27 11:58 | PC.NURSE ---
ultrasound at bedside. NAD. No ectopy on monitor. skin pwd. unlabored resp
--- NOTE | 2024-06-27 12:02 | PC.NURSE ---
right IV was infultrated with NorEpi. Medside verbal order from cardiology to stop NorEpi and hang 1L NS.
[2024-06-27] MEDS: 0.9 % Sodium Chloride 1,000 ML 999 ML IV (12:12)
--- NOTE | 2024-06-27 13:42 | PHA.MEDREC ---
Pharmacy Consult ? Medication Reconciliation Pharmacy has completed the medication reconciliation. Spoke to patient to confirm med list. Patient states she is no longer taking Famotidine 10 mg. Patient confirmed Medroxyprogesterone 150mg /ML q12 weeks next dose is in July.
--- NOTE | 2024-06-27 13:47 | PHA.MEDREC ---
Addendum entered by Can Tripp 06/27/24 13:49: reviewed Original Note: Pharmacy Consult ? Medication Reconciliation Pharmacy has completed the medication reconciliation. Spoke to patient through filler sifter helper service (Vianey) to confirm med list. Patient states she is no longer taking Famotidine 10 mg. Patient confirmed Medroxyprogesterone 150mg /ML q12 weeks next dose is in July.
[2024-06-27 14:14] LABS: Adenovirus PCR Not Detected (Not Detect.); Bordetella parapertussis PCR Not Detected (Not Detect.); Bordetella pertussis PCR Not Detected (Not Detect.); Chlamydia pneumoniae PCR Not Detected (Not Detect.); Coronavirus 229E PCR Not Detected (Not Detect.); Coronavirus HKU1 PCR Not Detected (Not Detect.); Coronavirus NL63 PCR Not Detected (Not Detect.); Coronavirus OC43 PCR Not Detected (Not Detect.); Human metapneumovirus PCR Not Detected (Not Detect.); Influenza A PCR Not Detected (Not Detect.); Influenza B PCR Not Detected (Not Detect.); Mycoplasma pneumoniae PCR Not Detected (Not Detect.); Parainfluenza 1 PCR Not Detected (Not Detect.); Parainfluenza 2 PCR Not Detected (Not Detect.); Parainfluenza 3 PCR Not Detected (Not Detect.); Parainfluenza 4 PCR Not Detected (Not Detect.); RSV PCR Not Detected (Not Detect.); Rhino/Enterovirus PCR Detected (Not Detect.)
[2024-06-27 14:17] LABS: SARS-CoV-2 PCR Not Detected (Not Detect.)
--- NOTE | 2024-06-27 14:33 | PM.IMHP ---
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 She reports having sore throat and congestion in her nose for two days with decrease oral intake and feeling chills. No chest pain, palpitations, SOB, nausea, vomiting, diarrhea or urinary symptoms. In ED she was found to be hypotensive requiring IVF boluses and LEvophed with fair response. Negative CXR, CT chest and abd, Neg UA. Tested positive for Rhino\Entero virus. Will be admitted for further management and work up. 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 Family History Mother Liver cancer Surgical History Hx of cholecystectomy Hx of appendectomy Social History Household Members Other:: daughter Housing: House Are you a primary healthcare account manager to a significant other at home: No Do you presently have visiting nurse or other home services: No Alcohol intake: current Alcohol intake frequency: holidays/special occasions only Patient Tobacco Use Status: Never used Tobacco Smoked in Last 30 Days: No e-Cigarette/Vaping Use: Never Used Second Hand Smoke Exposure: No Use of substances other than those prescribed or required for medical reasons: No Advance Directives: No Advance Directives Information Provided: No Nutrition Risks: No Nutritional Risk Patient : No service: No Current occupational status: employed Current occupation: [employer] Gender identity: Female Cognitive needs: No Hearing needs: No Vision needs: No Meds Allergies Allergy/AdvReac Type Severity Reaction Status Date / Time hydroxyzine Allergy Mild Rash Verified 06/27/24 04:45 Active Medications: Current Medications Norepinephrine Bitartrate (Levophed) 8 mg in 250 mls @ 0 mls/hr IVCONT .Q0M OLIVIER; Protocol Last Titration: 06/27/24 12:02 Dose: 0 mcg/kg/min, 0 mls/hr Home Medications ?Medication ?Instructions ?Recorded ?Confirmed ?Last Taken ?Type triamcinolone acetonide 0.1 % 1 appl topical DAILY PRN Rash 06/27/24 06/27/24 Unknown History lotion Physical Exam Vital Signs and Narrative: Vital Signs: Last Vital Signs Temp 99.9 F 06/27/24 14:27 Pulse 120 H 06/27/24 14:27 Resp 22 H 06/27/24 14:27 BP 121/63 06/27/24 14:27 Pulse Ox 95 06/27/24 14:27 O2 Del Method Room Air 06/27/24 14:27 BMI result Body Mass Index 40.0 Const: Other: Constitutional : Awake, interactive, not in distress Neck : Normal inspection, Supple, enlarged tonsils with mild tenderness Cardiovascular : RRR, no JVP, no lower extremity edema Respiratory : good bilateral air entry, no crackles, wheezes or rhonchi Gastrointestinal: soft, lax, Normal bowel sounds, Non tender Skin : Warm, Dry Neurological : Alert & oriented x3, No focal deficit Results Labs 06/27/24 06:27 06/27/24 06:27 Labs: Laboratory Results - last 24 hr 06/27/24 06/27/24 06/27/24 04:53 06:27 08:50 MCV 85.6 MCH 29.1 MCHC 34.0 RDW 13.4 Plt Count 369 MPV 9.0 L Immature Gran % (Auto) 0.4 Neut % (Auto) 88.7 H Lymph % (Auto) 6.4 L [place] % (Auto) 4.2 Eos % (Auto) 0.1 Baso % (Auto) 0.2 Lymph # (Auto) 1.2 [place] # (Auto) 0.8 Eos # (Auto) 0.0 Baso # (Auto) 0.0 Abs Immat Gran (auto) 0.08 H Absolute Neuts (auto) 16.1 H Absolute Nucleated RBC 0.000 Nucleated RBC % (auto) 0.0 Anion Gap 15 Estim Creat Clear Calc 101.5 Estimated GFR > 60 Random Glucose 127 H Lactic Acid 2.1 H* Lactic Acid F/U @ 2Hr 1.8 Calcium 9.3 Total Bilirubin 0.5 AST 28 ALT 42 H Alkaline Phosphatase 60 Total Protein 7.6 Albumin 4.2 Lipase 13 Urine Color Urine Appearance Urine pH Ur Specific [place] Urine Protein Urine Glucose (UA) Urine Ketones Urine Blood Urine Nitrite Ur Leukocyte Esterase Urine RBC Urine WBC Ur Squamous Epith Cells Urine Bacteria Hyaline Casts Respiratory Panel [place] Adenovirus (Rapid PCR) B.pert (TEM-PCR) B.parapertussis DNA PCR C. pneumoniae DNA (PCR) Coronavirus OC43 (PCR) Coronavirus HKU1 (PCR) Coronavirus 229E (PCR) Coronavirus NL63 (PCR) Human Metapneumovir PCR Influenza A (RT-PCR) Influenza Type A (PCR) NEGATIVE Influenza B (RT-PCR) Influenza Type B (PCR) NEGATIVE M. pneumoniae (PCR) Parainfluenza 1 (PCR) Parainfluenza 2 (PCR) Parainfluenza 3 (PCR) Parainfluenza 4 (PCR) RSV (PCR) RSV RNA Qual (PCR) NEGATIVE Entero/Rhino (PCR) SARS-CoV-2 RNA (RT-PCR) NEGATIVE S. pyogenes GrpA BENNY Negative 06/27/24 06/27/24 09:21 10:34 MCV MCH MCHC RDW Plt Count MPV Immature Gran % (Auto) Neut % (Auto) Lymph % (Auto) [place] % (Auto) Eos % (Auto) Baso % (Auto) Lymph # (Auto) [place] # (Auto) Eos # (Auto) Baso # (Auto) Abs Immat Gran (auto) Absolute Neuts (auto) Absolute Nucleated RBC Nucleated RBC % (auto) Anion Gap Estim Creat Clear Calc Estimated GFR Random Glucose Lactic Acid Lactic Acid F/U @ 2Hr Calcium Total Bilirubin AST ALT Alkaline Phosphatase Total Protein Albumin Lipase Urine Color Yellow Urine Appearance Clear Urine pH 6.0 Ur Specific [place] 1.010 Urine Protein Negative Urine Glucose (UA) Negative Urine Ketones Negative Urine Blood Small (1+) H Urine Nitrite Negative Ur Leukocyte Esterase Negative Urine RBC 3-5 H Urine WBC 0-5 Ur Squamous Epith Cells 3-5 Urine Bacteria None Seen Hyaline Casts 0-2 Respiratory Panel [place] See Note Adenovirus (Rapid PCR) Not Detected B.pert (TEM-PCR) Not Detected B.parapertussis DNA PCR Not Detected C. pneumoniae DNA (PCR) Not Detected Coronavirus OC43 (PCR) Not Detected Coronavirus HKU1 (PCR) Not Detected Coronavirus 229E (PCR) Not Detected Coronavirus NL63 (PCR) Not Detected Human Metapneumovir PCR Not Detected Influenza A (RT-PCR) Not Detected Influenza Type A (PCR) Influenza B (RT-PCR) Not Detected Influenza Type B (PCR) M. pneumoniae (PCR) Not Detected Parainfluenza 1 (PCR) Not Detected Parainfluenza 2 (PCR) Not Detected Parainfluenza 3 (PCR) Not Detected Parainfluenza 4 (PCR) Not Detected RSV (PCR) Not Detected RSV RNA Qual (PCR) Entero/Rhino (PCR) Detected A SARS-CoV-2 RNA (RT-PCR) Not Detected S. pyogenes GrpA BENNY Imaging Radiologist's Impressions: Impressions Chest X-Ray 06/27/24 08:00 IMPRESSION: No acute cardiopulmonary disease. Electronically signed by: Wilian Meyer MD 06/27/2024 08:34 AM EST RP Abdomen/Pelvis CT 06/27/24 09:25 IMPRESSION: Small fat-containing umbilical hernia and diastases abdominal rectus muscles with protrusion of the intra-abdominal contents. Hepatic steatosis. Fleischner guidelines were followed. 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 Acute viral sepsis complicated with hypotension Hypotension resolved post IVF and Levophed CXR, CT , UA negative for source of infection Resp panel +ve for Rhino\Entero virus continue IVF maintenance Tylenol for pain nasal decongistant received Ceftriaxone, hold on more for now Lactic acidosis secondary to dehydration from viral sepsis resolved with IVF DVT PPx Lovenox The patient will likely need 2 overnight hospital stay pending blood cultures and hypotension resolution Quality Stroke Does the patient have a stroke diagnosis?: No VTE Prior VTE?: No VTE Risk Level:: Medical - moderate - high VTE Device Contraindication: Treatment Not Indicated VTE Drug Contraindication: N/A - Med Ordered
[2024-06-27] MEDS: Enoxaparin Sodium 40 MG/0.4 ML SYRINGE SUBCUT (15:49)
[2024-06-27] MEDS: Lactated Ringers 1,000 ML 100 ML IVCONT (15:49)
[2024-06-27] MEDS: 0.9 % Sodium Chloride Flush 3 ML SYRINGE IVFLUSH ×2 (15:49→20:30)
[2024-06-27] MEDS: Ibuprofen 400 MG TABLET PO (18:08)
[2024-06-27] MEDS: Omeprazole 20 MG CAPSULE.DR PO (18:08)
[2024-06-28] MEDS: Lactated Ringers 1,000 ML 100 ML IVCONT (01:59)
[2024-06-28 04:00] VITALS: BP 99/57; PULSE 86; RESP 18; TEMP 36.3; O2SAT 95
[2024-06-28] MEDS: Omeprazole 20 MG CAPSULE.DR PO (05:38)
[2024-06-28 06:48] LABS: MANUAL DIFF FLAG NO
[2024-06-28 06:59] LABS: Basophils Absolute Auto 0.1 X10*3/uL (0.0-0.2); Basophils Percent Auto 0.4 % (0-2); Eosinophils Absolute Auto 0.1 X10*3/uL (0.0-0.4); Eosinophils Percent Auto 0.7 % (0-4); Hematocrit 34.5 % (37.0-47.0); Hemoglobin 11.4 g/dl (12.0-16.0); Imm Gran Abs Auto 0.07 X10*3/uL (0.00-0.03); Imm Gran Pct Auto 0.6 % (0.0-0.4); Lymphocytes Absolute Auto 1.8 X10*3/uL (1.2-4.9); Lymphocytes Percent Auto 15.2 % (20-40); Mean Corpuscular Hemoglobin 28.7 pg (27.0-33.0); Mean Corpuscular Volume 86.9 fL (80.0-98.0); Mean Platelet Volume 9.7 fL (9.4-12.3); Monocytes Absolute Auto 0.9 X10*3/uL (0.1-1.2); Monocytes Percent Auto 7.6 % (2-11); Neutrophils Absolute Auto 8.9 x10*3/uL (2.0-8.3); Neutrophils Percent Auto 75.5 % (45-73); Platelet Count 312 X10*3/uL (160-400); Red Blood Count 3.97 X10*6/uL (4.20-5.50); Red Cell Distribution Width 13.8 % (11.0-16.0); White Blood Count 11.7 X10*3/uL (4.8-10.8)
[2024-06-28 07:01] LABS: Anion Gap 13 (12-20); Blood Urea Nitrogen 6 mg/dL (9-16); Calcium 8.6 mg/dL (8.4-10.2); Carbon Dioxide 21 mmol/L (22-29); Chloride 110 mmol/L (96-108); Creatinine Clr Calc Pharmacy 124.3; Estimated Glomerular Filt Rate > 60; Glucose Random 102 mg/dL (60-115); Potassium 3.4 mmol/L (3.3-5.1); Sodium 141 mmol/L (135-145)
[2024-06-28 07:39] VITALS: BP 112/64; PULSE 99; RESP 18; TEMP 36.6; O2SAT 99
[2024-06-28] MEDS: Ibuprofen 400 MG TABLET PO (08:27)
--- NOTE | 2024-06-28 08:48 | PM.DS ---
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 She reports having sore throat and congestion in her nose for two days with decrease oral intake and feeling chills. No chest pain, palpitations, SOB, nausea, vomiting, diarrhea or urinary symptoms. In ED she was found to be hypotensive requiring IVF boluses and LEvophed with fair response. Negative CXR, CT chest and abd, Neg UA. Tested positive for Rhino\Entero virus. Will be admitted for further management and work up. hospital course: Patient was admitted for viral sepsis with hypotension due to rhino virus. Resolved with IV fluids. Symptoms significantly improved next day and will be discharged home on symptomatic management. For morbid obesity weight loss is recommended. Time Attestation Discharge Coordination Time (in mins): 33 Quality: Safe Use of Opioids Does Pt have an Active Cancer Diagnosis on the Problem List?: No Quality: Stroke Does the patient have a stroke diagnosis?: No Physical Exam Vital Signs: Vital Signs: Last Vital Signs Temp 97.9 F 06/28/24 07:39 Pulse 99 06/28/24 07:39 Resp 18 06/28/24 07:39 BP 112/64 06/28/24 07:39 Pulse Ox 99 06/28/24 07:39 O2 Del Method Room Air 06/28/24 07:39 BMI result Body Mass Index 40.5 General: AO X 3, no acute distress Resp: CTA bilateral, no accessory muscles used CVS: S1,S2,RRR GI: soft, non tender, non distended Neuro: motor grossly intact, alert Psych: appropriate affect, appropriate insight DS: Data Data Completed and Pending Labs on day of discharge: Laboratory Results - last 24 hr 06/27/24 06/27/24 06/27/24 08:50 09:21 10:34 WBC RBC Hgb Hct MCV MCH MCHC RDW Plt Count MPV Immature Gran % (Auto) Neut % (Auto) Lymph % (Auto) [place] % (Auto) Eos % (Auto) Baso % (Auto) Lymph # (Auto) [place] # (Auto) Eos # (Auto) Baso # (Auto) Abs Immat Gran (auto) Absolute Neuts (auto) Absolute Nucleated RBC Nucleated RBC % (auto) Sodium Potassium Chloride Carbon Dioxide Anion Gap BUN Creatinine Estim Creat Clear Calc Estimated GFR Random Glucose Lactic Acid F/U @ 2Hr 1.8 Calcium Urine Color Yellow Urine Appearance Clear Urine pH 6.0 Ur Specific [place] 1.010 Urine Protein Negative Urine Glucose (UA) Negative Urine Ketones Negative Urine Blood Small (1+) H Urine Nitrite Negative Ur Leukocyte Esterase Negative Urine RBC 3-5 H Urine WBC 0-5 Ur Squamous Epith Cells 3-5 Urine Bacteria None Seen Hyaline Casts 0-2 Respiratory Panel [place] See Note Adenovirus (Rapid PCR) Not Detected B.pert (TEM-PCR) Not Detected B.parapertussis DNA PCR Not Detected C. pneumoniae DNA (PCR) Not Detected Coronavirus OC43 (PCR) Not Detected Coronavirus HKU1 (PCR) Not Detected Coronavirus 229E (PCR) Not Detected Coronavirus NL63 (PCR) Not Detected Human Metapneumovir PCR Not Detected Influenza A (RT-PCR) Not Detected Influenza B (RT-PCR) Not Detected M. pneumoniae (PCR) Not Detected Parainfluenza 1 (PCR) Not Detected Parainfluenza 2 (PCR) Not Detected Parainfluenza 3 (PCR) Not Detected Parainfluenza 4 (PCR) Not Detected RSV (PCR) Not Detected Entero/Rhino (PCR) Detected A SARS-CoV-2 RNA (RT-PCR) Not Detected 06/28/24 05:51 WBC 11.7 H RBC 3.97 L Hgb 11.4 L Hct 34.5 L MCV 86.9 MCH 28.7 MCHC 33.0 RDW 13.8 Plt Count 312 MPV 9.7 Immature Gran % (Auto) 0.6 H Neut % (Auto) 75.5 H Lymph % (Auto) 15.2 L [place] % (Auto) 7.6 Eos % (Auto) 0.7 Baso % (Auto) 0.4 Lymph # (Auto) 1.8 [place] # (Auto) 0.9 Eos # (Auto) 0.1 Baso # (Auto) 0.1 Abs Immat Gran (auto) 0.07 H Absolute Neuts (auto) 8.9 H Absolute Nucleated RBC 0.000 Nucleated RBC % (auto) 0.0 Sodium 141 Potassium 3.4 Chloride 110 H Carbon Dioxide 21 L Anion Gap 13 BUN 6 L Creatinine 0.58 Estim Creat Clear Calc 124.3 Estimated GFR > 60 Random Glucose 102 Lactic Acid F/U @ 2Hr Calcium 8.6 D Urine Color Urine Appearance Urine pH Ur Specific [place] Urine Protein Urine Glucose (UA) Urine Ketones Urine Blood Urine Nitrite Ur Leukocyte Esterase Urine RBC Urine WBC Ur Squamous Epith Cells Urine Bacteria Hyaline Casts Respiratory Panel [place] Adenovirus (Rapid PCR) B.pert (TEM-PCR) B.parapertussis DNA PCR C. pneumoniae DNA (PCR) Coronavirus OC43 (PCR) Coronavirus HKU1 (PCR) Coronavirus 229E (PCR) Coronavirus NL63 (PCR) Human Metapneumovir PCR Influenza A (RT-PCR) Influenza B (RT-PCR) M. pneumoniae (PCR) Parainfluenza 1 (PCR) Parainfluenza 2 (PCR) Parainfluenza 3 (PCR) Parainfluenza 4 (PCR) RSV (PCR) Entero/Rhino (PCR) SARS-CoV-2 RNA (RT-PCR) Preliminary micro results at discharge 06/27/24 06:27 Blood Culture - Preliminary Blood - Venous No growth after 24 hours. 06/27/24 06:27 Blood Culture - Preliminary Blood - Venous No growth after 24 hours. Discharge Plan Discharge Anticipated Discharge Date/Time: 06/28/24 08:46 Patient Disposition: Home, Self-Care Discharge Diagnosis: rhinovirus Referrals: Velma Cardenas PA-C [Primary Care Provider] - 1 Week Discharge Medications: Continued medroxyprogesterone [Depo-Provera] 150 mg/mL suspension 150 mg IM Q12W Qty: 1 5RF Rx Instructions: Next dose Due in July 2024 triamcinolone acetonide 0.1 % lotion 1 appl topical DAILY PRN (Reason: Rash) Discharge Orders: Discharge Order (Routine); Ordered 06/28/24 Ordered By: Byron Resrtepo Diet: Advance to usual diet Activity on Discharge: As tolerated Stand Alone Forms: Patient Portal Discharge page Print Language: Romansh Care Plan Goals: recovery Health Concerns: rhinovirus Plan of Treatment: tylenol, ibuprofen as needed Assessment: see above
--- NOTE | 2024-06-28 08:52 | MHC.CM.PN ---
pt dcd home self care prior to being seen by cm
--- NOTE | 2024-06-28 10:24 | MHC.CM.PN ---
PT DCD HOME SELF CARE PRIOR TO BEING SEEN BY CM
== END 2024-06-28 10:22 | disposition home or self-care (01) | DRG 720 ==
LOC: HO.ED 10:52 → HO.EDOVER 14:36 → HO.S3 16:06
PROVIDERS: Physician Assistant Medical; Admitting Provider Student in an Organized Health Care Education/Training Program; Emergency Provider Emergency Medicine; Visit Provider Internal Medicine
DX: A41.89 Other specified sepsis (principal); E87.20 Acidosis, unspecified; B97.10 Unspecified enterovirus as the cause of diseases classified elsewhere; E86.0 Dehydration; I95.9 Hypotension, unspecified; E66.01 Morbid (severe) obesity due to excess calories; Z71.3 Dietary counseling and surveillance; Z68.41 Body mass index [BMI] 40.0-44.9, adult; Z20.822 Contact with and (suspected) exposure to COVID-19; Z79.899 Other long term (current) drug therapy
CPT/HCPCS: 0241U; 36415; 71046; 74177; 80048; 80053; 81001; 83605; 83690; 85025; 87040; 87633; 87651; 93005; 99285; J0696; J1650; J7120; Q9967

== ENCOUNTER → 2024-06-27 07:53 | Outpatient (BNV) | payer BC, MEDICAID, SELFPAY | PROVIDERS: Emergency Provider Emergency Medicine; Visit Provider Radiology Diagnostic Radiology | DX: K76.0 Fatty (change of) liver, not elsewhere classified (principal); K42.9 Umbilical hernia without obstruction or gangrene; M62.08 Separation of muscle (nontraumatic), other site | CPT/HCPCS: 74177 ==

== ENCOUNTER → 2024-06-27 11:46 | Outpatient (BNV) | payer BC, MEDICAID, SELFPAY | PROVIDERS: Emergency Provider Emergency Medicine; Visit Provider Internal Medicine Cardiovascular Disease | DX: R00.0 Tachycardia, unspecified (principal) | CPT/HCPCS: 93010 ==

== ENCOUNTER → 2024-06-27 14:31 | Outpatient (BNV) | payer BC, MEDICAID, SELFPAY | PROVIDERS: Admitting Provider Student in an Organized Health Care Education/Training Program; Emergency Provider Emergency Medicine; Visit Provider Student in an Organized Health Care Education/Training Program | DX: A41.89 Other specified sepsis (principal); B34.1 Enterovirus infection, unspecified | CPT/HCPCS: 99222; 99239 ==

== ENCOUNTER 2024-07-17 14:47 | Outpatient (AMB) | payer BC, MEDICAID, SELFPAY ==
--- NOTE | 2024-07-17 15:02 | AM.OFFVISNUR ---
Vital Signs 07/17/24 15:03 Height 4 ft 10 in Weight 190 lb BMI 39.7 Intake Visit Reasons: DEPO Allergies hydroxyzine Allergy (Mild, Verified 06/27/24 04:45) Rash Nursing Note chavez is here today for her scheduled Depo-provera inj. She reports some breast pain a few mos ago which has resolved. Today she c/o bilateral nipple discomfort, denies any discharge from her nipples, and has had a NL mammo in the last few months per pt. She has an appointment after her Depo inj and will mention to her PCP. Pt was also advised to call here for any questions or concerns regarding this issue. Office Procedures Depo Questionnaire If YES to any of the following questions, please consult a provider. Date of last injection: 04/17/24 Date of last gynecology exam: 08/30/23 Menstrual pattern since last injection has been: Light (spotting only) Irregular bleeding?: No Breast lumps or other breast changes?: Yes (Pt c/o bilateral nipple discomfort, denies any nipple discharge.) Changes in weight or appetite?: No Depression or changes in mood?: No Abnormal hair growth or loss?: No Skin problems (rash, acne, discoloration)?: No Pain at the injection site?: No Headaches?: No Nervousness?: No Abdominal pain or cramping?: No Dizziness or nausea?: No Fatigue or weakness?: No Decrease in sexual drive?: No Chest pain or shortness of breath?: No Swelling in arms or legs?: No Any other problems or concerns?: few months ago pt had breast doscomfort, now resolved, has some nipple pain Form completed by?: Giuseppe Cramer LPN Office Meds Depo-Provera 150 mg/mL intramuscular syringe Performing Provider: Breann Caraballo CNM [place] [facility] [place] [facility] Administered by: Paty Cramer LPN on 07/17/24 15:04 Dose Route Admin Location Dispensed Lot Number Expiration Date [facility] Model [employer] 150 mg IM lt deltoid 1 mL [id number] 07/08/26 05392-405-07 [facility] Assessment & Plan Assessment & Plan Orders: Orders AMB Medroxyprogesterone Injection Patient Supplied Today Z30.42 - Encounter for surveillance of injectable contraceptive
[2024-07-17 15:03] VITALS: BMI 39.7
== END 2024-07-17 14:58 | disposition home or self-care (01) ==
LOC: HO.HWS 14:47
PROVIDERS: Visit Provider Advanced Practice Midwife
DX: Z30.42 Encounter for surveillance of injectable contraceptive (principal)

== ENCOUNTER → 2024-07-17 14:47 | Outpatient (BNVA) | payer BC, MEDICAID, SELFPAY | PROVIDERS: Visit Provider Advanced Practice Midwife | DX: Z30.42 Encounter for surveillance of injectable contraceptive (principal); Z09 Encounter for follow-up examination after completed treatment for conditions other than malignant neoplasm; N64.4 Mastodynia; Z86.19 Personal history of other infectious and parasitic diseases | CPT/HCPCS: 96372; 99211; J1050 ==

== ENCOUNTER 2024-07-17 15:16 | Outpatient (AMB) | payer BC, MEDICAID, SELFPAY ==
--- NOTE | 2024-07-17 15:20 | A.OFFPC_ITS ---
Vital Signs 07/17/24 15:22 Height 4 ft 10 in Weight 189 lb 8 oz BMI 39.6 BP 110/62 Blood Pressure Location Lt brachial Position Sitting Pulse 100 Pulse Source Pulse Oximeter Pulse Oximetry (%) 97 Oxygen Delivery Method Room Air Intake Visit Reasons: [facility] 06/28 rhinovirus Intake Note: Patient is here for hospital discharge follow up. Patient was discharged from [facility] on 06/28/24. Long Term Care Pharmacist Required: Yes Long Term Care Pharmacist Language: Syriac Information Interpreted: non-clinical & clinical Pony Roll Finisher: Not Required per policy Accompanied by: Self / Same As Patient Allergies hydroxyzine Allergy (Mild, Verified 07/17/24 15:22) Rash Tobacco use date assessed: 07/17/24 Dental Screening Dental Screen Date: 04/21/24 HPI [facility] 06/28 rhinovirus HPI Details 44-year-old female with past medical his tory of Harvey's palsy last seen May 2024 coming in for hospital discharge follow up. In review of the notes, patient presented to [facility] ED 06/27/2024 with abdominal pain and sore throat found to be hypotensive requiring IV bolus and Levophed and tested positive for rhino virus. Patient was admitted for viral sepsis due to rhino virus which resolved with IV fluids and patient was discharged home 06/28/2024. seismic interpreter was used for the duration of the visit [id number]. Patient tells us today she has been feeling much better since discharge from the hospital. She is no longer having any fevers, cough, nausea, vomiting or abdominal pain. She was having a headache and neck pain after discharge but these have resolved. She does mention having a new concern of nipple pain. This pain started 3 months ago and she will typically have pain in the first week of the month that typically resolves by day 8-9 in the month. She denies any drainage or rash around the nipple and recently had mammogram completed 05/2024. The pain began after starting the Depo injection. [facility] Medical History Facial paralysis/Laton palsy Surgical History Hx of cholecystectomy Hx of appendectomy Family History Mother Liver cancer Social History Household Members: Family Household Members Other:: daughter Housing: House Are you a primary health care assistant to a significant other at home: No Do you presently have visiting nurse or other home services: No Alcohol intake: current Alcohol intake frequency: holidays/special occasions only Patient Tobacco Use Status: Never used Tobacco e-Cigarette/Vaping Use: Never Used Second Hand Smoke Exposure: No service: No Current occupational status: employed Current occupation: [employer] Gender identity: Female Cognitive needs: No Hearing needs: No Vision needs: No Female Reproductive History Menstrual Age of Menarche: 12 Questionnaire Thrive Questionnaire Date Thrive assessed: 04/21/24 REJI-7 AMB Questionnaire REJI-7 Date REJI - 7 assessed: 04/21/24 Source: Developed by Drs. Juan Lomeli, Justine Plasencia, Oziel Mason and colleagues, with an educational gadiel from [employer]. Review of Systems Const Denies body aches, Denies chills, Denies fever(s), Denies headache(s) and Denies poor appetite Eyes Reports no additional complaints ENT Denies dysphagia, Denies dizziness, Denies headache(s) and Denies odynophagia Card Denies chest pain, Denies syncope, Denies edema, Denies irregular heart rhythm, Denies lightheadedness and Denies dyspnea Resp Denies cough and Denies dyspnea GI Denies abdominal pain, Denies constipation, Denies dysphagia, Denies diarrhea, Denies nausea, Denies odynophagia and Denies vomiting Reports no additional complaints Musc Reports no additional complaints and Denies abnormal gait Skin/Breast Reports system reviewed and no additional complaints, except as documented Neuro Denies abnormal gait, Denies dizziness, Denies syncope and Denies headache(s) Psych Reports no additional complaints Physical exam (Primary Care) Vital Signs: Last Vital Signs Pulse 100 07/17/24 15:22 BP 110/62 07/17/24 15:22 Pulse Ox 97 07/17/24 15:22 Oxygen Delivery Method Room Air 07/17/24 15:22 BMI result Body Mass Index 39.6 Tobacco/Smoking Status: Tobacco use Status Tobacco use date assessed 07/17/24 07/17/24 15:27 Patient Tobacco Use Status Never used Tobacco 07/17/24 15:21 e-Cigarette/Vaping Use Never Used 07/17/24 15:21 Thrive Assessment: Date of Thrive Assessment Date Thrive assessed 04/21/24 07/17/24 15:21 Const General: cooperative, healthy appearing, comfortable and no acute distress Orientation/consciousness: patient oriented x3 HENMT Head: Yes normocephalic Ears: hearing grossly normal bilaterally General nose exam: Normal external nose present Eyes General: appearance normal, both eyes and all related structures Conjunctivae: conjunctivae normal Neck Neck: Yes full ROM and Yes no lymphadenopathy Chest Other: tenderness to palpation over bilateral nipples. No skin changes, dimpling or nipple discharge. Chest palpation & inspection: normal inspection of the chest Breast/axilla inspection: normal inspection of the breasts and normal inspection of the axillae Breast/axilla palpation: normal palpation of the breasts, normal palpation of the axillae and no axillary lymphadenopathy Resp Effort & Inspection: normal respiratory effort Auscultation: clear to auscultation bilaterally, no crackles, no rales, no rhonchi and no wheezes Cardio Rate: regular rate Rhythm: regular rhythm Skin General skin exam: no rashes or lesions noted Neuro General: patient oriented x3 Gait exam (Neuro): Normal gait present Extrem General: Yes normal to inspection, Yes full ROM and No edema Psych Affect: normal affect Attitude: cooperative Insight: Good insight present (Psych) Judgement: Good judgement present (Psych) Coding Level of Care Code Est Pt Level 4 (89129) Diagnoses Nipple pain N64.4 Viral sepsis A41.89; B97.89 Assessment & Plan Assessment & Plan (1) Nipple pain: Code(s): N64.4 - Mastodynia Category: Medical Plan: Patient having bilateral nipple pain worse in the 1st week of the month that resolved spontaneously and has been going on for the last 3 months since starting the Depo injection. I suspect this is related to hormonal changes related to the Depo injection given the presentation of bilateral nipple pain the spontaneous resolution and predictability of the pain. She also recently had a negative mammogram completed 05/2024. To ensure there is no other underlying cause we will order for bilateral ultrasounds for further evaluation. 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 (2) Viral sepsis: Code(s): A41.89 - Other specified sepsis; B97.89 - Other viral agents as the cause of diseases classified elsewhere Category: Medical Plan: Symptoms have resolved at this time patient denies any concerns and blood pressure has normalized. Continue to monitor for symptoms. Plan This note was constructed using voice recognition software. While every effort has been made to ensure accuracy and hospital food service worker, still areas may have been included sometimes these areas may affect the content or meeting of the given symptoms. Total time spent caring for the patient today was 20 minutes. This includes time spent before the visit reviewing the chart, time spent during the visit, and time spent after the visit and documentation.
[2024-07-17 15:22] VITALS: BP 110/62; PULSE 100; O2SAT 97; BMI 39.6
== END 2024-07-17 16:32 | disposition home or self-care (01) ==
DX: N64.4 Mastodynia (principal); A41.89 Other specified sepsis; B97.89 Other viral agents as the cause of diseases classified elsewhere

== ENCOUNTER 2024-08-28 09:08 | Outpatient (REF) | payer BC, MEDICAID, SELFPAY ==
--- NOTE | ~2024-08-28 | MM_ITS ---
EXAMINATION: MM DIAGNOSTIC DIGITAL BREAST TOMOSYNTHESIS, BILATERAL Limited bilateral ultrasound. CLINICAL INFORMATION: Bilateral nipple pain which comes and goes for 2 months. COMPARISON: Mammography: Comparison is made with relevant prior exams. TECHNIQUE: Digital breast mammography with tomosynthesis is performed in both the craniocaudal and mediolateral oblique views along with computer-aided detection (CAD). Limited bilateral ultrasound. FINDINGS: There are scattered areas of fibroglandular density (ACR BI-RADS breast composition Category b). There are no significant masses, abnormal calcifications, or other abnormalities. Targeted color Doppler ultrasound scanning in the bilateral retroareolar regions demonstrates normal fibroglandular breast tissue. There is no sonographic abnormality. Results are provided to the patient at time of visit by the technologist. MM/MM tomosynthesis diagnostic BI IMPRESSION: No mammographic or sonographic abnormality bilateral breasts to account for the patient's bilateral nipple pain. Recommend clinical evaluation and follow-up. ASSESSMENT: BI-RADS BI-RADS 1 - Negative RECOMMENDATION: 1 year F/U This patient's information was entered into a reminder system with a target due date for their next mammogram. Electronically signed by: Ade Ni DO 08/28/2024 10:15 AM MIKE
== END 2024-08-28 09:09 | disposition home or self-care (01) ==
LOC: HO.MAMMO 09:08
DX: N64.4 Mastodynia (principal); R92.323 Mammographic fibroglandular density, bilateral breasts
CPT/HCPCS: 76642; 77062; 77066

== ENCOUNTER → 2024-08-28 09:15 | Outpatient (BNV) | payer BC, MEDICAID, SELFPAY | PROVIDERS: Visit Provider Internal Medicine | DX: N64.4 Mastodynia (principal); R92.323 Mammographic fibroglandular density, bilateral breasts | CPT/HCPCS: 76642; 77062; 77066 ==

== ENCOUNTER 2024-10-02 13:25 | Outpatient (REF) | payer BC, MEDICAID, SELFPAY ==
[2024-10-03 11:51] LABS: CT PCR NOT DETECTED (Not Detect.); NG PCR NOT DETECTED (Not Detect.)
[2024-10-03 14:58] LABS: Bacterial Vaginosis PCR NEGATIVE (Negative); Candida Group PCR NOT DETECTED (Not Detect); Candida glab krusei PCR NOT DETECTED (Not Detect); Trichomonas vaginalis PCR NOT DETECTED (Not Detect)
== END 2024-10-02 13:26 | disposition home or self-care (01) ==
LOC: HO.LAB 13:25
PROVIDERS: Visit Provider Advanced Practice Midwife
DX: Z01.419 Encounter for gynecological examination (general) (routine) without abnormal findings (principal); N89.8 Other specified noninflammatory disorders of vagina; N87.0 Mild cervical dysplasia; N64.4 Mastodynia; E66.01 Morbid (severe) obesity due to excess calories; Z68.41 Body mass index [BMI] 40.0-44.9, adult; Z20.2 Contact with and (suspected) exposure to infections with a predominantly sexual mode of transmission
CPT/HCPCS: 81515; 87491; 87591

== ENCOUNTER 2024-10-02 13:25 | Outpatient (AMB) | payer BC, MEDICAID, SELFPAY ==
[2024-10-02 13:39] VITALS: BP 110/60; BMI 40.1
--- NOTE | 2024-10-02 13:39 | A.OFFVIS_ITS ---
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 She has been on Depo-Provera for the last of years she does thinks she has gained weight on it. She has talked to her primary care provider and the discussion has come up about another method that would contribute last weight gain. Also she has had pain in her bones she does not have pre diabetes or anything as far she knows but she is working on trying to eat healthier. 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 She is due for her next Depo-Provera on Wednesday and she gets it at the [facility]. She was told she had to wait to see 1 of the other providers to talk about a Mirena if she wanted 1 she is somewhat thinking about it.. She does not get her periods on the Depo before the Depo she had the Nexplanon and she gained weight on that as well. She had the LEEP in 2021 for RIDDHI 1. Pap smear done last year was negative.. She will be traveling to her country to visit family for Holy week in November. PFSH Medical History Facial paralysis/[place] palsy Surgical History Hx of cholecystectomy Hx of appendectomy Family History Mother Liver cancer Social History Household Members: Family Household Members Other:: daughter Housing: House Are you a primary behavioral health care coordinator to a significant other at home: No Do you presently have visiting nurse or other home services: No Alcohol intake: current Alcohol intake frequency: holidays/special occasions only Patient Tobacco Use Status: Never used Tobacco e-Cigarette/Vaping Use: Never Used Second Hand Smoke Exposure: No service: No Current occupational status: employed Current occupation: [employer] Gender identity: Female Cognitive needs: No Hearing needs: No Vision needs: No Female Reproductive History Menstrual Age of Menarche: 12 Duration of menses: 3-5 days control method: progesterone injection Total pregnancies: 4 Full term: 4 Date of last pap smear: 08/31/23 (negative) History of abnormal pap smear: Yes (2021,ASCUS,HPV+) Physical Exam Vital Signs: Last Vital Signs BP 110/60 10/02/24 13:39 BMI result Body Mass Index 40.1 Const General: healthy appearing, comfortable, no acute distress, well developed and alert Nutritional Appearance: average body habitus Orientation/consciousness: patient oriented x3 Limitations: no limitations HEENT Head: Yes normocephalic Neck Neck: Yes normal visual inspection Chest Chest palpation & inspection: normal inspection of the chest Breast/axilla inspection: normal inspection of the breasts and normal inspection of the axillae Breast/axilla palpation: normal palpation of the breasts and normal palpation of the axillae Resp Effort & Inspection: normal respiratory effort GI Inspection: Yes normal to inspection, No Abdominal wall edema and No distended Palpation (GI): Soft to palpation and nontender Other: External exam within normal limits vagina is pink and clear and moist no abnormal discharge at all cervix feels somewhat shortened possibly status post LEEP. Flattened against vaginal apex uterus nonenlarged not easily palpable adnexa nontender nonenlarged fair tone with Kegel. General: Yes bladder normal to palpation External Female Exam: normal external appearance and normal appearance of the urethra Speculum Exam - Vagina: normal appearance of the vagina, normal palpation and normal vaginal discharge Speculum Exam - Cervix: normal appearance of the cervix, normal palpation and nontender Bimanual exam- vagina & uterus: normal bimanual exam, normal palpation, uterine size normal, bladder normal to palpation, consistency normal, normal palpation, uterine mobility normal, uterine shape normal, No Cervical tenderness present, non-tender and no cervical motion tenderness Bimanual Exam- Adnexa, other: normal adnexae, no masses, normal and No adnexal tenderness Neuro General: patient oriented x3 Results Reviewed Results Reviewed: Name: Sravanthi Holliday Age/Sex: 43/F Attending: Breann Caraballo CNM : 1980 Submitted by: Breann Caraballo CNM Copies to: Marly Dan MR #: [id number] Status: DEP REF Collected: 08/30/23 Location: [facility] Received: 08/31/23 Interpretation Satisfactory for evaluation. Mild inflammation. Negative for intraepithelial lesion or malignancy. HPV mRNA E6/E7: NOT DETECTED This assay detects E6/E7 viral messenger RNA (mRNA) from 14 high-risk HPV types (16, 18, 31, 33, 35, 39, 45, 51, 52, 56, 58, 59, 66, 68) HPV testing performed by [facility], [place], [place]. See reference laboratory portion of the EMR for entire report. Clinical Information LMP: No menses, Depo Previous PAP test: 11/10/21, ASCUS HPV+ Material Received ThinPrep-Cervical Copies To Marly Dan [address] [address] Breann Caraballo [address] Werner [address] [place] [id number] Electronically Signed By: ELLI Winkler (ASCP) 09/09/23 0934 The Pap Test is a screening procedure with the inherent possibility of both false negative and false positive results. Results should be interpreted in the context of historic and current clinical findings. Reliability of the Pap Test is enhanced by performing the test on a regular repetitive basis. Patient: Sravanthi Holliday Age/Sex: 43/F MR#: [id number] Page 1 of Name: Sravanthi Christie Age/Sex: 41/F Attending: Seth Pagan MD : 1980 Submitted by: Seth Pagan MD Copies to: MR #: [id number] Status: [place] [facility] [place]lected: 07/10/22 Location: [facility] Received: 07/10/22 Diagnosis A. Cervix, cone excision: - Low-grade squamous intraepithelial lesion (RIDDHI 1). - No endocervical epithelium identified. B. Cervix, top hat, excision: - Low-grade squamous intraepithelial lesion (RIDDHI 1). - Background inflamed cervical transformation zone mucosa. C. Endocervix, post-cone curettage: Superficial strips of endocervical epithelium within normal limits. 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 Microscopic sections reviewed. Material Received A: Cervical cone B: Top hat C: Post cone ECC Gross Description Received in three parts. Part A: Received in formalin labeled Cervical cone is a 1.8 cm. in diameter and up to 0.9 cm. in length, previously incised, C-shaped cervical LEEP biopsy specimen excised to a thickness ranging from 0.3 to 0.6 cm. As stated on the specimen requisition slip and specimen container, a stitch denotes 12 o'clock. A squamocolumnar junction is not identified, rather a glistening, smooth, curry- white exocervical. The margins are inked and the specimen is serially sectioned to reveal slightly gritty, rubbery, curry-white fibrous cut surfaces. The specimen is entirely submitted in a clockwise fashion, beginning at 12 o'clock, in cassettes A1 - A3. Part B: Received in formalin labeled Top hat is a diffusely cauterized, previously incised, C-shaped portion of cervical LEEP biopsy specimen, measuring 1.5 cm. in diameter, up to 0.8 cm. in length and ranging from 0.3 to 0.5 cm. in thickness. No sutures are present to orient the specimen. The convex margin is inked. The mucosa is velvety, jauregui-pink with tenacious clear and cloudy, curry-white mucus. The specimen is serially sectioned to reveal slightly gritty, dense, curry-white fibrous cut surfaces. The Patient: Sravanthi Christie [facility]: 41[id number] MR#: [id number] Page 1 of 2 Surgical Pathology [id number] specimen is entirely submitted in cassettes B1 - B3. Part C: Received in formalin labeled ECC is a 1.2 x 0.9 x 0.4 cm. aggregate of cloudy, curry-jauregui globoid mucus with delicate threads of jauregui tissue. The specimen is submitted in toto in a single cassette labeled C. CEDS NOTE: Some or all of the immunohistochemical tests reported herein may have been developed and their performance characteristics determined by [facility]. They have not been cleared or approved by the U.S. Food and Drug Administration (FDA). However, the FDA has determined that such clearance or approval is not necessary. This laboratory is certified under the Clinical Laboratory Improvement Amendments of 1988 (CLIA) as qualified to perform high complexity clinical laboratory testing. Electronically Signed By: Mitul Howell MD 07/14/22 1529 Patient: Sravanthi Christie Age/Sex: 41/F MR#: [id number] [facility] [address] [place] [address] Mammography Report Signed Patient: Sravanthi Holliday MR#: [id number] : 1980 Acct:[id number] Age/Sex: 44 / F ADM Date: 08/28/24 Loc: [facility] Attending Dr: Velma Cardenas PA-C Ordering Physician: Velma Cardenas PA-C Results: 1Negative Date of Service: 08/28/24 Follow Up: 1 Year From Original Mammogram Procedure(s): MM tomosynthesis diagnostic BI Accession Number(s): [id number] cc: Velma Cardenas PA-C~ EXAMINATION: MM DIAGNOSTIC DIGITAL BREAST TOMOSYNTHESIS, BILATERAL Limited bilateral ultrasound. CLINICAL INFORMATION: Bilateral nipple pain which comes and goes for 2 months. COMPARISON: Mammography: Comparison is made with relevant prior exams. TECHNIQUE: Digital breast mammography with tomosynthesis is performed in both the craniocaudal and mediolateral oblique views along with computer-aided detection (CAD). Limited bilateral ultrasound. FINDINGS: There are scattered areas of fibroglandular density (ACR BI-RADS breast composition Category b). There are no significant masses, abnormal calcifications, or other abnormalities. Targeted color Doppler ultrasound scanning in the bilateral retroareolar regions demonstrates normal fibroglandular breast tissue. There is no sonographic abnormality. Results are provided to the patient at time of visit by the technologist. MM/MM tomosynthesis diagnostic BI IMPRESSION: No mammographic or sonographic abnormality bilateral breasts to account for the patient's bilateral nipple pain. Recommend clinical evaluation and follow-up. ASSESSMENT: BI-RADS BI-RADS 1 - Negative RECOMMENDATION: 1 year F/U This patient's information was entered into a reminder system with a target due date for their next mammogram. 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 Code(s): N87.0 - Mild cervical dysplasia Category: Medical (3) Well woman exam with routine gynecological exam: Code(s): Z01.419 - Encounter for gynecological examination (general) (routine) without abnormal findings Category: Medical (4) control counseling: Code(s): Z30.09 - Encounter for other general counseling and advice on contraception Category: Medical (5) Obesity, morbid, BMI 40.0-49.9: Code(s): E66.01 - Morbid (severe) obesity due to excess calories Category: Medical (6) Breast cancer screening: Code(s): Z12.39 - Encounter for other screening for malignant neoplasm of breast Category: Medical Plan -----Discussed in this visit the following: healthy balanced diet, regular and consistent exercise, getting recommended health screens, doing the best she can for her particular health concerns, kegel exercises, pap smear screening and followup recommendations, mammography screening and SBE, normal changes in cycles in her life stage--- . She is up-to-date with her mammograms having just recently had a mammogram and also a breast ultrasound this past fall which she says wheeze negative. She does follow with her primary care provider around issues with nervousness issues and anxiety and sometimes she gets headaches but if she takes a Tylenol they get much better and go way. She would be interested in a Mirena IU S especially when I shared that they do not bring the same side effect of weight gain as the Nexplanon and Depo-Provera do. Discussed when she is getting her next Depo and it is unlikely that we would be able to insert a Mirena before next Wednesday.. So she is going to get her Depo reinjection Wednesday as scheduled and we will aim for Mirena insertion sometime well be next Depo-Provera is active but try to avoid the time when she would be traveling we will aim for a Wednesday or other day that she is off from work perhaps in very early November and if need be the end of October so that she does not run into the Depo wearing off again. Coding Level of Care Code Est Pt Prev Care 40-64y(76324) Diagnoses Depot contraception Z30.42 RIDDHI I (cervical intraepithelial neoplasia I) N87.0 Well woman exam with routine gynecological exam Z01.419 control counseling Z30.09 Obesity, morbid, BMI 40.0-49.9 E66.01 Breast cancer screening Z12.39
== END 2024-10-02 14:43 | disposition home or self-care (01) ==
PROVIDERS: Visit Provider Advanced Practice Midwife
DX: Z01.419 Encounter for gynecological examination (general) (routine) without abnormal findings (principal); N87.0 Mild cervical dysplasia; E66.01 Morbid (severe) obesity due to excess calories
CPT/HCPCS: 99396; 99459

== ENCOUNTER 2024-10-02 15:11 | Outpatient (REF) | payer BC, MEDICAID, SELFPAY ==
[2024-10-10 10:34] LABS: HPV Genotype 16 Negative (Negative); HPV Genotype 18 Negative (Negative); HPV High Risk Negative (Negative)
== END 2024-10-02 15:12 | disposition home or self-care (01) ==
LOC: HO.LNP 15:11
PROVIDERS: Visit Provider Advanced Practice Midwife
DX: Z01.419 Encounter for gynecological examination (general) (routine) without abnormal findings (principal); Z11.51 Encounter for screening for human papillomavirus (HPV)
CPT/HCPCS: 87626; 88175

== ENCOUNTER 2024-10-09 10:45 | Outpatient (AMB) | payer BC, MEDICAID, SELFPAY ==
[2024-10-09 10:55] VITALS: BMI 39.7
--- NOTE | 2024-10-09 10:55 | AM.OFFVISNUR ---
Vital Signs 10/09/24 10:55 Height 4 ft 10 in Weight 190 lb BMI 39.7 Intake Visit Reasons: depo Allergies hydroxyzine Allergy (Mild, Verified 10/02/24 13:40) Rash Nursing Note Sravanthi is here today for her scheduled Depo-provera inj. She denies any bleeding, or any other concerns. follow up in 12 weeks for next inj. Office Procedures Depo Questionnaire If YES to any of the following questions, please consult a provider. Date of last injection: 07/17/24 Date of last gynecology exam: 10/02/24 Menstrual pattern since last injection has been: Not Applicable Irregular bleeding?: No Breast lumps or other breast changes?: No Changes in weight or appetite?: No Depression or changes in mood?: No Abnormal hair growth or loss?: No Skin problems (rash, acne, discoloration)?: No Pain at the injection site?: No Headaches?: No Nervousness?: No Abdominal pain or cramping?: No Dizziness or nausea?: No Fatigue or weakness?: No Decrease in sexual drive?: No Chest pain or shortness of breath?: No Swelling in arms or legs?: No Any other problems or concerns?: none voiced Form completed by?: Giuseppe Cramer LPN Office Meds Depo-Provera 150 mg/mL intramuscular syringe Performing Provider: Tammie Leal CNM Performing Location: [facility] [place] [facility] Administered by: Paty Cramer LPN on 10/09/24 10:55 Dose Route Admin Location Dispensed Lot Number Expiration Date [facility] [employer] 150 mg IM left deltoid 1 mL [id number] 08/08/26 72208-038-81 [facility] Assessment & Plan Assessment & Plan Orders: Orders AMB Medroxyprogesterone Injection Patient Supplied Today Z30.42 - Encounter for surveillance of injectable contraceptive Medications: New Depo-Provera (medroxyprogesterone) 150 mg IM ONCE 1 mL 0RF NS Z30.42 - Encounter for surveillance of injectable contraceptive Coding Level of Care Code Established Pt Est Pt Level 1 (09942) Patient Type Established History Problem Focused Exam Problem Focused Medical Decision Making Straight Forward Time Spent (min) 20
== END 2024-10-09 11:06 | disposition home or self-care (01) ==
LOC: HO.HWS 10:45
PROVIDERS: Visit Provider Advanced Practice Midwife
DX: Z30.42 Encounter for surveillance of injectable contraceptive (principal)

== ENCOUNTER → 2024-10-09 10:45 | Outpatient (BNVA) | payer BC, MEDICAID, SELFPAY | PROVIDERS: Visit Provider Advanced Practice Midwife | DX: Z30.42 Encounter for surveillance of injectable contraceptive (principal) | CPT/HCPCS: 96372; 99211; J1050 ==

== ENCOUNTER 2024-10-30 09:41 | Outpatient (AMB) | payer BC, MEDICAID, SELFPAY ==
--- NOTE | 2024-10-30 10:23 | MHC.OFFWIV ---
Intake Vital Signs 10/30/24 10:26 Weight 190 lb BP 140/90 H Blood Pressure Location Lt brachial Position Sitting Pulse 84 Pulse Source Pulse Oximeter Pulse Oximetry (%) 98 Oxygen Delivery Method Room Air Intake Visit Reasons: EP Neck pain, head ache Intake Note: Patient here for neck pain, headaches and pain that radiates to the ears and arms. Patient Tobacco Use Status: Never used Tobacco Allergies hydroxyzine Allergy (Mild, Verified 10/30/24 10:26) Rash Do you need a note to return to daycare/school/sports/work: No HPI HPI Comments History of Present Illness Details [place]ian video official court interpreter used for this visit. History - The patient is a 44-year-old female presenting with pain in the neck and arm, dizziness, and sinus pressure. - The onset of symptoms occurred 3 days ago accompanied by mild neck pain, escalating the next day with associated dizziness. - The presence of bilateral arm pain was noted, although the patient denied any recent injury or trauma. - The patient described pressure in her head and dizziness, with the left ear exhibiting fluid accumulation but without associated pain. - The patient consumed Tylenol and ibuprofen for symptom management, achieving only brief symptom relief. - The patient did not report fever, cough, nausea, vomiting, or heightened sensitivity to light or sound, though sinus pressure was significant. Physical Exam General: Cooperative, healthy appearing, comfortable and no acute distress Orientation/consciousness: Patient oriented x3 Limitations: danish speaking Head: Normal to inspection Ears: Hearing grossly normal bilaterally, TMs with fluid L>R Nose: Normal external nose present, Normal nares present and No nasal discharge present Face and sinus: Normal facial exam, tenderness noted, and Yes frontal sinuses tender Mouth: Normal oral and palatal mucosa present and moist mucous membranes Throat: Yes tonsils normal, Yes uvula midline. 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 Surgical History Hx of cholecystectomy Hx of appendectomy Family History Mother Liver cancer Social History Household Members: Family Household Members Other:: daughter Housing: House Are you a primary intensive care specialist to a significant other at home: No Do you presently have visiting nurse or other home services: No Alcohol intake: current Alcohol intake frequency: holidays/special occasions only Patient Tobacco Use Status: Never used Tobacco e-Cigarette/Vaping Use: Never Used Second Hand Smoke Exposure: No service: No Current occupational status: employed Current occupation: [employer] Gender identity: Female Cognitive needs: No Hearing needs: No Vision needs: No Female Reproductive History Menstrual Age of Menarche: 12 Review of Systems Const All systems reviewed & are unremarkable except as noted in HPI and below Physical Exam Vital Signs: Last Vital Signs Pulse 84 10/30/24 10:26 BP 140/90 H 10/30/24 10:26 Pulse Ox 98 10/30/24 10:26 Oxygen Delivery Method Room Air 10/30/24 10:26 Assessment & Plan Assessment & Plan (1) Sinusitis nasal: Code(s): J32.9 - Chronic sinusitis, unspecified Qualifiers: Sinusitis location: frontal Chronicity: acute Recurrence: non-recurrent Qualified Code(s): J01.10 - Acute frontal sinusitis, unspecified Plan: VSS, pt well appearing and PE remarkable for fluid in ears, left sided trap ttp. likely has 2 issues today. The patient presents with symptoms indicative of cervical radiculopathy and acute sinusitis, which will be managed with a short course of systemic corticosteroids to mitigate inflammation. These will address both the cervical nerve inflammation and the sinus condition. I have advised her to take 1000mg of Tylenol for pain management every 8 hours and have prescribed Fluticasone propionate nasal spray for twice-daily use to manage nasal congestion and sinus pressure. The patient has been briefed on potential side effects of the steroid therapy. She understands the management plan and how to correctly apply the nasal spray. I have discussed the viral nature of most sinus infections, confirming no antibiotics were needed at this point. Patient was informed and verbally consented to the use of an ambient scribe for clinic note documentation during this visit (2) Neck pain without injury: Code(s): M54.2 - Cervicalgia Plan: as above Medications: New prednisone 40 mg (2 x 20 mg) PO DAILY 10 tabs 0RF fluticasone propionate 50 mcg/actuation administer into each nostril 1 spray intranasal Q12H 16 grams 0RF Coding Level of Care Code Est Pt Level 4 (89896) Diagnoses Acute non-recurrent frontal sinusitis J01.10 Sinusitis location: frontal Chronicity: acute Recurrence: non-recurrent Neck pain without injury M54.2
[2024-10-30 10:26] VITALS: BP 140/90; PULSE 84; O2SAT 98
== END 2024-10-30 11:18 | disposition home or self-care (01) ==
PROVIDERS: Visit Provider Physician Assistant
DX: J01.10 Acute frontal sinusitis, unspecified (principal); M54.2 Cervicalgia

== ENCOUNTER 2024-11-13 10:17 | Outpatient (AMB) | payer BC, MEDICAID, SELFPAY ==
[2024-11-13 10:58] VITALS: BP 110/78; BMI 40.1
--- NOTE | 2024-11-13 10:58 | MHC.OFFVIS ---
Vital Signs 11/13/24 10:58 Height 4 ft 10 in Weight 192 lb BMI 40.1 BP 110/78 Intake Visit Reasons: IUD/insertion(Mirena) Fitness Technician Services: Fitness Technician Present Information Interpreted: clinical only Electrical Worker: Electrical Worker Present Allergies hydroxyzine Allergy (Mild, Verified 11/13/24 11:00) Rash Medication List - Last Reconciled 11/13/24 by Breann Caraballo CNM fluticasone propionate 50 mcg/actuation 1 spray intranasal Q12H medroxyprogesterone (Depo-Provera) 150 mg IM Q12W prednisone 40 mg (2 x 20 mg) PO DAILY triamcinolone acetonide 0.1% 1 appl topical DAILY PRN Is last menstrual period known: No 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 Surgical History Hx of cholecystectomy Hx of appendectomy Family History Mother Liver cancer Social History Household Members: Family Household Members Other:: daughter Housing: House Are you a primary restorative care technician to a significant other at home: No Do you presently have visiting nurse or other home services: No Alcohol intake: current Alcohol intake frequency: holidays/special occasions only Patient Tobacco Use Status: Never used Tobacco e-Cigarette/Vaping Use: Never Used Second Hand Smoke Exposure: No service: No Current occupational status: employed Current occupation: [employer] Gender identity: Female Cognitive needs: No Hearing needs: No Vision needs: No Female Reproductive History Menstrual Age of Menarche: 12 Duration of menses: 3-5 days control method: progesterone injection Total pregnancies: 4 Full term: 4 Date of last pap smear: 10/03/24 (negative) Physical Exam Vital Signs: Last Vital Signs BP 110/78 11/13/24 10:58 BMI result Body Mass Index 40.1 Other: normal external exam vagina pink clear moist cervix is status post LEEP and is somewhat flattened against vaginal schrader. Dilation needed with dilator for insertion of sound into cervix. Uterus sounded to 6-1/2 cm thereafter somewhat smooth insertion of Mirena IU S but we will verify position of IUD before patient leaves hospital. Uterus midposition slightly difficult to palpate secondary to adipose mobile nontender prior to exam. Office Procedures IUD Insert/Removal Details Details: ---Patient is here for her IUD insertion. Bimanual exam was done. Her uterus is firm, nontender, and appropriate sized, and is nontender, midposition . The cervix was swabbed with Betadine. the cervix was shortened and flattened against the apex of the vagina, and it was scarred from LEEP. Tenaculum was placed on the cervix slowly to minimize cramping. the sound would not easily passed through the cervical os so a dilator was gently used to facilitate entry and through the os. The uterus was sounded slowly and gently she show a measurement of 6.5 cm. The IUD was removed from its package, after checking identifying information and lot dates and expiration dates and and gently inserted into the os, as per the IUD insertion procedure. The strings were then trimmed to 3-4 centimetres. The tenaculum was removed and gentle pressure applied with a swab, until any bleeding subsided from the tenaculum sites. The speculum was gently removed. The patient sat up. I Reviewed what to expect, and what indications would necessitate a call. Pt to call for fever, untoward pain or cramping. I reviewed any appropriate backup method. Pt to return for recheck as scheduled. to confirm position of IUD and fundal placement, I have ordered a stat ultrasound and I will review results with the patient afterwards.. [id number] Insertion Procedure code (CPT) selection complete Office Meds Mirena 21 mcg/24 hr (up to 8 years) 52 mg intrauterine device Performing Provider: Breann Caraballo CNM Performing Location: [facility] [place] [facility] Administered by: Kwadwo Stephenson CMA on 11/13/24 12:05 Dose Route Admin Location Dispensed Lot Number Expiration Date [facility] [employer] 1 device intrauterine 1 ea [id number] 01/05/27 Results AMB Test Urine AMB Test Urine Negative Last Edit by Kwadwo Stephenson CMA on 11/13/24 11:10 Results Reviewed Results Reviewed: Laboratory Last Values [facility]st Clinic Negative 11/13/24 11:09 Assessment & Plan Assessment & Plan (1) RIDDHI I (cervical intraepithelial neoplasia I): Comment: Persistent status post LEEP cone with post cone ECC, 08/30/2023 Pap is negative with negative HPV.; 10/02/2024 Pap is negative with negative HPV. 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 Code(s): Z30.430 - Encounter for insertion of intrauterine contraceptive device Category: Medical Plan Please see the procedure section and the exam section a stat ultrasound has been ordered to confirm placement of the IUD fundally today and the patient has been instructed to speak with me after the ultrasound so that we can confirm went in and was fundally placed. Orders: Orders AMB HCG Urine Test Today Z32.02 - Encounter for test, result negative US pelvic and transvaginal Today N87.0 - Mild cervical dysplasia, Z30.09 - Encounter for other general counseling and advice on contraception, Z30.430 - Encounter for insertion of intrauterine contraceptive device AMB IUD Insertion/Removal - Practice Supplied Today Z30.430 - Encounter for insertion of intrauterine contraceptive device Coding Level of Care Code Est Pt Level 3 (47763) Diagnoses RIDDHI I (cervical intraepithelial neoplasia I) N87.0 control counseling Z30.09 Encounter for IUD insertion Z30.430 CPT Codes Details - CPT: 93212-EKE Insertion ([id number])
== END 2024-11-13 12:16 | disposition home or self-care (01) ==
LOC: HO.HWS 10:18
PROVIDERS: Visit Provider Advanced Practice Midwife
DX: N87.0 Mild cervical dysplasia (principal); Z30.09 Encounter for other general counseling and advice on contraception; Z30.430 Encounter for insertion of intrauterine contraceptive device; Z32.02 Encounter for pregnancy test, result negative
CPT/HCPCS: 58300; 99213

== ENCOUNTER → 2024-11-13 10:17 | Outpatient (BNVA) | payer BC, MEDICAID, SELFPAY | PROVIDERS: Visit Provider Advanced Practice Midwife | DX: Z30.430 Encounter for insertion of intrauterine contraceptive device (principal); Z30.09 Encounter for other general counseling and advice on contraception; N87.0 Mild cervical dysplasia | CPT/HCPCS: 58300; 81025; J7298 ==

== ENCOUNTER 2024-11-13 14:56 | Outpatient (REF) | payer BC, MEDICAID, SELFPAY ==
--- NOTE | ~2024-11-13 | US_ITS ---
EXAMINATION: US PELVIS TRANSABDOMINAL AND TRANSVAGINAL HISTORY: N87.0 - Mild cervical dysplasia COMPARISON: Correlation is made with a CT of the pelvis with contrast dated 06/27/2024. TECHNIQUE: Transabdominal and endovaginal real-time 2D quintanilla-scale ultrasound was performed. FINDINGS: Uterus: The uterus is normal in size, measuring 5.9 x 3.2 x 4.2 cm. Myometrium has a normal echotexture. No fibroids are identified. Endometrium: The endometrial stripe is not well visualized due to the presence of an IUD. Right ovary: The right ovary is not identified. Left ovary: The left ovary measures 1.7 x 1.3 x 2.3 cm. The left ovary is normal in size and echotexture. There is a 1.1 x 0.9 x 1.5 cm cyst. Pelvic fluid: none. US/US pelvic and transvaginal IMPRESSION: The right ovary is not identified. The endometrial stripe is obscured due to the presence of an IUD. Electronically signed by: Juan Nesbitt MD 11/13/2024 03:34 PM EDT
== END 2024-11-13 14:57 | disposition home or self-care (01) ==
LOC: HO.US 14:56
PROVIDERS: Visit Provider Advanced Practice Midwife
DX: N87.0 Mild cervical dysplasia (principal)
CPT/HCPCS: 76830; 76856

== ENCOUNTER → 2024-11-13 15:01 | Outpatient (BNV) | payer BC, MEDICAID, SELFPAY | PROVIDERS: Visit Provider Radiology Diagnostic Radiology | DX: N87.0 Mild cervical dysplasia (principal) | CPT/HCPCS: 76830; 76856 ==

== ENCOUNTER 2025-03-19 14:23 | Outpatient (AMB) | payer BC, MEDICAID, SELFPAY ==
--- NOTE | 2025-03-19 14:28 | MHC.PC.OV ---
Vital Signs 03/19/25 14:29 Height 4 ft 10 in Weight 194 lb 6 oz BMI 40.6 BP 124/76 Blood Pressure Location Lt brachial Position Sitting Pulse 86 Pulse Source Pulse Oximeter Pulse Oximetry (%) 94 Oxygen Delivery Method Room Air Intake Visit Reasons: Body Pain Director [employer] Required: Yes Director [employer] Systems Language: Liberian Accompanied by: Self / Same As Patient Allergies hydroxyzine Allergy (Mild, Verified 03/19/25 15:19) Rash Medication List - Last Reconciled 03/19/25 by Velma Cardenas PA-C fluticasone propionate 50 mcg/actuation 1 spray intranasal Q12H medroxyprogesterone (Depo-Provera) 150 mg IM Q12W prednisone 40 mg (2 x 20 mg) PO DAILY triamcinolone acetonide 0.1% 1 appl topical DAILY PRN Tobacco use date assessed: 03/19/25 Dental Screening Dental Screen Date: 03/19/25 Did you have a dental visit in the last 12 months?: Yes Did you have a dental problem in the last 6 months where you did not have access to dental care?: No Was dental information given to patient?: Patient has dentist HPI Body Pain HPI Details 44-year-old female with past medical history of Harvey's palsy last seen 07/2024 coming in for acute problem. headstart teacher Velia [id number] was used for the duration of this visit. Presenting with pain in the arms and numbness in the hands. The arm pain began two months ago, located on the side of the bone, extending to the back and down the arm. Described as bone pain, worsened by pressure, with weakness when gripping objects. Reports numbness in both hands, especially in the mornings, ongoing for two months. No recent injuries or repetitive motions; a fall occurred 20 years ago. Reports neck and lower back pain radiating to knees, with fatigue, starting a week ago. New onset of fatigue and body aches, without recent changes or fever. 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 Surgical History Hx of cholecystectomy Hx of appendectomy Family History Mother Liver cancer Social History Household Members: Family Household Members Other:: daughter Housing: House Are you a primary emergency care attendant to a significant other at home: No Do you presently have visiting nurse or other home services: No Alcohol intake: current Alcohol intake frequency: holidays/special occasions only Patient Tobacco Use Status: Never used Tobacco e-Cigarette/Vaping Use: Never Used Second Hand Smoke Exposure: No service: No Current occupational status: employed Current occupation: [employer] Gender identity: Female Cognitive needs: No Hearing needs: No Vision needs: No Female Reproductive History Menstrual Age of Menarche: 12 Questionnaire PHQ-9 Over the last 2 weeks, how often have you been bothered by any of the following problems? 1. Little interest or pleasure in doing things: not at all 2. Feeling down, depressed, or hopeless: not at all 3. Trouble falling or staying asleep, or sleeping too much: not at all 4. Feeling tired or having little energy: not at all 5. Poor appetite or overeating: not at all 6. Feeling bad about yourself - or that you are a failure or have let yourself or your family down: not at all 7. Trouble concentrating on things, such as reading the newspaper or watching television: not at all 8. Moving or speaking so slowly that other people could have noticed. Or the opposite - being so fidgety or restless that you have been moving around a lot more than usual: not at all 9. Thoughts that you would be better off or of hurting yourself in some way: not at all Total score: 0 88790 - PHQ-9 Billing: Yes Source: Developed by Drs. Juan Lomeli, Justine Plasencia, Oziel Mason and colleagues, with an educational gadiel from [employer]. Thrive Questionnaire Date Thrive assessed: 03/19/25 I am a: Patient What is your living situation today?: I have a place to live, but I am worried about losing it in the future Within the past 12 months, did the food you bought not last and you didn't have the money to get more?: Never true Within the past 12 months, did you worry whether your food would run out before you got money to buy more?: Never true Do you have trouble paying for medicines?: No Do you have trouble getting transportation to medical appointments?: No Do you have trouble paying your heating and electricity bill?: No Do you have trouble taking care of your child, family member or friend?: No Do you have trouble with day-to-day activities such as bathing, preparing meals, shopping, managing finances, etc.?: No Are you currently unemployed and looking for a job?: I choose not to answer this question Are you interested in more education?: No Please select the resources that you would like help with: None Currently or been in a relationship where the following occur: No concerns reported THRIVE Score: 1 AUDIT C Alcohol Use Questionnaire (AUDIT-C) 1. How often do you have a drink containing alcohol?: Never 2. How many drinks containing alcohol do you have on a typical day when you are drinking?: 1 or 2 3. How often do you have six or more drinks on one occasion?: Never Total Score: 0 REJI-7 AMB Questionnaire REJI-7 Date REJI - 7 assessed: 03/19/25 Feeling nervous, anxious, or on edge: 0 = Not at all Not being able to stop or control worryin = Not at all Worrying too much about different things: 0 = Not at all Trouble relaxin = Not at all Being so restless that it is hard to sit still: 0 = Not at all Becoming easily annoyed or irritable: 0 = Not at all Feeling afraid as if something awful might happen: 0 = Not at all Total REJI-7 score (0-4 normal; 5-9 mild; 10-14 moderate; 15-21 severe): 0 Source: Developed by Drs. Juan Lomeli, Justine Plasencia, Oziel Mason and colleagues, with an educational gadiel from [employer]. REJI-7 Assessment Billing REJI-7 Assessment Tool: REJI-7 Assessment 45958 Review of Systems Const Denies body aches, Denies chills, Denies fever(s), Denies headache(s), Reports lethargy and Denies poor appetite Eyes Reports no additional complaints ENT Denies dizziness and Denies headache(s) Card Denies chest pain, Denies edema, Denies lightheadedness and Denies dyspnea Resp Denies dyspnea GI Denies abdominal pain, Denies nausea and Denies vomiting Musc Reports as per HPI and Denies abnormal gait Skin/Breast Reports system reviewed and no additional complaints, except as documented Neuro Denies abnormal gait, Denies dizziness and Denies headache(s) Psych Reports no additional complaints Physical exam (Primary Care) Vital Signs: Last Vital Signs Pulse 86 03/19/25 14:29 BP 124/76 03/19/25 14:29 Pulse Ox 94 03/19/25 14:29 Oxygen Delivery Method Room Air 03/19/25 14:29 BMI result Body Mass Index 40.6 Tobacco/Smoking Status: Tobacco use Status Tobacco use date assessed 03/19/25 03/19/25 14:30 Patient Tobacco Use Status Never used Tobacco 03/19/25 14:30 e-Cigarette/Vaping Use Never Used 03/19/25 14:30 PHQ-9: PHQ-9 Score PHQ-9: Total score 0 03/19/25 15:33 Thrive Assessment: Date of Thrive Assessment Date Thrive assessed 03/19/25 03/19/25 14:30 Currently or been in a relationship where the following occur: No concerns reported Const General: cooperative, healthy appearing, comfortable and no acute distress Orientation/consciousness: patient oriented x3 HENMT Head: Yes normocephalic Ears: hearing grossly normal bilaterally General nose exam: Normal external nose present Eyes General: appearance normal, both eyes and all related structures Conjunctivae: conjunctivae normal Neck Neck: Yes full ROM and Yes no lymphadenopathy Resp Effort & Inspection: normal respiratory effort Auscultation: clear to auscultation bilaterally, no crackles, no rales, no rhonchi and no wheezes Cardio Rate: regular rate Rhythm: regular rhythm Back/Spine/Pelvis Other: no tenderness to cervical spine or paraspinal muscles Skin General skin exam: no rashes or lesions noted Neuro General: patient oriented x3 Gait exam (Neuro): Normal gait present Extrem Other: no tenderness to palpation of bilateral shoulder. Mild tenderness to palpation of lateral aspect of yanci elbows. Pos Phalen test bilaterally. Neurovascularly intact in bilateral upper extremities General: Yes normal to inspection, Yes full ROM and No edema Psych Affect: normal affect Attitude: cooperative Insight: Good insight present (Psych) Judgement: Good judgement present (Psych) Coding Level of Care Code Est Pt Level 3 (04548) Diagnoses Bilateral hand numbness R20.0 Body aches R52 Pain of both elbows M25.521; M25.522 Additional Codes REJI-7 Assessment Billing - REJI-7 Assessment Tool: REJI-7 Assessment 79034 ([id number]) PHQ-9 - 13460 - PHQ-9 Billing: Yes ([id number]) Assessment & Plan Assessment & Plan (1) Bilateral hand numbness: Code(s): R20.0 - Anesthesia of skin Category: Medical Plan: A nerve conduction study is planned to assess for carpal tunnel/cubital tunnel syndrome, with wrist splints recommended for nighttime use. Tylenol and ibuprofen are suggested for pain relief. (2) Body aches: Code(s): R52 - Pain, unspecified Category: Medical Plan: For generalized body aches plan to obtain blood work for further evaluation including inflammatory markers and ARIAN. There are no other concerning symptoms for viral infection has been going on for 2 months. (3) Pain of both elbows: Code(s): M25.521 - Pain in right elbow; M25.522 - Pain in left elbow Category: Medical Plan: For arm pain, heating pads and compression sleeves are advised, and the patient should avoid repetitive motions to prevent worsening of possible tendonitis. Plan This note was constructed using voice recognition software. While every effort has been made to ensure accuracy and farm machinery mechanic, still areas may have been included sometimes these areas may affect the content or meeting of the given symptoms. Total time spent caring for the patient today was 20 minutes. This includes time spent before the visit reviewing the chart, time spent during the visit, and time spent after the visit and documentation. Patient was informed and verbally consented to the use of an ambient scribe for clinic note documentation during this visit. Orders: Orders NE nerve conduction velocity 03/19/25 R20.0 - Anesthesia of skin ARIAN Reflex Titer and Pattern 03/19/25 R52 - Pain, unspecified Erythrocyte Sedimentation Rate 03/19/25 R52 - Pain, unspecified C Reactive Protein 03/19/25 R52 - Pain, unspecified NE electromyogram (EMG) 03/19/25 R20.0 - Anesthesia of skin Medications: Discontinued prednisone Discontinued Reason: Patient no longer taking 40 mg (2 x 20 mg) PO DAILY 10 tabs 0RF
[2025-03-19 14:29] VITALS: BP 124/76; PULSE 86; O2SAT 94; BMI 40.6
--- OUTSIDE RECORDS SUMMARY | 2025-03-19 14:52 | XMS_ITS | Encounter Summary ---
Author Organization [facility] Address [address] [place] [address] Phone Care Team Providers Care Grading Machine Feeder Name Role Phone Khalif Henson MD Primary Care Provider [phone] Khalif Henson MD Unavailable [phone] Terrence Morris NP Primary Care Provider [phone] Encounter Details Date Type Department Care Team (Latest Contact Info) Description 05/17/2018 Transcribe Orders [facility] Laboratory [address] [place] [address] Wilian East MD [address] [facility] [address] [place] [address] [email or web address] Abdominal pain, epigastric (Primary Dx) Social History Tobacco Use Types Packs/Day Years Used Date Smoking Tobacco: Never Smokeless Tobacco: Never Comments Unknown Sex and Gender Information Value Date Recorded Sex Assigned at Not on file Legal Sex Female 10:29 PM EDT Gender Identity Not on file Sexual Orientation Not on file Occupation Industry Job Start Date Job End Date Fresh Site Not on file Not on file Not on file documented as of this encounter Plan of Treatment Not on file documented as of this encounter Results * Hepatitis C antibody, qualitative (05/17/2018 11:49 AM EDT) HCV Negative Negative [facility] Comment: This is a screening test and should be confirmed with molecular testing Blood 05/17/2018 11:4 9 AM EDT 05/17/2018 11:54 AM EDT us Wilian East MD LAB BLOOD ORDERABLES Final Result [address] [address] * Hepatitis B surface antibody (05/17/2018 11:49 AM EDT) HBV SURFACE ANTIBODY Negative [facility] Comment: Unvaccinated: Negative Vaccinated: Positive Blood 05/17/2018 11:4 9 AM EDT 05/17/2018 11:54 AM EDT Wilian East MD LAB BLOOD ORDERABLES Final Result Performing Organization Address [facility] Co de Phone Number [address] [address] * Comprehensive metabolic panel (05/17/2018 11:49 AM EDT) SODIUM 139 133 - 146 mmol/L [facility] POTASSIUM 4.6 3.3 - 5.1 mmol/L [facility] CHLORIDE 102 96 - 108 mmol/L [facility] CO2 22 21 - 35 mmol/L [facility] BUN 12 6 - 19 mg/dL [facility] CREATININE 0.50 0.5 - 1.5 mg/dL [facility] GLUCOSE 96 70 - 99 mg/dL [facility] ALBUMIN 4.4 3.9 - 4.8 g/dL [facility] TOTAL PROTEIN 7.8 6.5 - 8.0 g/dL [facility] CALCIUM 9.5 8.4 - 10.3 mg/dL [facility] ALKALINE PHOSPHATASE 60 39 - 117 U/L [facility] TOTAL BILIRUBIN 0.2 0.0 - 1.2 mg/dL [facility] AST 22 0 - 37 U/L [facility] ALT 25 0 - 40 U/L [facility] GLOBULIN 3.4 1 - 4.8 g/dL [facility] EGFR >120 >59 mL/min/1.7 3m2 [facility] Comment:If patient is black, multiply result by 1.159. Estimated glomerular filtration rate calculated using the CKD-EPI equation. ANION GAP 20 10 - 20 mmol/L [facility] Blood 05/17/2018 11:4 9 AM EDT 05/17/2018 11:54 AM EDT Wilian East MD LAB BLOOD ORDERABLES Final Result Performing Organization Address City/[facility]/ZIP Co de Phone Number [address] [address] * (ABNORMAL) CBC (05/17/2018 11:49 AM EDT) WBC 7.75 3.40 - 11.20 K/uL [facility] RBC 4.24 3.80 - 4.80 M/uL [facility] HGB 11.9(L) 12.0 - 15.0 g/dL [facility] HCT 35.9(L) 36.0 - 46.0 % [facility] PLT 368 130 - 400 K/uL [facility] MCV 84.7 79.0 - 98.0 fL [facility] MCH 28.1 27.0 - 34.8 pg [facility] MCHC 33.1 31.5 - 36.0 g/dL [facility] RDW 13.0 10.8 - 14.6 % [facility] MPV 10.0 9.4 - 12.4 fl [facility] NRBC 0.00 /100 WBCs [facility] ABSOLUTE NRBC 0.00 K/uL [facility] Blood 05/17/2018 11:4 9 AM EDT 05/17/2018 11:54 AM EDT Wilian East MD LAB BLOOD ORDERABLES Final Result Performing Organization Address City/[facility]/ZIP Co de Phone Number [address] [address] * Tissue transglutaminase IgA (05/17/2018 11:49 AM EDT) TTG IGA ANTIBODY <1.2 <4.0 (Negative) U/mL [facility] DPT OF LAB MED AND PAT+ Blood 05/17/2018 11:4 9 AM EDT 05/18/2018 9:45 AM EDT us Wilian East MD LAB BLOOD ORDERABLES Final Result [facility] DPT OF LAB MED AND PAT+ [address] [place] [address] * (ABNORMAL) Immunoglobulin A (05/17/2018 11:49 AM EDT) IgA 454(H) 70 - 400 mg/dL [facility] Blood 05/17/2018 11:4 9 AM EDT 05/17/2018 11:54 AM EDT us Wilian East MD LAB BLOOD ORDERABLES Final Result Performing Organization Address City/[facility]/ZIP Co de Phone Number [facility] [address] [place] [address] documented in this encounter Visit Diagnoses Diagnosis Abdominal pain, epigastric- Primary documented in this encounter Additional Health Concerns Assessment Noted Time A Body Mass Index follow-up plan has been documented for the patient 01/05/2018 9:49 AM EDT PHQ-2 Depression Total Score: 0 01/06/20 18 8:24 AM EDT documented as of this encounter Care Teams Grading Machine Feeder Relationship Specialty Start Date End Date Khalif Henson MD [address] [place] [id number] PCP - General Internal Medicine 10/18/17 02/23/19 Terrence Morris NP [address] [place] [id number] PCP - General Family Medicine 02/24/19 Khalif Henson MD [address] [place] [phone] 10/18/17 documented as of this encounter Additional Source Comments The information contained in this document represents components of the legal health record. It is not the complete legal health record.[facility]
== END 2025-03-19 15:55 | disposition home or self-care (01) ==
LOC: HO.HMCH 14:24
DX: R20.0 Anesthesia of skin (principal); M25.521 Pain in right elbow; M25.522 Pain in left elbow

== ENCOUNTER → 2025-03-19 14:23 | Outpatient (BNVA) | payer BC, MEDICAID, SELFPAY | DX: M25.521 Pain in right elbow (principal); M25.522 Pain in left elbow; R20.0 Anesthesia of skin | CPT/HCPCS: 96127 ==

== ENCOUNTER 2025-05-01 07:56 | Outpatient (REF) | payer BC, MEDICAID, SELFPAY ==
--- NOTE | 2025-05-01 07:58 | EMG_ITS ---
Chief complaint: Bilateral hand numbness Reason for referral: Evaluate for Carpal tunnel syndrome Referred by:?ALISIA Scott Procedure done: Bilateral upper extremities NCS/EMG Bilateral median and ulnar motor and sensory studies were performed bilateral radial sensory study was performed and bilateral median and lateral antecubital brachial sensory studies were performed. EMG needle examination was performed. Right median motor distal latencies were slightly prolonged. Right ulnar motor conduction velocity was slow across elbow. Left median mixed distal latency was slightly prolonged. Impression: 1. Mild, right more than left, median neuropathy across carpal tunnel 2. Mild right ulnar neuropathy across elbow MTDD
--- OUTSIDE RECORDS SUMMARY | 2025-05-01 07:59 | XMS_ITS | Encounter Summary ---
Author Organization [facility] Address [address] [place] [address] Phone Care Team Providers Care Contract Loader Name Role Phone Khalif Henson MD Primary Care Provider [phone] Khalif Henson MD Unavailable [phone] Terrence Morris NP Primary Care Provider [phone] Encounter Details Date Type Department Care Team (Late st Contact Info) Description 05/17/2018 Ancillary Orders Virtual Department [address] [place] [address] Wilian East MD [address] [place] [id number] [email or web address] Abdominal pain, epigastric Social History Tobacco Use Types Packs/Day Years Used Date Smoking Tobacco: Never Assessed Comments Unknown Sex and Gender Information Value Date Recorded Sex Assigned at Not on file Legal Sex Female 10:29 PM EDT Gender Identity Not on file Sexual Orientation Not on file documented as of this encounter Plan of Treatment Not on file documented as of this encounter Visit Diagnoses Diagnosis Abdominal pain, epigastric documented in this encounter Additional Health Concerns Assessment Noted Time A Body Mass Index follow-up plan has been documented for the patient 01/05/2018 9:49 AM EDT PHQ-2 Depression Total Score: 0 01/06/20 18 8:24 AM EDT documented as of this encounter Care Teams Contract Loader Relationship Specialty Start Date End Date Khalif Henson MD [address] [place] [address] [email or web address] PCP - General Internal Medicine 10/18/17 02/23/19 Terrence Morris NP [address] [place] [id number] PCP - General Family Medicine 02/24/19 Khalif Henson MD [address] [place] [address], [address] [place] [address] [email or web address] 10/[email or web address]/17 documented as of this encounter Additional Source Comments The information contained in this document represents components of the legal health record. It is not the complete legal health record.[facility]
--- OUTSIDE RECORDS SUMMARY | 2025-05-01 07:59 | XMS_ITS | Encounter Summary ---
Author Organization [facility] Address [address] [place] [address] Phone Care Team Providers Care Fire Control Assistant Name Role Phone Khalif Henson MD Primary Care Provider [phone] Khalif Henson MD Unavailable [phone] Terrence Morris NP Primary Care Provider [phone] Encounter Details Date Type Department Care Team (Latest Contact Info) Description 05/17/2018 Transcribe Orders [facility] [address] 2nd [place] [address] Wilian East MD [address] [facility] 2 [place] [address] [email or web address] Abdominal pain, epigastric (Primary Dx) Social History [...] (05/17/2018 11:49 AM EDT) HCV Negative Negative [facility] Comment: This is a screening test and should be confirmed with molecular testing Blood 05/17/2018 11:4 9 AM EDT 05/17/2018 11:54 AM EDT us Wilian East MD LAB BLOOD ORDERABLES Final Result [address] [address] * Hepatitis B surface antibody (05/17/2018 11:49 AM EDT) HBV SURFACE ANTIBODY Negative [facility] Comment: Unvaccinated: Negative Vaccinated: Positive Blood 05/17/2018 11:4 9 AM EDT 05/17/2018 11:54 AM EDT Wilian East MD LAB BLOOD ORDERABLES Final Result Performing Organization Address [facility] Co de Phone Number [address] [address] * Comprehensive metabolic panel (05/17/2018 11:49 AM EDT) SODIUM 139 133 - 146 mmol/L [facility] POTASSIUM 4.6 3.3 - 5.1 mmol/L [facility] CHLORIDE 102 96 - 108 mmol/L [facility] CO2 22 21 - 35 mmol/L [facility] BUN 12 6 - 19 mg/dL [facility] CREATININE 0.50 0.5 - 1.5 mg/dL [facility] GLUCOSE 96 70 - 99 mg/dL [facility] ALBUMIN 4.4 3.9 - 4.8 g/dL [facility] TOTAL PROTEIN 7.8 6.5 - 8.0 g/dL [facility] CALCIUM 9.5 8.4 - 10.3 mg/dL [facility] ALKALINE PHOSPHATASE 60 39 - 117 U/L [facility] TOTAL BILIRUBIN 0.2 0.0 - 1.2 mg/dL [facility] AST 22 0 - 37 U/L [facility] ALT 25 0 - 40 U/L [facility] GLOBULIN 3.4 1 - 4.8 g/dL [facility] EGFR >120 >59 mL/min/1.7 3m2 [facility] Comment:If patient is black, multiply result by 1.159. Estimated glomerular filtration rate calculated using the CKD-EPI equation. ANION GAP 20 10 - 20 mmol/L [facility] Blood 05/17/2018 11:4 9 AM EDT 05/17/2018 11:54 AM EDT Wilian East MD LAB BLOOD ORDERABLES Final Result Performing Organization Address City/[facility] Co de Phone Number [address] [address] * (ABNORMAL) CBC (05/17/2018 11:49 AM EDT) WBC 7.75 3.40 - 11.20 K/uL [facility] RBC 4.24 3.80 - 4.80 M/uL [facility] HGB 11.9(L) 12.0 - 15.0 g/dL [facility] HCT 35.9(L) 36.0 - 46.0 % [facility] PLT 368 130 - 400 K/uL [facility] MCV 84.7 79.0 - 98.0 fL [facility] MCH 28.1 27.0 - 34.8 pg [facility] MCHC 33.1 31.5 - 36.0 g/dL [facility] RDW 13.0 10.8 - 14.6 % [facility] MPV 10.0 9.4 - 12.4 fl [facility] NRBC 0.00 /100 WBCs [facility] ABSOLUTE NRBC 0.00 K/uL [facility] Blood 05/17/2018 11:4 9 AM EDT 05/17/2018 11:54 AM EDT us Wilian East MD LAB BLOOD ORDERABLES Final Result Performing Organization Address City/[facility]/ZIP Co de Phone Number [address] [address] * Tissue transglutaminase IgA (05/17/2018 11:49 AM EDT) TTG IGA ANTIBODY <1.2 <4.0 (Negative) U/mL [facility] DPT OF LAB MED AND PAT+ Blood 05/17/2018 11:4 9 AM EDT 05/18/2018 9:45 AM EDT us Wilian East MD LAB BLOOD ORDERABLES Final Result [facility] DPT OF LAB MED AND PAT+ [address] [place] [address] * (ABNORMAL) Immunoglobulin A (05/17/2018 11:49 AM EDT) IgA 454(H) 70 - 400 mg/dL [facility] Blood 05/17/2018 11:4 9 AM EDT 05/17/2018 11:54 AM EDT us Wilian East MD LAB BLOOD ORDERABLES Final Result Performing Organization Address City/[facility] Co de Phone Number [facility] [address] [place] [address] documented in this encounter Visit Diagnoses Diagnosis Abdominal pain, epigastric- Primary documented in this encounter Additional Health Concerns Assessment Noted Time A Body Mass Index follow-up plan has been documented for the patient 01/05/2018 9:49 AM EDT PHQ-2 Depression Total Score: 0 01/06/20 18 8:24 AM EDT documented as of this encounter Care Teams Fire Control Assistant Relationship Specialty Start Date End Date Khalif Henson MD [address] [place] [address] PCP - General Internal Medicine 10/18/17 02/23/19 Terrence Morris NP [address] [place] [address] PCP - General Family Medicine 02/24/19 Khalif Henson MD [address] [place] [address], [address] [place] [address] 10/18/17 documented as of this encounter Additional Source Comments The information contained in this document represents components of the legal health record. It is not the complete legal health record.[facility]
--- OUTSIDE RECORDS SUMMARY | 2025-05-01 07:59 | XMS_ITS | Encounter Summary ---
Author Organization [facility] Address [address] [place] [address] Phone Care Team Providers Care Tandem Operator Name Role Phone Khalif Henson MD Primary Care Provider [phone] Khalif Henson MD Unavailable [phone] Terrence Morris NP Primary Care Provider [phone] Encounter Details Date Type Department Care Team (Late st Contact Info) Description 06/06/2018 Ancillary Orders Virtual Department [address] [place] [address] Wilian East MD [address] [place] [address] [email or web address] Epigastric pain Social History Tobacco Use Types Packs/Day Years [...] documented as of this encounter Results * US ABDOMEN LIMITED RIGHT UPPER QUADRANT (06/06/2018 11:02 AM EDT) Anatomical Region Laterality Modality Abdomen Ultrasound 06/06/2018 11:0 8 AM EDT Impressions 06/06/2018 12:21 PM EDT Prominently echogenic liver, most commonly associated with hepatic steatosis. No biliary dilatation. POS - [id number] Edited by: Carol Villasenor on 06/06/2018 11:14 AM Narrative 06/06/2018 12:21 PM EDT COMPARISON: None TECHNIQUE: Ultrasonic examination of the abdomen was performed and multiple static images obtained. FINDINGS: Pancreas: No abnormality detected. Upper Aorta and IVC: No finding of concern detected in the visualized portions. Gallbladder and Biliary tree: Status post cholecystectomy. No biliary dilatation. Common bile duct measured at 5 mm. Liver: Hepatic parenchyma is heterogeneous and prominently hyperechoic relative to renal cortical echogenicity. This is typically associated with hepatic steatosis but can be seen in hepatitis and other hepatocellular abnormalities. Right kidney: No hydronephrosis in limited imaging. Lower pole not well seen. Other: No ascites. Procedure Note Kiran Lamar MD - 06/06/2018 COMPARISON: None TECHNIQUE: Ultrasonic examination of the abdomen was performed andmultiple static images obtained. FINDINGS: Pancreas: No abnormality detected. Upper Aorta and IVC: No finding of concern detected in the visualizedportions. Gallbladder and Biliary tree: Status post cholecystectomy. No biliarydilatation. Common bile duct measured at 5 mm. Liver: Hepatic parenchyma is heterogeneous and prominently hyperechoicrelative to renal cortical echogenicity. This is typically associated withhepatic steatosis but can be seen in hepatitis and other hepatocellularabnormalities. Right kidney: No hydronephrosis in limited imaging. Lower pole not wellseen. Other: No ascites. IMPRESSION: Prominently echogenic liver, most commonly associated with hepaticsteatosis. No biliary dilatation. POS - [id number] Edited by: Carol Villasenor on 06/06/2018 11:14 AM us Wilian East MD IMG US ABDOMEN Final Resu lt documented in this encounter Visit Diagnoses Diagnosis Epigastric pain Abdominal pain, epigastric Epigastric pain Abdominal pain, epigastric documented in this encounter Additional Health Concerns Assessment Noted Time A Body Mass Index follow-up plan has been documented for the patient 01/05/2018 9:49 AM EDT PHQ-2 Depression Total Score: 0 01/06/20 18 8:24 AM EDT documented as of this encounter Care Teams Tandem Operator Relationship Specialty Start Date End Date Khalif Henson MD [address] [place] [address], [address] [place] [address] [email or web address] PCP - General Internal Medicine 10/18/17 02/23/19 Terrence Morris NP [address] [place] [address] PCP - General Family Medicine 02/24/19 Khalif Henson MD [address] [place] [address], [address] [place] [address] [email or web address] 10/18/17 documented as of this encounter Additional Source Comments The information contained in this document represents components of the legal health record. It is not the complete legal health record.[facility]
--- OUTSIDE RECORDS SUMMARY | 2025-05-01 07:59 | XMS_ITS | Clinical Summary ---
Author Organization [facility] Address [address] [place] [address] Phone Care Team Providers Care Production Cell Leader Name Role Phone Khalif Henson MD Unavailable [phone] Terrence Morris NP Primary Care Provider [phone] Allergies No known active allergies Medications omeprazole (PRILOSEC) 20 MG tabletIndication s:PRN Take 20 mg by mouth daily. Indications : PRN Active Immunizations Immunization Administration Dates Next Due COVID-19 (Pre-05/31) Socrates Vaccine, [id number], P F 11/16/2020 Influenza Quadrivalent MDCK Preservative Free IM 05/26/2017 Td (adult),2 Lf Tetanus Toxoid, PF, Adsorbed 08/2017 Family History Medical History Relation Comments Kidney failure Father Liver cancer Mother Diabetes mellitus Sister Relation Status Comments Father Mother Sister Social History Tobacco Use Types Packs/Day Years Used Date Smoking Tobacco: Never Smokeless Tobacco: Never Education Answer Date Recorded Are you interested in more education? Not on percy e 12/04/2022 Are you concerned about learning? Not on file 12/04/2022 No 12/04/2022 No 12/04/2022 Digital Access Answer Date Recorded No 01/02/2023 No 01/02/2023 No 01/02/2023 Reliable internet access at home? Not on file 01/02/2023 Device with a working camera? Not on file Comments Unknown Sex and Gender Information Value Date Recorded Sex Assigned at Not on file Legal Sex Female 10:29 PM EDT Gender Identity Not on file Sexual Orientation Not on file Occupation Industry Job Start Date Job End Date Fresh Site Not on file Not on file Not on file Last Filed Vital Signs Vital Sign Reading Time Taken Comments Blood Pressure 100/52 01/03/2020 3:20 PM EDT Pulse 76 01/03/2020 3:20 PM EDT Temperature 36.6 C (97.9 F) 01/03/2020 3:20 PM EDT Respiratory Rate 26 01/03/2020 3:20 PM EDT Oxygen Saturation 98% 01/03/2020 3:20 PM EDT Inhaled Oxygen Concentration - - Weight 70.8 kg (156 lb) 10/10/2018 3:35 PM EST Height 154.9 cm (5' 1 ) 07/21/2018 3:22 PM EST Body Mass Index 29.48 07/21/2018 3:22 PM EST Plan of Treatment Health Maintenance Due Date Last Done Comments HIV ONE-TIME SCREENING (18-6 5 YEARS) 1999 DEPRESSION SCREENING 01/05/2019 01/05/2018 PAP SMEAR 01/05/2021 01/05/2018, 01/05/2018 MAMMOGRAM 2021 INFLUENZA VACCINE (#1) 2025 05/26/2017 COVID-19 VACCINE (3 - 2024-2 6 season) 2025 07/17/2021, 11/16/2020 Adult Td,Tdap Booster 09/09/2027 09/09/2017 HEPATITIS C SCREENING Completed 05/17/2018 SMOKING STATUS SCREENING (On ce After 26 Yrs) Completed 02/24/2019 HEPATITIS A VACCINES Aged Out No long er eligible based on patient's age to complete this topic HIB VACCINES Aged Out No longer eligi ble based on patient's age to complete this topic MENINGOCOCCAL VACCINES (ACWY) Aged Out No longer eligible based on patient's age to complete this topic MENINGOCOCCAL VACCINES (B) Aged Out N o longer eligible based on patient's age to complete this topic PNEUMOCOCCAL VACCINES (0-49 years) Aged Out No longer eligible b ased on patient's age to complete this topic Medical Devices Not on file Procedures Procedure Name Priority Date/Time Associated Diagnosis Comments HEPATITIS C ANTIBODY, QUALITATIVE Routine 05/17/2018 11:49 AM EDT Abdominal pain, epigastric PAP TEST Routine 01/05/2018 12:00 AM EDT from Last 3 Months or Most Recently Relevant to Health Maintenance Results * Hepatitis C antibody, qualitative (05/17/2018 11:49 AM EDT) HCV Negative Negative [facility] Comment: This is a screening test and should be confirmed with molecular testing Blood 05/17/2018 11:4 9 AM EDT 05/17/2018 11:54 AM EDT Wilian East MD LAB BLOOD ORDERABLES Final Result Performing Organization Address City/State/[facility] Co de Phone Number [address] [address] * Pap Smear (01/05/2018 12:00 AM EDT) 01/05/2018 01/06/2018 2:3 3 PM EDT Narrative SEE NARRATIVE - 01/12/2018 2:51 PM EDT [address] [address] Bottom Brusher: Holly Feldman MD REPORTING MANAGER Cytology Report FINAL DIAGNOSIS A. PAP SMEAR (SUREPATH) C: SPECIMEN ADEQUACY: Satisfactory for evaluation; transformation zone absent/insufficient. INTERPRETATION: NEGATIVE FOR INTRAEPITHELIAL LESION OR MALIGNANCY. Electronically Signed Out By: ELLI Duncan(ASCP) The Pap test is a screening test primarily for squamous cancers and precursors and has associated false-negative and false-positive results. New technologies such as liquid-based preparations may decrease but will not eliminate all false-negative results. Regular sampling and follow-up of unexplained clinical signs and symptoms are recommended to minimize false negative results. PROCEDURES/ADDENDA HPV Testing (Requested) Ordered Date: 01/06/2018 HPV TEST Positive for human papillomavirus with the Other high risk (non- type 16 or 18) probe set (Includes 31, 33, 35, 39, 45, 51, 52, 56, 58, 59, 66, 68) by Edwin cobase 4800 HR-HPV analysis. Negative for high risk human papillomavirus types 16 and 18 by Edwin cobase 4800 HR-HPV analysis. Clinical correlation is advised. This HPV test was performed at [facility], [address] [place] [address]. The accuracy and precision of this test has been verified in the Cytopathology laboratory of the [facility]. This test has not been cleared or approved by the U.S. Food and Drug Administration (FDA). CLINICAL HISTORY Date of Last Menstrual Period: Unknown Contraceptive History: Other: Has Nexplanon. Other Clinical Conditions: Screening Pap SPECIMEN SOURCE A: PAP SMEAR (SUREPATH) C Patient Name: ABRAN MELENDEZ : 1980 (Age: 37) Sex: F Institution: [facility] Location: [facility] Date of Collection: 01/05/2018 Date of Reported: 01/11/2018 11:26 Results to: Khalif Henson MD Khalif Henson MD CYTOLOGY ORDERABLES Edited Result - Final SEE NARRATIVE from Last 3 Months or Most Recently Relevant to Health Maintenance [place] [address] [place] [address] [facility] [place] [address] [address] [place] [address] [facility] Care Teams Production Cell Leader Relationship Specialty Start Date End Date Terrence Morris NP [address] [place] [address] PCP - General Family Medicine 02/24/19 Khalif Henson MD [address] [place] [address], [address] Floor [place], [place] 10/18/17 Additional Source Comments The information contained in this document represents components of the legal health record. It is not the complete legal health record.[facility]
--- OUTSIDE RECORDS SUMMARY | 2025-05-01 07:59 | XMS_ITS | Encounter Summary ---
Author Organization [facility] Address [address] [place] [address] Phone Care Team Providers Care Binding Folder Machine Name Role Phone Khalif Henson MD Primary Care Provider [phone] Khalif Henson MD Unavailable [phone] Terrence Morris NP Primary Care Provider [phone] Encounter Details Date Type Department Care Team (Late st Contact Info) Description 07/21/2018 Procedure Pass [facility] Endoscopy Admitting Dept Virtual Department [address] [place] [address] Social History Tobacco Use Types Packs/Day Years [...] documented as of this encounter Visit Diagnoses Not on filedocumented in this encounter Additional Health Concerns Assessment Noted Time A Body Mass Index follow-up plan has been documented for the patient 01/05/2018 9:49 AM EDT PHQ-2 Depression Total Score: 0 01/06/20 18 8:24 AM EDT documented as of this encounter Care Teams Binding Folder Machine Relationship Specialty Start Date End Date Khalif Henson MD [address] [facility], 2nd [place] [address] PCP - General Internal Medicine 10/18/17 02/23/19 Terrence Morris NP [address] [place] [address] PCP - General Family Medicine 02/24/19 Khalif Henson MD [address] [place] [address], [address] [place] [address] 10/18/17 documented as of this encounter Additional Source Comments The information contained in this document represents components of the legal health record. It is not the complete legal health record.[facility]
--- OUTSIDE RECORDS SUMMARY | 2025-05-01 07:59 | XMS_ITS | Encounter Summary ---
Author Organization [facility] Address [address] [place] [address] Phone Care Team Providers Care Call Center Operations Manager Name Role Phone Khalif Henson MD Primary Care Provider [phone] Khalif Henson MD Unavailable [phone] Terrence Morris NP Primary Care Provider [phone] Encounter Details Date Type Department Care Team (Late st Contact Info) Description 05/25/2018 Ancillary Orders Virtual Department [address] [place] [address] Wilian East MD [address] [place] [address] [email or web address] Epigastric pain Social History Tobacco Use Types [...] as of this encounter Visit Diagnoses Diagnosis Epigastric pain Abdominal pain, epigastric documented in this encounter Additional Health Concerns Assessment Noted Time A Body Mass Index follow-up plan has been documented for the patient 01/05/2018 9:49 AM EDT PHQ-2 Depression Total Score: 0 01/06/20 18 8:24 AM EDT documented as of this encounter Care Teams Call Center Operations Manager Relationship Specialty Start Date End Date Khalif Henson MD [address] [place] [address], [address] [place] [address] PCP - General Internal Medicine 10/18/17 02/23/19 Terrence Morris NP [address] [place] [address] PCP - General Family Medicine 02/24/19 Khalif Henson MD [address] [place] [address], [address] [place] [address] 10/18/17 documented as of this encounter Additional Source Comments The information contained in this document represents components of the legal health record. It is not the complete legal health record.[facility]
== END 2025-05-01 07:57 | disposition home or self-care (01) ==
LOC: HO.NEURO 07:56
DX: R20.0 Anesthesia of skin (principal); G56.13 Other lesions of median nerve, bilateral upper limbs; G56.21 Lesion of ulnar nerve, right upper limb
CPT/HCPCS: 95886; 95913

== ENCOUNTER → 2025-05-01 07:58 | Outpatient (BNV) | payer BC, MEDICAID, SELFPAY | PROVIDERS: Visit Provider Psychiatry & Neurology Neurology | DX: R20.0 Anesthesia of skin (principal) | CPT/HCPCS: 95886; 95912 ==

== ENCOUNTER 2025-05-23 08:13 | Outpatient (AMB) | payer BC, MEDICAID, SELFPAY ==
--- NOTE | 2025-05-23 08:29 | A.OFFVIS_ITS ---
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 Patient reports that she has had pain, numbness, tingling and weakness in bilteral upper extremities ongoing for about 4 months now. Denies injury. EMG/NCS done 05/01/25 Impression: 1. Mild, right more than left, median neuropathy across carpal tunnel 2. 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 Patient reports that she has had pain, numbness, tingling and weakness in bilteral upper extremities ongoing for about 4 months now. Denies injury. EMG/NCS done 05/01/25 Impression: 1. Mild, right more than left, median neuropathy across carpal tunnel 2. Mild right ulnar neuropathy across elbow PFSH Medical History (Updated 05/30/25 @ 10:56 by ALISIA Fernandes) Facial paralysis/Tifton palsy Surgical History (Updated 05/29/25 @ 09:35 by Chula Malin CMA) History of endoscopy Hx of cholecystectomy Hx of appendectomy Family History Mother Liver cancer Social History Household Members: Family Household Members Other:: daughter Housing: House Are you a primary manager primary care to a significant other at home: No Do you presently have visiting nurse or other home services: No Alcohol intake: current Alcohol intake frequency: holidays/special occasions only Patient Tobacco Use Status: Never used Tobacco e-Cigarette/Vaping Use: Never Used Second Hand Smoke Exposure: No service: No Current occupational status: employed 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 Normal sensation to all other digits in the left hand today. No thenar or intrinsic wasting. Good APB muscle firing and good finger cross. Vascular: Capillary refill brisk. ROM: Patient can make a fist and extend all their digits. Skin: No lacerations or abrasions noted. General: No ecchymosis. No erythema or evidence of infection. Assessment & Plan Assessment & Plan (1) Left carpal tunnel syndrome: Code(s): G56.02 - Carpal tunnel syndrome, left upper limb Category: Medical (2) Cubital tunnel syndrome on left: Code(s): G56.22 - Lesion of ulnar nerve, left upper limb Category: Medical Plan 1. Left carpal tunnel syndrome Symptoms intermittent, daily, worse at night I educated the patient about the condition. I discussed both operative and nonoperative treatment options. The patient would like to proceed with surgery. The risks and benefits of operative treatment were discussed with the patient and the patient wishes to proceed with surgery. These risks include, but are not limited to, risk of damage to blood vessels, nerves, tendons, infection, recurrence, incomplete relief of preoperative symptoms, persistent pain, possible need for further surgery, and the risks associated with regional blocks and/or anesthesia. Plan is to take the patient to the operating room at some point in the next few weeks for the following procedures: 1. Left carpal tunnel release under local All of the preoperative paperwork including the consent was discussed today. All of the patient's questions were answered in the clinic today. The patient understands that they will be in contact with our neurosurgical nurse practitioner to discuss scheduling their procedure. Patient denies diabetes, blood thinners, asthma, heart issues, lung issues, kidney issues, or current smoking. 1. Left cubital tunnel syndrome Patient asymptomatic Due to lack of symptoms, no acute surgical intervention indicated Patient is educated if she begins to experience numbness and tingling in his distribution, she should call us for reassessment Patient understands this and is amenable to this plan Coding Level of Care Code New Pt Level 4 (11922) Diagnoses Left carpal tunnel syndrome G56.02 Cubital tunnel syndrome on left G56.22
[2025-05-23 08:30] VITALS: BMI 40.5
--- OUTSIDE RECORDS SUMMARY | 2025-05-23 08:30 | XMS_ITS | Clinical Summary ---
Author Organization [facility] Address [address] [place] [address] Phone Care Team Providers Care Lpn Instructor Name Role Phone Khalif Henson MD Unavailable [phone] Terrence Morris NP Primary Care Provider [phone] Allergies No known active allergies Medications omeprazole [...] (05/17/2018 11:49 AM EDT) HCV Negative Negative [facility] Comment: This is a screening test and should be confirmed with molecular testing Blood 05/17/2018 11:4 9 AM EDT 05/17/2018 11:54 AM EDT Wilian East MD LAB BLOOD ORDERABLES Final Result Performing Organization Address City/State/[facility] Co de Phone Number [address] [address] * Pap Smear (01/05/2018 12:00 AM EDT) 01/05/2018 01/06/2018 2:3 3 PM EDT Narrative SEE NARRATIVE - 01/12/2018 2:51 PM EDT [address] [address] Hydraulic Miner: Holly Feldman MD MOLD STAMPER Cytology Report FINAL DIAGNOSIS A. PAP SMEAR [...] advised. This HPV test was performed at [facility], [address] [place] [address]. The accuracy and precision of this test has been verified in the Cytopathology laboratory of the [facility]. This test has not been cleared or approved by the U.S. Food and Drug Administration (FDA). CLINICAL HISTORY Date of Last Menstrual Period: Unknown Contraceptive History: Other: Has Nexplanon. Other Clinical Conditions: Screening Pap SPECIMEN SOURCE A: PAP SMEAR (SUREPATH) C Patient Name: ABRAN MELENDEZ : 1980 (Age: 37) Sex: F Institution: [facility] Location: [facility] Date of Collection: 01/05/2018 Date of Reported: 01/11/2018 11:26 Results to: Khalif Henson MD Khalif Henson MD CYTOLOGY ORDERABLES Edited Result - Final SEE NARRATIVE from Last 3 Months or Most Recently Relevant to Health Maintenance Insurance [place] [address] [facility] [place] [address] [place] [address] [facility] Care Teams Lpn Instructor Relationship Specialty Start Date End Date Terrence Morris NP [address] [place] [address] PCP - General Family Medicine 02/24/19 Khalif Henson MD [address] [place] [address], [address] Floor [place], [place] 10/18/17 Additional Source Comments The information contained in this document represents components of the legal health record. It is not the complete legal health record.[facility]
--- OUTSIDE RECORDS SUMMARY | 2025-05-23 08:30 | XMS_ITS | Encounter Summary ---
Author Organization [facility] Address [address] [place] [address] Phone Care Team Providers Care Prefabricated Houses Trimmer Name Role Phone Khalif Henson MD Primary Care Provider [phone] Khalif Henson MD Unavailable [phone] Terrence Morris NP Primary Care Provider [phone] Encounter Details Date Type Department Care Team (Latest Contact Info) Description 05/17/2018 Transcribe Orders [facility] [address] 2nd [place] [address] Wilian East MD [address] [facility] [address] [place] [address] [email or web address] Abdominal pain, epigastric (Primary Dx) Social History [...] (05/17/2018 11:49 AM EDT) HCV Negative Negative [facility] Comment: This is a screening test and should be confirmed with molecular testing Blood 05/17/2018 11:4 9 AM EDT 05/17/2018 11:54 AM EDT us Wilian East MD LAB BLOOD ORDERABLES Final Result [address] [address] * Hepatitis B surface antibody (05/17/2018 11:49 AM EDT) HBV SURFACE ANTIBODY Negative [facility] Comment: Unvaccinated: Negative Vaccinated: Positive Blood 05/17/2018 11:4 9 AM EDT 05/17/2018 11:54 AM EDT Wilian East MD LAB BLOOD ORDERABLES Final Result Performing Organization Address [facility] Co de Phone Number [address] [address] * Comprehensive metabolic panel (05/17/2018 11:49 AM EDT) SODIUM 139 133 - 146 mmol/L [facility] POTASSIUM 4.6 3.3 - 5.1 mmol/L [facility] CHLORIDE 102 96 - 108 mmol/L [facility] CO2 22 21 - 35 mmol/L [facility] BUN 12 6 - 19 mg/dL [facility] CREATININE 0.50 0.5 - 1.5 mg/dL [facility] GLUCOSE 96 70 - 99 mg/dL [facility] ALBUMIN 4.4 3.9 - 4.8 g/dL [facility] TOTAL PROTEIN 7.8 6.5 - 8.0 g/dL [facility] CALCIUM 9.5 8.4 - 10.3 mg/dL [facility] ALKALINE PHOSPHATASE 60 39 - 117 U/L [facility] TOTAL BILIRUBIN 0.2 0.0 - 1.2 mg/dL [facility] AST 22 0 - 37 U/L [facility] ALT 25 0 - 40 U/L [facility] GLOBULIN 3.4 1 - 4.8 g/dL [facility] EGFR >120 >59 mL/min/1.7 3m2 [facility] Comment:If patient is black, multiply result by 1.159. Estimated glomerular filtration rate calculated using the CKD-EPI equation. ANION GAP 20 10 - 20 mmol/L [facility] Blood 05/17/2018 11:4 9 AM EDT 05/17/2018 11:54 AM EDT Wilian East MD LAB BLOOD ORDERABLES Final Result Performing Organization Address City/[facility] Co de Phone Number [address] [address] * (ABNORMAL) CBC (05/17/2018 11:49 AM EDT) WBC 7.75 3.40 - 11.20 K/uL [facility] RBC 4.24 3.80 - 4.80 M/uL [facility] HGB 11.9(L) 12.0 - 15.0 g/dL [facility] HCT 35.9(L) 36.0 - 46.0 % [facility] PLT 368 130 - 400 K/uL [facility] MCV 84.7 79.0 - 98.0 fL [facility] MCH 28.1 27.0 - 34.8 pg [facility] MCHC 33.1 31.5 - 36.0 g/dL [facility] RDW 13.0 10.8 - 14.6 % [facility] MPV 10.0 9.4 - 12.4 fl [facility] NRBC 0.00 /100 WBCs [facility] ABSOLUTE NRBC 0.00 K/uL [facility] Blood 05/17/2018 11:4 9 AM EDT 05/17/2018 11:54 AM EDT us Wilian East MD LAB BLOOD ORDERABLES Final Result Performing Organization Address City/[facility]/ZIP Co de Phone Number [address] [address] * Tissue transglutaminase IgA (05/17/2018 11:49 AM EDT) TTG IGA ANTIBODY <1.2 <4.0 (Negative) U/mL [facility] DPT OF LAB MED AND PAT+ Blood 05/17/2018 11:4 9 AM EDT 05/18/2018 9:45 AM EDT us Wilian East MD LAB BLOOD ORDERABLES Final Result [facility] DPT OF LAB MED AND PAT+ [address] [place] [address] * (ABNORMAL) Immunoglobulin A (05/17/2018 11:49 AM EDT) IgA 454(H) 70 - 400 mg/dL [facility] Blood 05/17/2018 11:4 9 AM EDT 05/17/2018 11:54 AM EDT us Wilian East MD LAB BLOOD ORDERABLES Final Result Performing Organization Address City/[facility] Co de Phone Number [facility] [address] [place] [address] documented in this encounter Visit Diagnoses Diagnosis Abdominal pain, epigastric- Primary documented in this encounter Additional Health Concerns Assessment Noted Time A Body Mass Index follow-up plan has been documented for the patient 01/05/2018 9:49 AM EDT PHQ-2 Depression Total Score: 0 01/06/20 18 8:24 AM EDT documented as of this encounter Care Teams Prefabricated Houses Trimmer Relationship Specialty Start Date End Date Khalif Henson MD [address] [place] [address] PCP - General Internal Medicine 10/18/17 02/23/19 Terrence Morris NP [address] [place] [address] PCP - General Family Medicine 02/24/19 Khalif Henson MD [address] [place] [address], [address] [place] [address] 10/18/17 documented as of this encounter Additional Source Comments The information contained in this document represents components of the legal health record. It is not the complete legal health record.[facility]
--- OUTSIDE RECORDS SUMMARY | 2025-05-23 08:30 | XMS_ITS | Encounter Summary ---
Author Organization [facility] Address [address] [place] [address] Phone Care Team Providers Care Elevator Constructor Helper Name Role Phone Khalif Henson MD Primary Care Provider [phone] Khalif Henson MD Unavailable [phone] Terrence Morris NP Primary Care Provider [phone] Encounter Details Date Type Department Care Team (Late st Contact Info) Description 05/25/2018 Ancillary Orders Virtual Department [address] [place] [address] Wilina East MD [address] [place] [address] [email or web address] Epigastric pain Social History Tobacco Use Types [...] documented as of this encounter Care Teams Elevator Constructor Helper Relationship Specialty Start Date End Date Khalif Henson MD [address] [place] [address], [address] [place] [address] [email or web address] PCP - General Internal Medicine 10/18/17 02/23/19 Terrence Morris NP [address] [place] [address] PCP - General Family Medicine 02/24/19 Khalif Henson MD [address] [place] [address], [address] [place] [address] 10/18/17 documented as of this encounter Additional Source Comments The information contained in this document represents components of the legal health record. It is not the complete legal health record.[facility]
--- OUTSIDE RECORDS SUMMARY | 2025-05-23 08:31 | XMS_ITS | Encounter Summary ---
Author Organization [facility] Address [address] [facility] [address] [place] [address] Phone Care Team Providers Care Waste Salvager Name Role Phone Khalif Henson MD Primary Care Provider [phone] Khalif Henson MD Unavailable [phone] Terrence Morris NP Primary Care Provider [phone] Encounter Details Date Type Department Care Team (Late st Contact Info) Description 07/21/2018 Procedure Pass [facility] Endoscopy Admitting Dept Virtual Department [address] [place] [address] Social History Tobacco Use Types Packs/Day Years [...] documented as of this encounter Care Teams Waste Salvager Relationship Specialty Start Date End Date Khalif Henson MD [address] [facility], 2nd [place] [address] PCP - General Internal Medicine 10/18/17 02/23/19 Terrence Morris NP [address] [place] [address] PCP - General Family Medicine 02/24/19 Khalif Henson MD [address] [place] [address], 2[address] [place] [address] 10/18/17 documented as of this encounter Additional Source Comments The information contained in this document represents components of the legal health record. It is not the complete legal health record.[facility]
--- OUTSIDE RECORDS SUMMARY | 2025-05-23 08:31 | XMS_ITS | Encounter Summary ---
Author Organization [facility] Address [address] [facility] [address] [place] [address] Phone Care Team Providers Care Distribution Designer Name Role Phone Khalif Henson MD Primary Care Provider [phone] Khalif Henson MD Unavailable [phone] Terrence Morris NP Primary Care Provider [phone] Encounter Details Date Type Department Care Team (Late st Contact Info) Description 05/17/2018 Ancillary Orders Virtual Department [address] [place] [address] Wilian East MD [address] [place] [address] [email or web address] Abdominal pain, epigastric Social History Tobacco Use [...] documented as of this encounter Care Teams Distribution Designer Relationship Specialty Start Date End Date Khalif Henson MD [address] [facility], 2nd [place] [address] PCP - General Internal Medicine 10/18/17 02/23/19 Terrence Morris NP [address] [place] [address] PCP - General Family Medicine 02/24/19 Khalif Henson MD [address] [place] [address], [address] [place] [address] 10/18/17 documented as of this encounter Additional Source Comments The information contained in this document represents components of the legal health record. It is not the complete legal health record.[facility]
--- OUTSIDE RECORDS SUMMARY | 2025-05-23 08:31 | XMS_ITS | Encounter Summary ---
Author Organization [facility] Address [address] [place] [address] Phone Care Team Providers Care Director Outcomes Name Role Phone Khalif Henson MD Primary Care Provider [phone] Khalif Henson MD Unavailable [phone] Terrence Morris NP Primary Care Provider [phone] Encounter Details Date Type Department Care Team (Late st Contact Info) Description 06/06/2018 Ancillary Orders Virtual Department [address] [place] [address] Wilian East MD [address] [place] [address] [email or web address] Epigastric pain Social History Tobacco Use Types [...] hepatic steatosis. No biliary dilatation. POS - [id number] Edited by: Carol Villasenor on 06/06/2018 11:14 [...] with hepaticsteatosis. No biliary dilatation. POS - [id number] Edited by: Carol Villasenor on 06/06/2018 11:14 [...] documented as of this encounter Care Teams Director Outcomes Relationship Specialty Start Date End Date Khalif Henson MD [address] [place] [address], [address] [place] [address] [email or web address] PCP - General Internal Medicine 10/18/17 02/23/19 Terrence Morris NP [address] [place] [address] PCP - General Family Medicine 02/24/19 Khalif Henson MD [address] [place] [address], [address] [place] [address] [email or web address] 10/18/17 documented as of this encounter Additional Source Comments The information contained in this document represents components of the legal health record. It is not the complete legal health record.[facility]
== END 2025-05-23 09:28 | disposition home or self-care (01) ==
LOC: HO.HOS 08:14
DX: G56.02 Carpal tunnel syndrome, left upper limb (principal); G56.22 Lesion of ulnar nerve, left upper limb
CPT/HCPCS: 99204

== ENCOUNTER 2025-06-04 09:53 | Outpatient (REF) | payer BC, MEDICAID, SELFPAY ==
[2025-06-04 11:18] LABS: MANUAL DIFF FLAG NO
[2025-06-04 12:19] LABS: Hematocrit 39.7 % (37.0-47.0); Hemoglobin 12.6 g/dl (12.0-16.0); Imm Gran Abs Auto 0.05 X10*3/uL (0.00-0.03); Imm Gran Pct Auto 0.5 % (0.0-0.4); Lymphocytes Absolute Auto 2.9 X10*3/uL (1.2-4.9); Mean Corpuscular HGB Conc 31.7 g/dl (31.0-35.0); Mean Corpuscular Hemoglobin 27.8 pg (27.0-33.0); Mean Corpuscular Volume 87.4 fL (80.0-98.0); NRBC Abs Auto 0.000 X10*3/uL (0.0-0.012); NRBC Pct Auto 0.0 /100WBC (0.0-0.2); Platelet Count 420 X10*3/uL (160-400); Red Blood Count 4.54 X10*6/uL (4.20-5.50); White Blood Count 9.8 X10*3/uL (4.8-10.8)
[2025-06-04 12:50] LABS: Alanine Aminotransferase 68 U/L (0-31); Albumin Level 4.4 g/dL (3.5-5.0); Alkaline Phosphatase 75 U/L (39-117); Anion Gap 10 (12-20); Aspartate Amino Transferase 42 U/L (5-31); Blood Urea Nitrogen 10 mg/dL (9-16); Calcium 8.7 mg/dL (8.4-10.2); Carbon Dioxide 27 mmol/L (22-29); Chloride 107 mmol/L (96-108); Cholesterol 167 mg/dL (<200); Estimated Glomerular Filt Rate > 60; HDL Cholesterol 34 mg/dL (>40); Potassium 3.9 mmol/L (3.3-5.1); Sodium 140 mmol/L (135-145); Total Protein 7.5 g/dL (6.5-8.0); Triglycerides 173 mg/dL (<150)
[2025-06-04 13:01] LABS: Erythrocyte Sedimentation Rate 20 MM/HR (0-20)
[2025-06-04 13:14] LABS: Folate 12.4 ng/mL (> or = 4.0); Vitamin B12 374 pg/mL (200-900)
[2025-06-10 14:12] LABS: Anti Nuclear Antibody Screen NEGATIVE (NEGATIVE)
== END 2025-06-04 09:54 | disposition home or self-care (01) ==
LOC: HO.LAB 09:53
DX: Z00.00 Encounter for general adult medical examination without abnormal findings (principal); F41.9 Anxiety disorder, unspecified; K21.9 Gastro-esophageal reflux disease without esophagitis; N87.0 Mild cervical dysplasia; G56.02 Carpal tunnel syndrome, left upper limb; R51.9 Headache, unspecified; L30.9 Dermatitis, unspecified; E66.01 Morbid (severe) obesity due to excess calories; R21 Rash and other nonspecific skin eruption; Z13.220 Encounter for screening for lipoid disorders; Z13.0 Encounter for screening for diseases of the blood and blood-forming organs and certain disorders involving the immune mechanism; Z13.21 Encounter for screening for nutritional disorder; Z13.29 Encounter for screening for other suspected endocrine disorder; Z23 Encounter for immunization; Z68.41 Body mass index [BMI] 40.0-44.9, adult
CPT/HCPCS: 36415; 80053; 80061; 82306; 82607; 82746; 84443; 85025; 85652; 86038; 86140; 90471; 90715; 96127

== ENCOUNTER 2025-06-04 09:53 | Outpatient (AMB) | payer BC, MEDICAID, SELFPAY ==
--- NOTE | 2025-06-04 10:01 | MHC.PC.OV ---
Vital Signs 06/04/25 10:02 Height 4 ft 10 in Weight 197 lb BMI 41.2 BP 100/60 Blood Pressure Location Lt brachial Position Sitting Pulse 90 Pulse Source Pulse Oximeter Temp 97.3 F Temp Source Temporal Artery Scan Pulse Oximetry (%) 93 Oxygen Delivery Method Room Air Intake Visit Reasons: Annual Exam Intake Note: Patient is here today for a physical. Wallet Assembler Required: Yes Wallet Assembler Language: Software Integration Developer Name: Espinoza Flor558 Information Interpreted: non-clinical & clinical Fermenter Champagne: Not Required per policy Accompanied by: Self / Same As Patient Allergies hydroxyzine Allergy (Mild, Verified 06/04/25 10:11) Rash Medication List - Last Reconciled 06/04/25 by Velma Cardenas PA-C fluticasone propionate 50 mcg/actuation 1 spray intranasal Q12H levonorgestrel (Mirena) intrauterine triamcinolone acetonide 0.1% 1 appl topical DAILY PRN Tobacco use date assessed: 06/04/25 Dental Screening Dental Screen Date: 03/19/25 HPI Annual Exam HPI Details 44-year-old female with past medical history of Harvey's palsy last seen 03/2025 coming in for annual exam. In review of the notes, she was seen by orthopedics 05/2025 for left sided carpal tunnel plan for CTR which is scheduled for 06/25/2025. bed teacher Espinoza [id number] was used for the duration of this visit. Presents today for her annual exam with additional concerns. She reports intermittent headaches typically in the frontal region, behind the eyes and in the TMJ area. These symptoms are relieved with Tylenol or ibuprofen. She also experiences jaw clenching, pain in the jaw joint area, clicking, and pressure in her eyes associated with the headaches. The patient is following with a weight associate professor of management and is currently waiting for a call to schedule her next appointment. She has a recurrent rash on her arms and requires a referral to see a genetics physician at [facility] in [place]. 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 Surgical History History of endoscopy Hx of cholecystectomy Hx of appendectomy Family History Mother Liver cancer Social History Household Members: Family Household Members Other:: daughter Housing: House Are you a primary director of managed care to a significant other at home: No Do you presently have visiting nurse or other home services: No Alcohol intake: current Alcohol intake frequency: holidays/special occasions only Patient Tobacco Use Status: Never used Tobacco e-Cigarette/Vaping Use: Never Used Second Hand Smoke Exposure: No service: No Current occupational status: employed Current occupation: [email or web address] Gender identity: Female Cognitive needs: No Hearing needs: No Vision needs: No Female Reproductive History Menstrual Age of Menarche: 12 Questionnaire PHQ-9 Over the last 2 weeks, how often have you been bothered by any of the following problems? 1. Little interest or pleasure in doing things: not at all 2. Feeling down, depressed, or hopeless: not at all 3. Trouble falling or staying asleep, or sleeping too much: not at all 4. Feeling tired or having little energy: not at all 5. Poor appetite or overeating: not at all 6. Feeling bad about yourself - or that you are a failure or have let yourself or your family down: not at all 7. Trouble concentrating on things, such as reading the newspaper or watching television: not at all 8. Moving or speaking so slowly that other people could have noticed. Or the opposite - being so fidgety or restless that you have been moving around a lot more than usual: not at all 9. Thoughts that you would be better off or of hurting yourself in some way: not at all Total score: 0 Source: Developed by Drs. Juan Lomeli, Justine Plasencia, Oziel Mason and colleagues, with an educational gadiel from [employer]. Thrive Questionnaire Date Thrive assessed: 03/14/25 I am a: Patient What is your living situation today?: I have a place to live, but I am worried about losing it in the future Within the past 12 months, did the food you bought not last and you didn't have the money to get more?: Never true Within the past 12 months, did you worry whether your food would run out before you got money to buy more?: Never true Do you have trouble paying for medicines?: No Do you have trouble getting transportation to medical appointments?: No Do you have trouble paying your heating and electricity bill?: No Do you have trouble taking care of your child, family member or friend?: No Do you have trouble with day-to-day activities such as bathing, preparing meals, shopping, managing finances, etc.?: No Are you currently unemployed and looking for a job?: I choose not to answer this question Are you interested in more education?: No Please select the resources that you would like help with: None Currently or been in a relationship where the following occur: No concerns reported THRIVE Score: 1 REJI-7 AMB Questionnaire REJI-7 Date REJI - 7 assessed: 03/19/25 Feeling nervous, anxious, or on edge: 0 = Not at all Not being able to stop or control worryin = Not at all Worrying too much about different things: 0 = Not at all Trouble relaxin = Not at all Being so restless that it is hard to sit still: 0 = Not at all Becoming easily annoyed or irritable: 0 = Not at all Feeling afraid as if something awful might happen: 0 = Not at all Total REJI-7 score (0-4 normal; 5-9 mild; 10-14 moderate; 15-21 severe): 0 Source: Developed by Drs. Juan Lomeli, Justine Plasencia, Oziel Mason and colleagues, with an educational gadiel from [employer]. Review of Systems Const Denies body aches, Denies fatigue, Denies fever(s), Denies frequent falls, Reports headache(s) (behind the eyes and into the TMJ region ) and Denies weakness Eyes Reports no additional complaints and Denies change in vision ENT Denies dysphagia, Denies dizziness, Denies facial pain, Reports headache(s) (behind the eyes and into the TMJ region ), Denies nasal congestion and Denies odynophagia Card Denies chest pain, Denies syncope, Denies irregular heart rhythm, Denies leg edema, Denies lightheadedness and Denies dyspnea Resp Denies cough and Denies dyspnea GI Denies constipation, Denies dysphagia, Denies dyspepsia, Denies diarrhea, Denies nausea, Denies odynophagia and Denies vomiting Denies urinary frequency, Denies dysuria, Denies urinary hesitancy and Denies urinary urgency Musc Denies back pain and Denies myalgias Skin/Breast Reports system reviewed and no additional complaints, except as documented Neuro Denies dizziness, Denies syncope, Denies frequent falls, Reports headache(s) (behind the eyes and into the TMJ region ) and Denies weakness Psych Reports no additional complaints Endo Denies fatigue Physical exam (Primary Care) Vital Signs: Last Vital Signs Temp 97.3 F 06/04/25 10:02 Pulse 90 06/04/25 10:02 BP 100/60 06/04/25 10:02 Pulse Ox 93 06/04/25 10:02 Oxygen Delivery Method Room Air 06/04/25 10:02 BMI result Body Mass Index 41.2 Tobacco/Smoking Status: Tobacco use Status Tobacco use date assessed 06/04/25 06/04/25 10:07 Patient Tobacco Use Status Never used Tobacco 06/04/25 10:07 e-Cigarette/Vaping Use Never Used 06/04/25 10:07 PHQ-9: PHQ-9 Score PHQ-9: Total score 0 06/04/25 10:14 Thrive Assessment: Date of Thrive Assessment Date Thrive assessed 03/14/25 06/04/25 10:07 Currently or been in a relationship where the following occur: No concerns reported Const General: cooperative, healthy appearing, comfortable and no acute distress Orientation/consciousness: patient oriented x3 HENMT Head: Yes normocephalic Ears: hearing grossly normal bilaterally, external ears normal, TM's normal bilaterally and EAC's normal General nose exam: Normal external nose present Face and sinus: Yes normal facial exam and Yes sinuses nontender Mouth: Normal oral and palatal mucosa present and tongue normal Throat: Yes posterior oropharynx normal Eyes General: appearance normal, both eyes and all related structures Conjunctivae: conjunctivae normal Pupils: Equal, round and reactive pupils present EOM: EOMs intact bilaterally and No Nystagmus present Neck Neck: Yes normal visual inspection, Yes full ROM and Yes no lymphadenopathy Chest Chest palpation & inspection: normal inspection of the chest Resp Effort & Inspection: normal respiratory effort Auscultation: clear to auscultation bilaterally, no crackles, no rales, no rhonchi, no wheezes and breath sounds present Cardio Rate: regular rate Rhythm: regular rhythm Peripheral pulses: radial pulses present and dorsalis pedis present GI Inspection: Yes normal to inspection and No Abdominal wall edema Palpation (GI): Soft to palpation, not firm and nontender Auscultation: normal bowel sounds Rectal Exam - Female: deferred General: Yes no CVA tenderness Back/Spine/Pelvis Back: no CVA tenderness Skin General skin exam: no rashes or lesions noted Neuro General: patient oriented x3 Cranial nerves: Yes Equal, round and reactive pupils present, Yes Midline tongue present, Yes Ability to bilaterally elevate shoulders present and No Nystagmus present Gait exam (Neuro): Normal gait present Extrem General: Yes normal to inspection, Yes full ROM, No no pedal edema and No edema Psych Speech and movement: Normal speech and movement present Affect: normal affect Insight: Good insight present (Psych) Judgement: Good judgement present (Psych) Immunizations Boostrix Tdap 2.5 Lf unit-8 mcg-5 Lf/0.5 mL intramuscular syringe Performing Provider: Velma Cardenas PA-C [facility] Administered by: TRIXIE Mathis on 06/04/25 10:58 Dose Route Admin Location Dispensed Lot Number Expiration Date NDC Bioinformatician 0.5 mL IM Left Deltoid 0.5 mL [id number] 11/03/27 31474-827-74 Purch Total Dispensed Waste 0.5 mL 0 % VIS Given Date VIS Provided VIS Publication Date 06/04/25 Single Vaccine 21 Eligibility Eligibility Date Funding Source Not [facility] Eligible 06/04/25 Private Coding Level of Care Code Est Pt Prev Care 40-64y(27901) Diagnoses Annual physical exam Z00.00 Anxiety F41.9 Obesity, morbid, BMI 40.0-49.9 E66.01 GERD (gastroesophageal reflux disease) K21.9 RIDDHI I (cervical intraepithelial neoplasia I) N87.0 Left carpal tunnel syndrome G56.02 Headache R51.9 Eczema L30.9 Assessment & Plan Assessment & Plan (1) Annual physical exam: Code(s): Z00.00 - Encounter for general adult medical examination without abnormal findings Category: Medical Plan: Patient is up to date on all recommended routine screenings and vaccinations for her age. TDAP was due and given in the office today. Ordered for blood work and plan to follow up in 6 months or sooner as needed or pending blood work evaluation. (2) Anxiety: Code(s): F41.9 - Anxiety disorder, unspecified Category: Medical Plan: Feels good without medication or counseling at this time. (3) Obesity, morbid, BMI 40.0-49.9: Code(s): E66.01 - Morbid (severe) obesity due to excess calories Category: Medical Plan: Healthy diet and regular exercise is encouraged. Currently waiting on weight associate professor of management through [facility]. (4) GERD (gastroesophageal reflux disease): Code(s): K21.9 - Gastro-esophageal reflux disease without esophagitis Category: Medical Plan: Avoid trigger foods such as citrus, tomato products, soda, caffeine, spicy foods and other foods that may be irritating to your stomach. Avoid laying flat 3-4 hours after eating and elevate the head of the bed 30 degrees to prevent acid from moving into the esophagus. (5) RIDDHI I (cervical intraepithelial neoplasia I): Comment: Persistent status post LEEP cone with post cone ECC, 08/30/2023 Pap is negative with negative HPV.; 10/02/2024 Pap is negative with negative HPV. Code(s): N87.0 - Mild cervical dysplasia Category: Medical Plan: Continue to follow up with [facility]. (6) Left carpal tunnel syndrome: Code(s): G56.02 - Carpal tunnel syndrome, left upper limb Category: Medical Plan: Scheduled to undergo CTR with [facility] 06/25/2025. (7) Headache: Code(s): R51.9 - Headache, unspecified Category: Medical Plan: The patient's headaches are likely multifactorial. Given her symptoms of jaw pain and clenching there is a suspicion for a contribution from temporomandibular joint dysfunction. The plan is to try an [id number] nighttime mouthguard. To rule out a refractory error as a cause, a referral to an eye doctor will be placed, especially given her complaint of pain behind the eyes. The patient may continue to use Tylenol or ibuprofen as needed for relief. She will keep a log of her headaches to bring to the next visit. Discussed increase oral hydration and adequate sleep. (8) Eczema: Code(s): L30.9 - Dermatitis, unspecified Category: Medical Plan: Requesting referral which was placed today. Plan This note was constructed using voice recognition software. While every effort has been made to ensure accuracy and director of teacher education, still areas may have been included sometimes these areas may affect the content or meeting of the given symptoms. Total time spent caring for the patient today was 20 minutes. This includes time spent before the visit reviewing the chart, time spent during the visit, and time spent after the visit and documentation. Patient was informed and verbally consented to the use of an ambient scribe for clinic note documentation during this visit. Orders: Orders Vitamin D 25-OH Total Today Z13.21 - Encounter for screening for nutritional disorder Comprehensive Met. Panel Today E66.01 - Morbid (severe) obesity due to excess calories, Z00.00 - Encounter for general adult medical examination without abnormal findings Lipid Panel Today Z13.220 - Encounter for screening for lipoid disorders TDaP Immunization Today Z23 - Encounter for immunization TSH reflex Free T4 Today Z13.29 - Encounter for screening for other suspected endocrine disorder Vitamin B12 and Folate Today Z13.21 - Encounter for screening for nutritional disorder Complete Blood Count Auto Diff Today E66.01 - Morbid (severe) obesity due to excess calories, Z13.0 - Encounter for screening for diseases of the blood and blood-forming organs and certain disorders involving the immune mechanism Referrals Optometry Referral R51.9 - Headache, unspecified, Z00.00 - Encounter for general adult medical examination without abnormal findings Dermatology Referral L30.9 - Dermatitis, unspecified, R21 - Rash and other nonspecific skin eruption
[2025-06-04 10:02] VITALS: BP 100/60; PULSE 90; TEMP 36.3; O2SAT 93; BMI 41.2
--- OUTSIDE RECORDS SUMMARY | 2025-06-04 11:30 | XMS_ITS | Encounter Summary ---
Author Organization [facility] Address [address] [place] [address] Phone Care Team Providers Care Computer Forensic Specialist Name Role Phone Khalif Henson MD Primary Care Provider [phone] Khalif Henson MD Unavailable [phone] Terrence Morris NP Primary Care Provider [phone] Encounter Details Date Type Department Care Team (Late st Contact Info) Description 05/17/2018 Ancillary Orders Virtual Department [address] [place] [address] Wilian East MD [address] [place] [id number] [email or web address] Abdominal pain, epigastric Social History Tobacco Use [...] documented as of this encounter Care Teams Computer Forensic Specialist Relationship Specialty Start Date End Date Khalif Henson MD [address] [place] [address] [email or web address] PCP - General Internal Medicine 10/18/17 02/23/19 Terrence Morris NP [address] [place] [address] PCP - General Family Medicine 02/24/19 Khalif Henson MD [address] [place] [address], [address] [place] [address] [email or web address] 10/[email or web address]/17 documented as of this encounter Additional Source Comments The information contained in this document represents components of the legal health record. It is not the complete legal health record.[facility]
--- OUTSIDE RECORDS SUMMARY | 2025-06-04 11:30 | XMS_ITS | Encounter Summary ---
Author Organization [facility] Address [address] [place] [address] Phone Care Team Providers Care Online Education Manager Name Role Phone Khalif Henson MD Primary Care Provider [phone] Khalif Henson MD Unavailable [phone] Terrence Morris NP Primary Care Provider [phone] Encounter Details Date Type Department Care Team (Late st Contact Info) Description 07/21/2018 Procedure Pass [facility] Endoscopy Admitting Dept Virtual Department [address] [place] [address] Social History Tobacco Use Types Packs/Day Years [...] documented as of this encounter Care Teams Online Education Manager Relationship Specialty Start Date End Date Khalif Henson MD [address] [facility] [place] [address] PCP - General Internal Medicine 10/18/17 02/23/19 Terrence Morris NP [address] [place] [address] PCP - General Family Medicine 02/24/19 Khalif Henson MD [address] [place] [address], [address] [place] [address] 10/18/17 documented as of this encounter Additional Source Comments The information contained in this document represents components of the legal health record. It is not the complete legal health record.[facility]
--- OUTSIDE RECORDS SUMMARY | 2025-06-04 11:30 | XMS_ITS | Encounter Summary ---
Author Organization [facility] Address [address] [place] [address] Phone Care Team Providers Care Target Network Analyst Name Role Phone Khalif Henson MD Primary Care Provider [phone] Khalif Henson MD Unavailable [phone] Terrence Morris NP Primary Care Provider [phone] Encounter Details Date Type Department Care Team (Latest Contact Info) Description 05/17/2018 Transcribe Orders [facility] [address] [place] [address] Wilian East MD [address] [place] [address] [email or web address] Abdominal pain, epigastric (Primary Dx) Social History [...] (05/17/2018 11:49 AM EDT) HCV Negative Negative [facility] Comment: This is a screening test and should be confirmed with molecular testing Blood 05/17/2018 11:4 9 AM EDT 05/17/2018 11:54 AM EDT us Wilian East MD LAB BLOOD ORDERABLES Final Result [address] [address] * Hepatitis B surface antibody (05/17/2018 11:49 AM EDT) HBV SURFACE ANTIBODY Negative [facility] Comment: Unvaccinated: Negative Vaccinated: Positive Blood 05/17/2018 11:4 9 AM EDT 05/17/2018 11:54 AM EDT Wilian East MD LAB BLOOD ORDERABLES Final Result Performing Organization Address [facility] Co de Phone Number [address] [address] * Comprehensive metabolic panel (05/17/2018 11:49 AM EDT) SODIUM 139 133 - 146 mmol/L [facility] POTASSIUM 4.6 3.3 - 5.1 mmol/L [facility] CHLORIDE 102 96 - 108 mmol/L [facility] CO2 22 21 - 35 mmol/L [facility] BUN 12 6 - 19 mg/dL [facility] CREATININE 0.50 0.5 - 1.5 mg/dL [facility] GLUCOSE 96 70 - 99 mg/dL [facility] ALBUMIN 4.4 3.9 - 4.8 g/dL [facility] TOTAL PROTEIN 7.8 6.5 - 8.0 g/dL [facility] CALCIUM 9.5 8.4 - 10.3 mg/dL [facility] ALKALINE PHOSPHATASE 60 39 - 117 U/L [facility] TOTAL BILIRUBIN 0.2 0.0 - 1.2 mg/dL [facility] AST 22 0 - 37 U/L [facility] ALT 25 0 - 40 U/L [facility] GLOBULIN 3.4 1 - 4.8 g/dL [facility] EGFR >120 >59 mL/min/1.7 3m2 [facility] Comment:If patient is black, multiply result by 1.159. Estimated glomerular filtration rate calculated using the CKD-EPI equation. ANION GAP 20 10 - 20 mmol/L [facility] Blood 05/17/2018 11:4 9 AM EDT 05/17/2018 11:54 AM EDT Wilian East MD LAB BLOOD ORDERABLES Final Result Performing Organization Address City/[facility] Co de Phone Number [address] [address] * (ABNORMAL) CBC (05/17/2018 11:49 AM EDT) WBC 7.75 3.40 - 11.20 K/uL [facility] RBC 4.24 3.80 - 4.80 M/uL [facility] HGB 11.9(L) 12.0 - 15.0 g/dL [facility] HCT 35.9(L) 36.0 - 46.0 % [facility] PLT 368 130 - 400 K/uL [facility] MCV 84.7 79.0 - 98.0 fL [facility] MCH 28.1 27.0 - 34.8 pg [facility] MCHC 33.1 31.5 - 36.0 g/dL [facility] RDW 13.0 10.8 - 14.6 % [facility] MPV 10.0 9.4 - 12.4 fl [facility] NRBC 0.00 /100 WBCs [facility] ABSOLUTE NRBC 0.00 K/uL [facility] Blood 05/17/2018 11:4 9 AM EDT 05/17/2018 11:54 AM EDT us Wilian East MD LAB BLOOD ORDERABLES Final Result Performing Organization Address City/[facility]/ZIP Co de Phone Number [address] [address] * Tissue transglutaminase IgA (05/17/2018 11:49 AM EDT) TTG IGA ANTIBODY <1.2 <4.0 (Negative) U/mL [facility] MED [facility] PAT+ Blood 05/17/2018 11:4 9 AM EDT 05/18/2018 9:45 AM EDT us Wilian East MD LAB BLOOD ORDERABLES Final Result [facility] MED [facility] PAT+ [address] [place] [address] * (ABNORMAL) Immunoglobulin A (05/17/2018 11:49 AM EDT) IgA 454(H) 70 - 400 mg/dL [facility] Blood 05/17/2018 11:4 9 AM EDT 05/17/2018 11:54 AM EDT us Wilian East MD LAB BLOOD ORDERABLES Final Result Performing Organization Address City/[facility] Co de Phone Number [facility] [address] [place] [address] documented in this encounter Visit Diagnoses Diagnosis Abdominal pain, epigastric- Primary documented in this encounter Additional Health Concerns Assessment Noted Time A Body Mass Index follow-up plan has been documented for the patient 01/05/2018 9:49 AM EDT PHQ-2 Depression Total Score: 0 01/06/20 18 8:24 AM EDT documented as of this encounter Care Teams Target Network Analyst Relationship Specialty Start Date End Date Khalif Henson MD [address] [place] [address] PCP - General Internal Medicine 10/18/17 02/23/19 Terrence Morris NP [address] [place] [address] PCP - General Family Medicine 02/24/19 Khalif Henson MD [address] [place] [address], [address] [place] [address] 10/18/17 documented as of this encounter Additional Source Comments The information contained in this document represents components of the legal health record. It is not the complete legal health record.[facility]
--- OUTSIDE RECORDS SUMMARY | 2025-06-04 11:30 | XMS_ITS | Encounter Summary ---
Author Organization [facility] Address [address] [place] [address] Phone Care Team Providers Care Transmissions Systems Operator Name Role Phone Khalif Henson MD Primary Care Provider [phone] Khalif Henson MD Unavailable [phone] Terrence Morris NP Primary Care Provider [phone] Encounter Details Date Type Department Care Team (Late st Contact Info) Description 06/06/2018 Ancillary Orders Virtual Department [address] [place] [address] Wilian East MD [address] [place] [phone] [email or web address] Epigastric pain [...] hepatic steatosis. No biliary dilatation. POS - [id number] Edited by: Carol Villasenor on 06/06/2018 11:14 [...] with hepaticsteatosis. No biliary dilatation. POS - [id number] Edited by: Carol Villasenor on 06/06/2018 11:14 AM us Wilian Eats MD IMG US ABDOMEN Final Resu lt [...] documented as of this encounter Care Teams Transmissions Systems Operator Relationship Specialty Start Date End Date Khalif Henson MD [address] [place] [address], [address] [place] [phone] [email or web address] PCP - General Internal Medicine 10/18/17 02/23/19 Terrence Morris NP [address] [place] [address] PCP - General Family Medicine 02/24/19 Khalif Henson MD [address] [place] [address], [address] [place] [phone] [email or web address] 10/[email or web address]/17 documented as of this encounter Additional Source Comments The information contained in this document represents components of the legal health record. It is not the complete legal health record.[facility]
--- OUTSIDE RECORDS SUMMARY | 2025-06-04 11:30 | XMS_ITS | Encounter Summary ---
Author Organization [facility] Address [address] [place] [address] Phone Care Team Providers Care Rn L And D Name Role Phone Khalif Henson MD Primary Care Provider [phone] Khalif Henson MD Unavailable [phone] Terrence Morris NP Primary Care Provider [phone] Encounter Details Date Type Department Care Team (Late st Contact Info) Description 05/25/2018 Ancillary Orders Virtual Department [address] [place] [address] Wilian East MD [address] [place] [phone] [email or web address] Epigastric pain Social History Tobacco Use Types [...] documented as of this encounter Care Teams Rn L And D Relationship Specialty Start Date End Date Khalif Henson MD [address] [place] [address], [address] [place] [address] PCP - General Internal Medicine 10/18/17 02/23/19 Terrence Morris NP [address] [place] [id number] PCP - General Family Medicine 02/24/19 Khalif Henson MD [address] [place] [address], [address] [place] [phone] 10/18/17 documented as of this encounter Additional Source Comments The information contained in this document represents components of the legal health record. It is not the complete legal health record.[facility]
== END 2025-06-04 11:31 | disposition home or self-care (01) ==
LOC: HO.HMCH 09:54
DX: Z00.00 Encounter for general adult medical examination without abnormal findings (principal); F41.9 Anxiety disorder, unspecified; E66.01 Morbid (severe) obesity due to excess calories; Z68.41 Body mass index [BMI] 40.0-44.9, adult; K21.9 Gastro-esophageal reflux disease without esophagitis; N87.0 Mild cervical dysplasia; G56.02 Carpal tunnel syndrome, left upper limb; R51.9 Headache, unspecified; L30.9 Dermatitis, unspecified; Z23 Encounter for immunization

== ENCOUNTER 2025-06-25 09:28 | Day surgery (SDC) | payer BC, MEDICAID, SELFPAY ==
--- OUTSIDE RECORDS SUMMARY | 2025-05-29 17:06 | XMS_ITS | Encounter Summary ---
Author Organization [facility] Address [address] [facility] [address] [address] [place] [address] Phone Care Team Providers Care Estate Tax Examiner Name Role Phone Khalif Henson MD Primary Care Provider [phone] Khalif Henson MD Unavailable [phone] Terrence Morris NP Primary Care Provider [phone] Encounter Details Date Type Department Care Team (Late st Contact Info) Description 05/17/2018 Ancillary Orders Virtual Department [address] [place] [address] Wilian East MD [address] [place] [address] [email or web address] Abdominal pain, epigastric Social History Tobacco Use [...] documented as of this encounter Care Teams Estate Tax Examiner Relationship Specialty Start Date End Date Khalif Henson MD [address] [facility], 2nd [place] [address] [email or web address] PCP - General Internal Medicine 10/18/17 02/23/19 Terrence Morris NP [address] [place] [address] PCP - General Family Medicine 02/24/19 Khalif Henson MD [address] [place] [address], [address] [place] [address] [email or web address] 10/18/17 documented as of this encounter Additional Source Comments The information contained in this document represents components of the legal health record. It is not the complete legal health record.[facility]
--- OUTSIDE RECORDS SUMMARY | 2025-05-29 17:06 | XMS_ITS | Encounter Summary ---
Author Organization [facility] Address [address] [facility] [address] [place] [address] Phone Care Team Providers Care General Inspector Name Role Phone Khalif Henson MD Primary Care Provider [phone] Khalif Henson MD Unavailable [phone] Terrence Morris NP Primary Care Provider Encounter Details Date Type Department Care Team (Late st Contact Info) Description 05/25/2018 Ancillary Orders Virtual Department 30 [place] [address] Wilian East MD [address] [place] [address] [email or web address] Epigastric pain Social History Tobacco Use Types [...] documented as of this encounter Care Teams General Inspector Relationship Specialty Start Date End Date Khalif Henson MD [address] [place] [address], [address] [place] [address] [email or web address] PCP - General Internal Medicine 10/18/17 02/23/19 Terrence Morris NP [address] [place] [address] PCP - General Family Medicine 02/24/19 Khalif Henson MD [address] [place] [address], [address] [place] [address] 10/18/17 documented as of this encounter Additional Source Comments The information contained in this document represents components of the legal health record. It is not the complete legal health record.[facility]
--- OUTSIDE RECORDS SUMMARY | 2025-05-29 17:06 | XMS_ITS | Encounter Summary ---
Author Organization [facility] Address [address] [place] [address] Phone Care Team Providers Care Relay Shop Tester Name Role Phone Khalif Henson MD Primary Care Provider [phone] Khalif Henson MD Unavailable [phone] Terrence Morris NP Primary Care Provider [phone] Encounter Details Date Type Department Care Team (Latest Contact Info) Description 05/17/2018 Transcribe Orders [facility] [address] [place] [address] Wilian East MD [address] [facility] [address] [place] [address] [email or web address] Abdominal pain, epigastric (Primary Dx) Social History [...] (05/17/2018 11:49 AM EDT) HCV Negative Negative [facility] Comment: This is a screening test and should be confirmed with molecular testing Blood 05/17/2018 11:4 9 AM EDT 05/17/2018 11:54 AM EDT us Wilian East MD LAB BLOOD ORDERABLES Final Result [address] [address] * Hepatitis B surface antibody (05/17/2018 11:49 AM EDT) HBV SURFACE ANTIBODY Negative [facility] Comment: Unvaccinated: Negative Vaccinated: Positive Blood 05/17/2018 11:4 9 AM EDT 05/17/2018 11:54 AM EDT Wilian East MD LAB BLOOD ORDERABLES Final Result Performing Organization Address [facility] Co de Phone Number [address] [address] * Comprehensive metabolic panel (05/17/2018 11:49 AM EDT) SODIUM 139 133 - 146 mmol/L [facility] POTASSIUM 4.6 3.3 - 5.1 mmol/L [facility] CHLORIDE 102 96 - 108 mmol/L [facility] CO2 22 21 - 35 mmol/L [facility] BUN 12 6 - 19 mg/dL [facility] CREATININE 0.50 0.5 - 1.5 mg/dL [facility] GLUCOSE 96 70 - 99 mg/dL [facility] ALBUMIN 4.4 3.9 - 4.8 g/dL [facility] TOTAL PROTEIN 7.8 6.5 - 8.0 g/dL [facility] CALCIUM 9.5 8.4 - 10.3 mg/dL [facility] ALKALINE PHOSPHATASE 60 39 - 117 U/L [facility] TOTAL BILIRUBIN 0.2 0.0 - 1.2 mg/dL [facility] AST 22 0 - 37 U/L [facility] ALT 25 0 - 40 U/L [facility] GLOBULIN 3.4 1 - 4.8 g/dL [facility] EGFR >120 >59 mL/min/1.7 3m2 [facility] Comment:If patient is black, multiply result by 1.159. Estimated glomerular filtration rate calculated using the CKD-EPI equation. ANION GAP 20 10 - 20 mmol/L [facility] Blood 05/17/2018 11:4 9 AM EDT 05/17/2018 11:54 AM EDT Wilian East MD LAB BLOOD ORDERABLES Final Result Performing Organization Address City/[facility] Co de Phone Number [address] [address] * (ABNORMAL) CBC (05/17/2018 11:49 AM EDT) WBC 7.75 3.40 - 11.20 K/uL [facility] RBC 4.24 3.80 - 4.80 M/uL [facility] HGB 11.9(L) 12.0 - 15.0 g/dL [facility] HCT 35.9(L) 36.0 - 46.0 % [facility] PLT 368 130 - 400 K/uL [facility] MCV 84.7 79.0 - 98.0 fL [facility] MCH 28.1 27.0 - 34.8 pg [facility] MCHC 33.1 31.5 - 36.0 g/dL [facility] RDW 13.0 10.8 - 14.6 % [facility] MPV 10.0 9.4 - 12.4 fl [facility] NRBC 0.00 /100 WBCs [facility] ABSOLUTE NRBC 0.00 K/uL [facility] Blood 05/17/2018 11:4 9 AM EDT 05/17/2018 11:54 AM EDT us Wilian East MD LAB BLOOD ORDERABLES Final Result Performing Organization Address City/[facility]/ZIP Co de Phone Number [address] [address] * Tissue transglutaminase IgA (05/17/2018 11:49 AM EDT) TTG IGA ANTIBODY <1.2 <4.0 (Negative) U/mL [facility] DPT OF LAB MED AND PAT+ Blood 05/17/2018 11:4 9 AM EDT 05/18/2018 9:45 AM EDT us Wilian East MD LAB BLOOD ORDERABLES Final Result [facility] DPT OF LAB MED AND PAT+ [address] [place] [address] * (ABNORMAL) Immunoglobulin A (05/17/2018 11:49 AM EDT) IgA 454(H) 70 - 400 mg/dL [facility] Blood 05/17/2018 11:4 9 AM EDT 05/17/2018 11:54 AM EDT us Wilian East MD LAB BLOOD ORDERABLES Final Result Performing Organization Address City/[facility] Co de Phone Number [facility] [address] [place] [address] documented in this encounter Visit Diagnoses Diagnosis Abdominal pain, epigastric- Primary documented in this encounter Additional Health Concerns Assessment Noted Time A Body Mass Index follow-up plan has been documented for the patient 01/05/2018 9:49 AM EDT PHQ-2 Depression Total Score: 0 01/06/20 18 8:24 AM EDT documented as of this encounter Care Teams Relay Shop Tester Relationship Specialty Start Date End Date Khalif Henson MD [address] [place] [address] PCP - General Internal Medicine 10/18/17 02/23/19 Terrence Morris NP [address] [place] [address] PCP - General Family Medicine 02/24/19 Khalif Henson MD [address] [place] [address], [address] [place] [address] 10/18/17 documented as of this encounter Additional Source Comments The information contained in this document represents components of the legal health record. It is not the complete legal health record.[facility]
--- OUTSIDE RECORDS SUMMARY | 2025-05-29 17:06 | XMS_ITS | Encounter Summary ---
Author Organization [facility] Address [address] [place] [address] Phone Care Team Providers Care Scrap Drop Crane Operator Name Role Phone Khalif Henson MD Primary Care Provider [phone] Khalif Henson MD Unavailable [phone] Terrence Morris NP Primary Care Provider [phone] Encounter Details Date Type Department Care Team (Late st Contact Info) Description 07/21/2018 Procedure Pass [facility] Endoscopy Admitting Dept Virtual Department [address] [place] [address] Social History Tobacco Use Types Packs/Day Years [...] documented as of this encounter Care Teams Scrap Drop Crane Operator Relationship Specialty Start Date End Date Khalif Henson MD [address] [facility] [place] [address] PCP - General Internal Medicine 10/18/17 02/23/19 Terrence Morris NP [address] [place] [address] PCP - General Family Medicine 02/24/19 Khalif Henson MD [address] [place] [address], [address] [place] [address] 10/18/17 documented as of this encounter Additional Source Comments The information contained in this document represents components of the legal health record. It is not the complete legal health record.[facility]
--- OUTSIDE RECORDS SUMMARY | 2025-05-29 17:06 | XMS_ITS | Clinical Summary ---
Author Organization [facility] Address [address] [place] [address] Phone Care Team Providers Care Planer Offbearer Name Role Phone Khalif Henson MD Unavailable [phone] Terrence Morris NP Primary Care Provider [phone] Allergies No known active allergies Medications omeprazole [...] 11:49 AM EDT) HCV Negative Negative [facility] Comment: This is a screening test and should be confirmed with molecular testing Blood 05/17/2018 11:4 9 AM EDT 05/17/2018 11:54 AM EDT Wilian East MD LAB BLOOD ORDERABLES Final Result Performing Organization Address City/State/[facility] Co de Phone Number [address] [address] * Pap Smear (01/05/2018 12:00 AM EDT) 01/05/2018 01/06/2018 2:3 3 PM EDT Narrative SEE NARRATIVE - 01/12/2018 2:51 PM EDT [address] [address] Train Attendant: Holly Feldman MD [employer] Cytology Report FINAL DIAGNOSIS A. PAP SMEAR [...] advised. This HPV test was performed at [facility], [address] [place] [address]. The accuracy and precision of this test has been verified in the Cytopathology laboratory of the [facility]. This test has not been cleared or approved by the U.S. Food and Drug Administration (FDA). CLINICAL HISTORY Date of Last Menstrual Period: Unknown Contraceptive History: Other: Has Nexplanon. Other Clinical Conditions: Screening Pap SPECIMEN SOURCE A: PAP SMEAR (SUREPATH) C Patient Name: ABRAN MELENDEZ : 1980 (Age: 37) Sex: F Institution: [facility] Location: [facility] Date of Collection: 01/05/2018 Date of Reported: 01/11/2018 11:26 Results to: Khalif Henson MD Khalif Henson MD CYTOLOGY ORDERABLES Edited Result - Final SEE NARRATIVE from Last 3 Months or Most Recently Relevant to Health Maintenance [place] [address] [place] [address] [facility] [place] [address] [place] [address] [place] [address] [facility] Care Teams Planer Offbearer Relationship Specialty Start Date End Date Terrence Morris NP [address] [place] [address] PCP - General Family Medicine 02/24/19 Khalif Henson MD [address] [place] [address], [address] Floor [place], [place] 10/18/17 Additional Source Comments The information contained in this document represents components of the legal health record. It is not the complete legal health record.[facility]
--- OUTSIDE RECORDS SUMMARY | 2025-05-29 17:06 | XMS_ITS | Encounter Summary ---
Author Organization [facility] Address [address] [place] [address] Phone Care Team Providers Care Technician Telecommunication Systems Name Role Phone Khalif Henson MD Primary Care Provider [phone] Khalif Henson MD Unavailable [phone] Terrence Morris NP Primary Care Provider [phone] Encounter Details Date Type Department Care Team (Late st Contact Info) Description 06/06/2018 Ancillary Orders Virtual Department [address] [place] [address] Wilian East MD [address] [place] [id number] [email or web address] Epigastric pain Social History Tobacco Use Types [...] hepatic steatosis. No biliary dilatation. POS - [id number] Edited by: Carol Villasenor on 06/06/2018 11:14 [...] with hepaticsteatosis. No biliary dilatation. POS - [id number] Edited by: Carol Villasenor on 06/06/2018 11:14 [...] documented as of this encounter Care Teams Technician Telecommunication Systems Relationship Specialty Start Date End Date Khalif Henson MD [address] [place] [address], [address] [place] [address] [email or web address] PCP - General Internal Medicine 10/18/17 02/23/19 Terrence Morris NP [address] [place] [address] PCP - General Family Medicine 02/24/19 Khalif Henson MD [address] [place] [address], [address] [place] [address] [email or web address] 10/[email or web address]/17 documented as of this encounter Additional Source Comments The information contained in this document represents components of the legal health record. It is not the complete legal health record.[facility]
--- NOTE | 2025-06-25 09:51 | MHC.SHP ---
Pre-Procedural Eval Section A - 24 Hr Update-Section A only Date of Service: 06/25/25 The patient is an INPATIENT: No Changes since office visit: No Cold of Flu in the past 2 weeks, No New Medical Problems, No Changes in Medication and No Patient answered all questions The patient has been examined within 24 hours of the surgical procedure. The History & Physical has been completed within 30 days and I have reviewed it.: Yes Section B - Complete if H&P > 30 days Chief Complaint: Carpal tunnel syndrome, left upper limb Allergies: Allergies Allergy/AdvReac Type Severity Reaction Status Date / Time hydroxyzine Allergy Mild Rash Verified 06/04/25 10:11 Plan Diagnosis/Plan: Unchanged I have reviewed the history and physical and performed a pertinent physical examination on my patient. No changes have occurred unless specified. Time Spent With Patient Time: Total time managing care of this patient today ____ minutes.
--- NOTE | 2025-06-25 09:52 | W.PM.OPN ---
Operative Note Operative Note Date of Service: 06/25/25 Narrative: Preop diagnosis: 1. Left Carpal tunnel syndrome Postop diagnosis: same Procedure: 1. Left Carpal tunnel release Surgeon: Yaneth Clay MD Probation Counselor: None Anesthesia: local block using 1% lidocaine with epinephrine Findings: Thickened transverse carpal ligament. EBL: Less than 5 mL Specimens: None Complications: None Disposition: Brought to recovery room in stable condition Plan: Follow-up for 10-14 days for wound check and suture removal Indications: The patient is 44 years old, with left carpal tunnel syndrome that has been unresponsive to nonoperative management. The risks and benefits of operative treatment including but not limited to risk of damage to blood vessels, nerves, tendons, infection, persistent pain, persistent symptoms, or possible need for additional surgery were discussed with the patient and the patient wishes to proceed with surgery. Procedure: Once consent was obtained a local block was performed using a combination of 1% lidocaine with epinephrine. The patient was then brought back to the operating suite and placed on the operative table in supine position. The left upper extremity was prepped and draped in a standard surgical fashion. Once assured that we had a good block, a 2.0 cm longitudinal incision was made centered over the carpal tunnel. The incision was made through the skin to the subcutaneous tissues using a #15 blade. Dissection was made down to the level of the transverse carpal ligament with care being taken to protect the palmar cutaneous nerve. Once the transverse carpal ligament was clearly visualized, a longitudinal incision was made in the transverse carpal ligament 1st using a #15 blade, then using tenotomy scissors under direct visualization. Care was taken to look for and protect the motor branch of the median nerve when seen in this area. Once satisfied with our carpal tunnel release the wound was copiously irrigated with normal saline and hemostasis was obtained with a brief period of local pressure. The skin edges were reapproximated with some 5.0 nylon suture material and a sterile dressing was applied. The patient appears to have tolerated the procedure well and with no complications. All digits were well vascularized at the conclusion of the case.
[2025-06-25 10:39] VITALS: BP 129/69; PULSE 95; RESP 16; TEMP 36.6; O2SAT 95; BMI 38.5
[2025-06-25 12:31] VITALS: BP 101/57; PULSE 69; RESP 16; TEMP 36.3; O2SAT 95
== END 2025-06-25 12:39 | disposition home or self-care (01) ==
PROVIDERS: Visit Provider Orthopaedic Surgery
PROC: (CPT 64721; principal; 2025-06-25 11:30)
DX: G56.02 Carpal tunnel syndrome, left upper limb (principal); M79.642 Pain in left hand; R20.0 Anesthesia of skin; R20.2 Paresthesia of skin; G51.0 Bell's palsy; Z88.8 Allergy status to other drugs, medicaments and biological substances; Z90.49 Acquired absence of other specified parts of digestive tract
CPT/HCPCS: 64721; J0165; J2003

== ENCOUNTER → 2025-06-25 09:28 | Outpatient (BNV) | payer BC, MEDICAID, SELFPAY | PROVIDERS: Visit Provider Orthopaedic Surgery | DX: G56.02 Carpal tunnel syndrome, left upper limb (principal) | CPT/HCPCS: 64721 ==

== ENCOUNTER 2025-06-27 08:25 | Outpatient (AMB) | payer BC, MEDICAID, SELFPAY ==
--- NOTE | 2025-06-27 08:50 | A.OFFVIS_ITS ---
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 Production Line Technician Required: Yes Production Line Technician Services: Production Line Technician Present Information Interpreted: clinical only Allergies hydroxyzine Allergy (Mild, Verified 06/27/25 08:50) Rash Medication List - Last Reconciled 06/27/25 by Alfonso Gutierrez MD levonorgestrel (Mirena) intrauterine HPI 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: Details: Start time: 8.45am, End time: 9.30am ?I spent 40 minutes speaking with the patient on the phone plus an additional 5 minutes reviewing and updating records for a total of 45 minutes HPI Comments Details: Previous weight loss efforts: none Wakes up: 5am, Sleeps: 9pm Breakfast: 10am (eggs, harris, potatoes, oatmeal) Lunch: 1.30pm (chicken, meat) Dinner: 7pm (soups of meat/chicken) Snacks: 7am (cookie) Exercise: none Beverages: Coffee (1 cup/d with cream and sugar), Tea: occasionally, Soda: diet coke sometimes with lunch, Juice: sometimes with lunch, ETOH: none PFSH Medical History (Updated 06/27/25 @ 08:54 by Alfonso Gutierrez MD) Morbid obesity 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 Surgical History History of endoscopy Hx of cholecystectomy Hx of appendectomy Family History Mother Liver cancer Social History Household Members: Family Household Members Other:: daughter Housing: House Are you a primary healthcare receptionist to a significant other at home: No Do you presently have visiting nurse or other home services: No Alcohol intake: current Alcohol intake frequency: holidays/special occasions only Patient Tobacco Use Status: Never used Tobacco e-Cigarette/Vaping Use: Never Used Second Hand Smoke Exposure: No service: No Current occupational status: employed 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 Gender identity: Female Cognitive needs: No Hearing needs: No Vision needs: No Female Reproductive History Menstrual Age of Menarche: 12 Telehealth Telehealth Telehealth Platform: Telephone Location of provider rendering services: practice address Location of patient: address on file Patient Identification confirmed using: Name, : Yes Telehealth method: voice only Patient verbally consented to treatment: Yes Patient verbally consented to billing insurance company: Yes Patient informed of any privacy concerns related to visit: Yes Minutes spent on Phone/Video with Pt.: 45 Assessment & Plan Assessment & Plan (1) Morbid obesity: Code(s): E66.01 - Morbid (severe) obesity due to excess calories Category: Medical Plan: 1.? Plan for lap sleeve gastrectomy. If diaphragmatic or ventral hernias are present at time of surgery, these will be repaired laparoscopically as well. I emphasized the importance of close follow-up, adherence to instructions and good communication. The surgery does not replace the need to change your lifestlyle which is the cause of the obesity problem. The surgery provides the motivation to try again to change your lifestyle, it reduces the appetite and make the transition to a better lifestyle easier and doubles the amount of weight you would lose compared to doing the lifestyle change without the surgery. You will need to be on a liquid diet with protein shakes for 2 weeks before surgery to maximize weight loss and boost your nutritional status to recover better from surgery and also for the first two weeks after surgery to let the stomach heal before we introduce other foods. After the first 2 weeks we will introduce protein bars and soft foods like scrambled eggs, cottage cheese and yogurt and after the 6th week will introduce meat, fish and cooked vegetables in small amounts. Over time you should be able to eat everything in small amounts. Side effects like nausea, vomiting, heartburn or abdominal pain are not common in the practice unless you are not following in the practice. This operation requires lifetime commitment to following in our practice and communication with me. You will much less weight and experience side effects if you don?t communicate or not following in the practice. Complications are rare and in our practice is about 1/10 of the national average. However, you can develop bleeding that may require transfusion (hasn?t happened for year in the practice), you may from complications (we did not have any deaths in the practice) and infections. Infections are usually a result of breakdown in communication or not understanding or following directions correctly. They are difficult to treat, they can happen during the first 6 weeks, they may require to be in the hospital for weeks or even months, not being able to eat by mouth and you may have drains and surgeries to try and correct the issue. Other risks and complications include possible conversion to an open procedure, leaks, small bowel obstruction, blood clots, cardiac, or pulmonary complications, as technician terminal and repeater complications such as ulcers, insufficient weight loss and vitamin deficiencies. 2. Nutritional counseling. Start with one premade PREMIER protein (buy at [employer] or [employer]) shake (mix 4oz of Premier mixed with 4oz low fat unsweetened almond milk each) at 6am-8am, one protein bar (Fit Crunch protein bar, buy at [employer], or [employer]) at 9am-11am, another premade PREMIER protein shake (mix 4oz of Premier mixed with 4oz low fat unsweetened almond milk each) at 12pm-2pm, another [employer] Crunch protein bar at 3pm-5pm,? dinner at 6pm (6 forks of protein and 6 forks of salad/vegetables). If hungry, you can have another 1/2 Fit Crunch bar or 4oz of Premier shake at 8pm-9pm. So you do 2 protein shakes, 2 to 2.5 protein bars and one meal per day. Meal to include lean meat (beef, fish, pork, turkey, chicken), or malay yogurt, or egg whites, or beans with a salad with olive oil and fruits (berries, pears, apples, kiwi). Avoid salt, breads, potatoes, rice, pasta, desserts. 3. Each shake would be drunk slowly, like coffee in a period of 2 hours. 4. Cut each bar in 4 pieces and eat each piece in 30min ?to make each bar last 2 hours. 5. I emphasized the importance of measuring accurately the food portion and measure it when serving the food in plate 6. The meal portions include 6 full-size forks of meat and 6 full-size forks of salad. You always eat the meat portion but you can replace up to 3 forks for salad/vegetables with rice, potatoes or pasta, or a fruit ?if you like. The less you do it the better weight loss will be. 7. One full-size fork is what it can be scooped on the fork without falling aside and not what can be bit with the fork. Use regular forks like those you fi nd in a typical restaurant. 8.? Please buy the body composition scale we discussed and send me weight measurements as soon as possible and then once a week. Always include your diet and exercise plan. 9. Start walking outside daily, tracking calories with a goal of 300 calories per day, daily. Goal is to burn 2000 calories per week on exercise, which means either 300 calories daily, or 400 calories 5 days per week, or 500 calories 4 days per week, or 650 calories 3 days per week. 10. The best choice would be to purchase a stationary bike at home that can track calories. If you get one, please start stationary bike at a resistance level of 4.0 Increase level by 1.0 every 3 min to a max level of 10.0. Stay at this level for 3 min and then return to level 4.0 and repeat same steps until 3 00 calories are burned. Goal is to burn 2000 calories per week on exercise 11.?It is important of avoiding and for at least 18 months postoperatively and has been discussed at the infosession. 12. Goal is to lose at least 1.5-2lbs per week 13. Goal to lose 10% of your weight before surgery, which is about 20lbs. Ultimate weight goal: 176lbs before surgery 14. Please follow the diet plan exactly without any change. If you don't like something about the plan or you feel hungry you need to communicate with me so I can help you revise the plan. You should not change the plan yourself 15. To be scheduled for EGD to assess the stomach's anatomy. The possibility of biopsies was discussed. Patient needs to avoid use of NSAIDs and aspirin for 1 week prior to EGD. You must be on liquids only the day before your endoscopy. Risks of perforation and bleeding was discussed with the patient. This will be an outpatient procedure with IV sedation. Orders: Orders Insulin Today E66.01 - Morbid (severe) obesity due to excess calories Hemoglobin A1c Today E66.01 - Morbid (severe) obesity due to excess calories Complete Blood Count Auto Diff Today E66.01 - Morbid (severe) obesity due to excess calories Vitamin B12 and Folate Today E66.01 - Morbid (severe) obesity due to excess calories Vitamin A Today E66.01 - Morbid (severe) obesity due to excess calories Vitamin D 25-OH Total Today E66.01 - Morbid (severe) obesity due to excess calories US abdomen comp w elastography Today E66.01 - Morbid (severe) obesity due to excess calories ECG 12 lead EKG Today E66.01 - Morbid (severe) obesity due to excess calories H Pylori Breath Test Today E66.01 - Morbid (severe) obesity due to excess calories Lipid Panel Today E66.01 - Morbid (severe) obesity due to excess calories IRON PROFILE Today E66.01 - Morbid (severe) obesity due to excess calories Comprehensive Met. Panel Today E66.01 - Morbid (severe) obesity due to excess calories Zinc Today E66.01 - Morbid (severe) obesity due to excess calories C Reactive Protein Today E66.01 - Morbid (severe) obesity due to excess calories Vitamin B1 Today E66.01 - Morbid (severe) obesity due to excess calories TSH reflex Free T4 Today E66.01 - Morbid (severe) obesity due to excess calories Ferritin Today E66.01 - Morbid (severe) obesity due to excess calories XR chest 2V Today E66.01 - Morbid (severe) obesity due to excess calories FL upper GI w air Today E66.01 - Morbid (severe) obesity due to excess calories Referrals Behavioral Health Referral E66.01 - Morbid (severe) obesity due to excess calories Nutrition/Dietitian Referral E66.01 - Morbid (severe) obesity due to excess calories
[2025-06-27 09:03] VITALS: BMI 38.4
== END 2025-06-27 09:34 | disposition home or self-care (01) ==
LOC: HO.HBS 08:25
PROVIDERS: Visit Provider Surgery
DX: E66.9 Obesity, unspecified (principal); Z68.38 Body mass index [BMI] 38.0-38.9, adult
CPT/HCPCS: 99204

== ENCOUNTER 2025-07-10 10:07 | Outpatient (AMB) | payer BC, MEDICAID, SELFPAY ==
[2025-07-10 10:11] VITALS: BMI 38.7
--- NOTE | 2025-07-10 10:11 | A.OFFVIS_ITS ---
Vital Signs 07/10/25 10:11 Height 5 ft Weight 198 lb BMI 38.7 Intake Visit Reasons: PO LT CTR 06/25/25 AR Intake Note: Sravanthi is a 44 year old right hand dominant female who presents today for a Post- Operative Visit status post Left Carpal Tunnel Release performed by Dr. Clay on 06/25/25. Patient reports she is doing well. She denies numbness, tingling, finger locking. Patient states she was unable to tolerate her pain medication. She has been using Tylenol PRN. Sutures removed and steri strips applied. Is/It Project Manager Required: Yes Is/It Project Manager Language: Cable [employer] Services: Is/It Project Manager Present Is/It Project Manager Name: Steven, RMA/LM Allergies hydroxyzine Allergy (Mild, Verified 07/10/25 10:11) Rash HPI HPI PO LT CTR 06/25/25 AR: Details: Sravanthi is a 44 year old right hand dominant female who presents today for a Post- Operative Visit status post Left Carpal Tunnel Release performed by Dr. Clay on 06/25/25. Patient reports she is doing well. She denies numbness, tingling, finger locking. Patient states she was unable to tolerate her pain medication. She has been using Tylenol PRN. Sutures removed and steri strips applied. 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 Surgical History History of endoscopy Hx of cholecystectomy Hx of appendectomy Family History Mother Liver cancer Social History Household Members: Family Household Members Other:: daughter Housing: House Are you a primary overnight caregiver to a significant other at home: No Do you presently have visiting nurse or other home services: No Alcohol intake: current Alcohol intake frequency: holidays/special occasions only Patient Tobacco Use Status: Never used Tobacco e-Cigarette/Vaping Use: Never Used Second Hand Smoke Exposure: No service: No Current occupational status: employed 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 Normal sensation to all other digits in the left hand today. No thenar or intrinsic wasting. Good APB muscle firing and good finger cross. Vascular: Capillary refill brisk. ROM: Patient can make a fist and extend all their digits. Skin: Well approximated and well healing incision site on the volar left wrist No lacerations or abrasions noted. General: No ecchymosis. No erythema or evidence of infection. Assessment & Plan Assessment & Plan (1) Left carpal tunnel syndrome: Code(s): G56.02 - Carpal tunnel syndrome, left upper limb Category: Medical Plan 1. Left carpal tunnel syndrome Status post left carpal tunnel release DOS 06/25/2025 With good symptomatic resolution postoperatively Patient appears to be recovering well postoperatively Patient is educated about the typical recovery course No under water times one-week, 2 lb weight limit x2 weeks Patient appears to be recovering very well, and requires no further acute follow-up with us postoperatively Patient is educated and worrisome signs and symptoms, and should call us if they experience any of these, including but not limited to redness, swelling, increased pain, and discharge Patient understands this and is amenable to this plan Coding Level of Care Code Global (33096) Diagnoses Left carpal tunnel syndrome G56.02
--- OUTSIDE RECORDS SUMMARY | 2025-07-10 11:31 | XMS_ITS | Encounter Summary ---
Author Organization [facility] Address [address] [place] [address] Phone Care Team Providers Care Adjunct Phlebotomy Instructor Name Role Phone Khalif Henson MD Primary Care Provider [phone] Khalif Henson MD Unavailable [phone] Terrence Morris NP Primary Care Provider [phone] Encounter Details Date Type Department Care Team (Late st Contact Info) Description 05/25/2018 Ancillary Orders Virtual Department [address] [place] [address] Wilian East MD [address] [place] [phone] [email or web address] Epigastric pain Social History Tobacco Use Types [...] documented as of this encounter Care Teams Adjunct Phlebotomy Instructor Relationship Specialty Start Date End Date Khalif Henson MD [address] [place] [address], [address] [place] [address] PCP - General Internal Medicine 10/18/17 02/23/19 Terrence Morris NP [address] [place] [address] PCP - General Family Medicine 02/24/19 Khalif Henson MD [address] [place] [address], [address] [place] [address] 10/18/17 documented as of this encounter Additional Source Comments The information contained in this document represents components of the legal health record. It is not the complete legal health record.[facility]
--- OUTSIDE RECORDS SUMMARY | 2025-07-10 11:31 | XMS_ITS | Clinical Summary ---
Author Organization [facility] Address [address] [place] [address] Phone Care Team Providers Care Medical Collector Name Role Phone Khalif Henson MD Unavailable [phone] Terrence Morris NP Primary Care Provider [phone] Allergies No known active allergies Medications omeprazole [...] (05/17/2018 11:49 AM EDT) HCV Negative Negative [facility] Comment: This is a screening test and should be confirmed with molecular testing Blood 05/17/2018 11:4 9 AM EDT 05/17/2018 11:54 AM EDT Wilian East MD LAB BLOOD BKR ORDERABLES F inal Result Performing Organization Address City/State/[facility] Co de Phone Number [address] [address] * Pap Smear (01/05/2018 12:00 AM EDT) 01/05/2018 01/06/2018 2:3 3 PM EDT Narrative SEE NARRATIVE - 01/12/2018 2:51 PM EDT [address] [address] Jigger Artisan: Holly Feldman MD POWER ENGINEER Cytology Report FINAL DIAGNOSIS A. PAP SMEAR [...] advised. This HPV test was performed at [facility], [address] [place] [address]. The accuracy and precision of this test has been verified in the Cytopathology laboratory of the [facility]. This test has not been cleared or approved by the U.S. Food and Drug Administration (FDA). CLINICAL HISTORY Date of Last Menstrual Period: Unknown Contraceptive History: Other: Has Nexplanon. Other Clinical Conditions: Screening Pap SPECIMEN SOURCE A: PAP SMEAR (SUREPATH) C Patient Name: ABRAN MELENDEZ : 1980 (Age: 37) Sex: F Institution: [facility] Location: [facility] Date of Collection: 01/05/2018 Date of Reported: 01/11/2018 11:26 Results to: Khalif Henson MD Khalif Henson MD CYTOLOGY ORDERABLES Edited Result - Final SEE NARRATIVE from Last 3 Months or Most Recently Relevant to Health Maintenance Insurance [facility] [address] [place] [address] [place] [address] [facility] Care Teams Medical Collector Relationship Specialty Start Date End Date Terrence Morris NP [address] [place] [address] PCP - General Family Medicine 02/24/19 Khalif Henson MD [address] [place] [address], [address] [place] [address] 10/18/17 Additional Source Comments The information contained in this document represents components of the legal health record. It is not the complete legal health record.[facility]
--- OUTSIDE RECORDS SUMMARY | 2025-07-10 11:31 | XMS_ITS | Encounter Summary ---
Author Organization [facility] Address [address] [place] [address] Phone Care Team Providers Care Edger Hand Name Role Phone Khalif Henson MD Primary Care Provider [phone] Khalif Henson MD Unavailable [phone] Terrence Morris NP Primary Care Provider [phone] Encounter Details Date Type Department Care Team (Late st Contact Info) Description 05/17/2018 Ancillary Orders Virtual Department [address] [place] [address] Wilian East MD [address] [place] [phone] [email or web address] Abdominal pain, epigastric Social History [...] documented as of this encounter Care Teams Edger Hand Relationship Specialty Start Date End Date Khalif Henson MD [address], [address]nd [place] [address] [email or web address] PCP - General Internal Medicine 10/18/17 02/23/19 Terrence Morris NP [address] [place] [address] PCP - General Family Medicine 02/24/19 Khalif Henson MD [address] [place] [address], [address] [place] [address] [email or web address] 10/18/17 documented as of this encounter Additional Source Comments The information contained in this document represents components of the legal health record. It is not the complete legal health record.[facility]
--- OUTSIDE RECORDS SUMMARY | 2025-07-10 11:31 | XMS_ITS | Encounter Summary ---
Author Organization [facility] Address [address] [place] [address] Phone Care Team Providers Care Recreation Superintendent Name Role Phone Khalif Henson MD Primary Care Provider [phone] Khalif Henson MD Unavailable [phone] Terrence Morris NP Primary Care Provider [phone] Encounter Details Date Type Department Care Team (Late st Contact Info) Description 07/21/2018 Procedure Pass [facility] Endoscopy Admitting Dept Virtual Department [address] [place] [address] Social History Tobacco Use Types Packs/Day Years [...] documented as of this encounter Care Teams Recreation Superintendent Relationship Specialty Start Date End Date Khalif Henson MD [address] [facility], [address]nd [place] [address] PCP - General Internal Medicine 10/18/17 02/23/19 Terrence Morris NP [address] [place] [address] PCP - General Family Medicine 02/24/19 Khalif Henson MD [address] [place] [address], [address] [place] [address] 10/18/17 documented as of this encounter Additional Source Comments The information contained in this document represents components of the legal health record. It is not the complete legal health record.[facility]
--- OUTSIDE RECORDS SUMMARY | 2025-07-10 11:31 | XMS_ITS | Encounter Summary ---
Author Organization [facility] Address [address] [place] [address] Phone Care Team Providers Care Pattern Cleaner Name Role Phone Khalif Henson MD Primary Care Provider [phone] Khalif Henson MD Unavailable [phone] Terrence Morris NP Primary Care Provider [phone] Encounter Details Date Type Department Care Team (Late st Contact Info) Description 06/06/2018 Ancillary Orders Virtual Department [address] [place] [address] Wilian East MD [address] [place] [phone] [email or web address] [...] hepatic steatosis. No biliary dilatation. POS - [id number] Edited by: Carol Villasenor on 06/06/2018 11:14 [...] with hepaticsteatosis. No biliary dilatation. POS - [id number] Edited by: Carol Villasenor on 06/06/2018 11:14 [...] documented as of this encounter Care Teams Pattern Cleaner Relationship Specialty Start Date End Date Khalif Henson MD [address] [place] [address], [address] [place] [address] [email or web address] PCP - General Internal Medicine 10/18/17 02/23/19 Terrence Morris NP [address] [place] [address] PCP - General Family Medicine 02/24/19 Khalif Henson MD [address] [place] [address], [address] [place] [address] [email or web address] 10/18/17 documented as of this encounter Additional Source Comments The information contained in this document represents components of the legal health record. It is not the complete legal health record.[facility]
--- OUTSIDE RECORDS SUMMARY | 2025-07-10 11:31 | XMS_ITS | Encounter Summary ---
Author Organization [facility] Address [address] [place] [address] Phone Care Team Providers Care Glove Turner And Former Automatic Name Role Phone Khalif Henson MD Primary Care Provider [phone] Khalif Henson MD Unavailable [phone] Terrence Morris NP Primary Care Provider Encounter Details Date Type Department Care Team (Latest Contact Info) Description 05/17/2018 Transcribe Orders [facility] [address] [place] [address] Wilian East MD [address] [address] Abdominal pain, epigastric (Primary Dx) Social History [...] (05/17/2018 11:49 AM EDT) HCV Negative Negative [facility] Comment: This is a screening test and should be confirmed with molecular testing Blood 05/17/2018 11:4 9 AM EDT 05/17/2018 11:54 AM EDT Wilian East MD LAB BLOOD BKR ORDERABLES F inal Result [address] [address] * Hepatitis B surface antibody (05/17/2018 11:49 AM EDT) HBV SURFACE ANTIBODY Negative [facility] Comment: Unvaccinated: Negative Vaccinated: Positive Blood 05/17/2018 11:4 9 AM EDT 05/17/2018 11:54 AM EDT Wilian East MD LAB BLOOD BKR ORDERABLES F inal Result Performing Organization Address [facility] Co de Phone Number [address] [address] * Comprehensive metabolic panel (05/17/2018 11:49 AM EDT) Pathologist [facility] SODIUM 139 133 - 146 mmol/L [facility] POTASSIUM 4.6 3.3 - 5.1 mmol/L [facility] CHLORIDE 102 96 - 108 mmol/L [facility] CO2 22 21 - 35 mmol/L [facility] BUN 12 6 - 19 mg/dL [facility] CREATININE 0.50 0.5 - 1.5 mg/dL [facility] GLUCOSE 96 70 - 99 mg/dL [facility] ALBUMIN 4.4 3.9 - 4.8 g/dL [facility] TOTAL PROTEIN 7.8 6.5 - 8.0 g/dL [facility] CALCIUM 9.5 8.4 - 10.3 mg/dL [facility] ALKALINE PHOSPHATASE 60 39 - 117 U/L [facility] TOTAL BILIRUBIN 0.2 0.0 - 1.2 mg/dL [facility] AST 22 0 - 37 U/L [facility] ALT 25 0 - 40 U/L [facility] GLOBULIN 3.4 1 - 4.8 g/dL [facility] EGFR >120 >59 mL/min/1.7 3m2 [facility] Comment:If patient is black, multiply result by 1.159. Estimated glomerular filtration rate calculated using the CKD-EPI equation. ANION GAP 20 10 - 20 mmol/L [facility] Blood 05/17/2018 11:4 9 AM EDT 05/17/2018 11:54 AM EDT us Wilian East MD LAB BLOOD BKR ORDERABLES F inal Result Performing Organization Address City/[facility]/ZIP Co de Phone Number [address] [address] * (ABNORMAL) CBC (05/17/2018 11:49 AM EDT) WBC 7.75 3.40 - 11.20 K/uL [facility] RBC 4.24 3.80 - 4.80 M/uL [facility] HGB 11.9(L) 12.0 - 15.0 g/dL [facility] HCT 35.9(L) 36.0 - 46.0 % [facility] PLT 368 130 - 400 K/uL [facility] MCV 84.7 79.0 - 98.0 fL [facility] MCH 28.1 27.0 - 34.8 pg [facility] MCHC 33.1 31.5 - 36.0 g/dL [facility] RDW 13.0 10.8 - 14.6 % [facility] MPV 10.0 9.4 - 12.4 fl [facility] NRBC 0.00 /100 WBCs [facility] ABSOLUTE NRBC 0.00 K/uL [facility] Blood 05/17/2018 11:4 9 AM EDT 05/17/2018 11:54 AM EDT us Wilian East MD LAB BLOOD BKR ORDERABLES F inal Result Performing Organization Address City/[facility]/ZIP Co de Phone Number [address] [address] * Tissue transglutaminase IgA (05/17/2018 11:49 AM EDT) TTG IGA ANTIBODY <1.2 <4.0 (Negative) U/mL [facility] DPT OF LAB MED AND PAT+ Blood 05/17/2018 11:4 9 AM EDT 05/18/2018 9:45 AM EDT us Wilian East MD LAB BLOOD BKR ORDERABLES F inal Result [facility] DPT OF LAB MED AND PAT+ [address] [place] [address] * (ABNORMAL) Immunoglobulin A (05/17/2018 11:49 AM EDT) IgA 454(H) 70 - 400 mg/dL [facility] Blood 05/17/2018 11:4 9 AM EDT 05/17/2018 11:54 AM EDT us Wilian East MD LAB BLOOD BKR ORDERABLES F inal Result Performing Organization Address City/[facility] Co de Phone Number [facility] [address] [place] [address] documented in this encounter Visit Diagnoses Diagnosis Abdominal pain, epigastric- Primary documented in this encounter Additional Health Concerns Assessment Noted Time A Body Mass Index follow-up plan has been documented for the patient 01/05/2018 9:49 AM EDT PHQ-2 Depression Total Score: 0 01/06/20 18 8:24 AM EDT documented as of this encounter Care Teams Glove Turner And Former Automatic Relationship Specialty Start Date End Date Khalif Henson MD [address] [place] [address] PCP - General Internal Medicine 10/18/17 02/23/19 Terrence Morris NP [address] [place] [address] PCP - General Family Medicine 02/24/19 Khalif Henson MD [address] [place] [address] 10/18/17 documented as of this encounter Additional Source Comments The information contained in this document represents components of the legal health record. It is not the complete legal health record.[facility]
== END 2025-07-10 10:44 | disposition home or self-care (01) ==
LOC: HO.HOS 10:08
DX: G56.02 Carpal tunnel syndrome, left upper limb (principal)
CPT/HCPCS: 99024